=== PATIENT | female | born 1960 | race Two or more races ===

== ENCOUNTER 2022-12-30 11:52 | Outpatient (REF) | payer OTHER, SELFPAY ==
[2022-12-30 12:11] LABS: MANUAL DIFF FLAG NO
[2022-12-30 12:29] LABS: Basophils Absolute Auto 0.1 X10*3/uL (0.0-0.2); Basophils Percent Auto 0.7 % (0-2); Eosinophils Absolute Auto 0.3 X10*3/uL (0.0-0.4); Eosinophils Percent Auto 3.7 % (0-4); Hematocrit 29.7 % (37.0-47.0); Hemoglobin 8.7 g/dl (12.0-16.0); Imm Gran Abs Auto 0.02 X10*3/uL (0.00-0.03); Imm Gran Pct Auto 0.3 % (0.0-0.4); Immature Retic Fraction 31.2 % (3.0-15.9); Lymphocytes Absolute Auto 1.5 X10*3/uL (1.2-4.9); Lymphocytes Percent Auto 21.7 % (20-40); Mean Corpuscular HGB Conc 29.3 g/dl (31.0-35.0); Mean Corpuscular Hemoglobin 22.3 pg (27.0-33.0); Mean Corpuscular Volume 76.2 fL (80.0-98.0); Mean Platelet Volume 9.1 fL (9.4-12.3); Monocytes Absolute Auto 0.5 X10*3/uL (0.1-1.2); Neutrophils Absolute Auto 4.7 x10*3/uL (2.0-8.3); Neutrophils Percent Auto 66.6 % (45-73); Platelet Count 512 X10*3/uL (160-400); Retic HGB Equivalent 21.6 pg (30.0-35.0); Reticulocyte Percent 1.5 % (0.5-1.8); Reticulocytes Absolute 0.057 X10*6/uL (0.026-0.095)
[2022-12-30 12:58] LABS: Alanine Aminotransferase 12 U/L (0-31); Alkaline Phosphatase 80 U/L (39-117); Anion Gap 13 (12-20); Aspartate Amino Transferase 17 U/L (5-31); Bilirubin Total 0.6 mg/dL (0.0-1.0); Blood Urea Nitrogen 12 mg/dL (9-16); Calcium 9.4 mg/dL (8.4-10.2); Carbon Dioxide 24 mmol/L (22-29); Chloride 105 mmol/L (96-108); Cholesterol 231 mg/dL; Estimated Glomerular Filt Rate > 60; Glucose Fasting 92 mg/dL (60-99); HDL Cholesterol 63 mg/dL; LDL Cholesterol Calculated 141 mg/dl; Potassium 4.5 mmol/L (3.3-5.1); Sodium 137 mmol/L (135-145); Total Protein 7.8 g/dL (6.5-8.0); Triglycerides 135 mg/dL
[2022-12-30 13:12] LABS: Ferritin 7 ng/mL (10-250)
[2022-12-30 13:13] LABS: Erythrocyte Sedimentation Rate 70 MM/HR (0-20)
== END 2022-12-30 11:53 | disposition home or self-care (01) ==
LOC: HO.LAB 11:52
PROVIDERS: PCP Internal Medicine Medical Oncology; Visit Provider Internal Medicine Medical Oncology
DX: D64.9 Anemia, unspecified (principal); E78.5 Hyperlipidemia, unspecified; E66.9 Obesity, unspecified
CPT/HCPCS: 36415; 80053; 80061; 82728; 85025; 85045; 85652

== ENCOUNTER 2023-01-18 09:11 | Day surgery (SDC) | payer OTHER, SELFPAY ==
--- NOTE | 2023-01-17 12:07 | HO.ANESPROP2 ---
Documented by User: Emelina Allan NP 01/17/23 12:07 HPI - Anesthesia Eval Consult details Narrative: 62yo F for Upper Endoscopy and Colonoscopy [facility] Past Medical History Medical History Anemia Asthma HTN (hypertension) Renal stones Surgical History Surgical History Hx of appendectomy Hx of tubal ligation Social History Social History Patient Tobacco Use Status: Never used Tobacco Are you DNR?: No Advance Directives: No Advance Directives Information Provided: Yes Nutrition Risks: No Nutritional Risk Meds Allergies Allergy/AdvReac Type Severity Reaction Status Date / Time iodine Allergy Unknown Unknown Verified 01/17/23 12:06 iv contrast Allergy Unknown Unknown Uncoded 01/17/23 12:06 Home Medications Medication Instructions Recorded Confirmed Last Taken Type albuterol sulfate 90 mcg/actuation inhalation 01/17/23 01/17/23 Unknown History aerosol inhaler (Ventolin HFA) benzonatate 100 mg capsule 100 mg PO TID 01/17/23 01/17/23 Unknown History cetirizine 10 mg tablet 10 mg PO DAILY 01/17/23 01/17/23 Unknown History erythromycin 5 mg/gram (0.5 %) eye ophthalmic (eye) 01/17/23 Unknown History ointment ferrous sulfate 325 mg (65 mg 325 mg PO DAILY 01/17/23 01/17/23 01/14/23 History iron) tablet,delayed release fluconazole 150 mg tablet mg PO 01/17/23 Unknown History lisinopril 30 mg tablet 30 mg PO DAILY 01/17/23 01/17/23 01/18/23 History pantoprazole 40 mg tablet,delayed 40 mg PO DAILY 01/17/23 01/17/23 Unknown History release Exam Exam Date and Time: January 17, 2023 120 Pertinent Lab Results Pertinent Lab Results: Laboratory Tests 12/30/22 12/30/22 12:09 12:09 WBC 7.0 Hgb 8.7 L Hct 29.7 L Plt Count 512 H Sodium 137 Potassium 4.5 Chloride 105 Carbon Dioxide 24 BUN 12 Creatinine 0.68 Assessment and Plan Assessment Anesthesia Assessment: Chart Reviewed Documented by User: Adelina Botello MD 01/18/23 11:22 [facility] Past Medical History Medical History Anemia Asthma HTN (hypertension) Renal stones Family History Family history of problems with anesthesia: No Surgical History Surgical History Hx of appendectomy Hx of tubal ligation History of Problems with Anesthesia: No Social History Social History Patient Tobacco Use Status: Never used Tobacco Are you DNR?: No Advance Directives: No Advance Directives Information Provided: Yes Nutrition Risks: No Nutritional Risk Meds Allergies Allergy/AdvReac Type Severity Reaction Status Date / Time iodine Allergy Unknown Unknown Verified 01/17/23 12:06 iv contrast Allergy Unknown Unknown Uncoded 01/17/23 12:06 Home Medications Medication Instructions Recorded Confirmed Last Taken Type albuterol sulfate 90 mcg/actuation inhalation 01/17/23 01/17/23 Unknown History aerosol inhaler (Ventolin HFA) benzonatate 100 mg capsule 100 mg PO TID 01/17/23 01/17/23 Unknown History cetirizine 10 mg tablet 10 mg PO DAILY 01/17/23 01/17/23 Unknown History erythromycin 5 mg/gram (0.5 %) eye ophthalmic (eye) 01/17/23 Unknown History ointment ferrous sulfate 325 mg (65 mg 325 mg PO DAILY 01/17/23 01/17/23 01/14/23 History iron) tablet,delayed release fluconazole 150 mg tablet mg PO 01/17/23 Unknown History lisinopril 30 mg tablet 30 mg PO DAILY 01/17/23 01/17/23 01/18/23 History pantoprazole 40 mg tablet,delayed 40 mg PO DAILY 01/17/23 01/17/23 Unknown History release Exam Airway Mallampati Class: II TM Dist: >3cm Neck ROM: Full Heart: rrr Lungs: cta Assessment and Plan Assessment Anesthesia Assessment: Anesthesia Plan Discussed Final Anesthetic Review Family History of Problems with Anesthesia: No History of Problems with Anesthesia: No NPO: Yes ASA Class: III Final Preanesthetic Review: No Changes in Pt Med Stat, Meds/Allgs Chart Reviewed, Consent Obtained/Reviewed and Anes Risks/Benef Reviewed Patient Risk: Intermediate Procedure Risk: Low Anesthetic Plan Anesthetic Plan: MAC: Disposition: Standard PACU
[2023-01-18] VITALS (7 sets, daily range): BP systolic 108–134; BP diastolic 43–67; PULSE 80–94; RESP 16–20; TEMP 36.4; O2SAT 96–99; BMI 31.8
[2023-01-18] MEDS: Lactated Ringers 1,000 ML 100 ML IVCONT (10:50)
--- NOTE | 2023-01-18 11:52 | MHC.SHP ---
Pre-Procedural Eval Section A Date of Service: 01/18/23 The patient is an INPATIENT: No Changes since office visit: No Cold of Flu in the past 2 weeks, No New Medical Problems, No Changes in Medication and No Patient answered all questions The History & Physical has been completed within 30 days and I have reviewed it.: Yes Section B Chief Complaint: Iron deficiency anemia, Other fecal abnormalities Allergies: Allergies Allergy/AdvReac Type Severity Reaction Status Date / Time iodine Allergy Unknown Unknown Verified 01/17/23 12:06 iv contrast Allergy Unknown Unknown Uncoded 01/17/23 12:06 Plan I have reviewed the history and physical and performed a pertinent physical examination on my patient. No changes have occurred unless specified. Time Spent With Patient Time: Total time managing care of this patient today ____ minutes.
--- NOTE | 2023-01-18 12:33 | P.BOP_ITS ---
Brief Operative Note Date of Service: 01/18/23 Pre-op diagnosis: iron def anemia heme pos stool Post-op diagnosis: same Procedure: egd colonoscopy Surgeon: Selwyn Leonard Anesthesia: MAC Was an Environmental Attorney used for this Procedure?: No Estimated blood loss (mL): 5 Pathology: other Condition: stable Disposition: PACU
--- NOTE | 2023-01-18 13:17 | OP_ITS ---
DATE OF SERVICE: 01/18/2023 SURGEON: Selwyn Leonard MD INDICATIONS: Iron deficiency anemia and Hemoccult-positive stools. PREOPERATIVE DIAGNOSIS: POSTOPERATIVE DIAGNOSIS: PROCEDURE PERFORMED: Upper endoscopy with biopsy, colonoscopy to the terminal ileum. ESTIMATED BLOOD LOSS: COMPLICATIONS: ANESTHESIA: Monitored anesthesia care. ASSISTANTS: SPECIMENS: DESCRIPTION OF PROCEDURE: A history and physical was performed. The risks and benefits of the procedure were explained to the patient, and informed consent was obtained. The patient was placed in the left lateral decubitus position. The Olympus video gastroscope was introduced into the esophagus, stomach, and duodenum. Examination was performed. The scope was removed she was repositioned for colonoscopy. A digital rectal exam was performed and was found to be normal. The Olympus pediatric video colonoscope was introduced into the rectum and advanced to the cecum without difficulty. The cecum was identified by transillumination, palpation, and identification of ileocecal valve. Examination was performed. The scope was removed. She tolerated the procedure well, and was returned to recovery area in stable condition. FINDINGS: Upper endoscopy: 1. Esophagus: The esophagus was normal. There was no esophagitis. There was a 5 cm hiatal hernia. Biopsies were obtained from the EG junction, which was slightly irregular. 2. Stomach: The stomach showed no evidence of masses, ulcers, or polyps. Antral biopsies were obtained to evaluate for H pylori. 3. Duodenum: The bulb and 2nd portion were normal. Biopsies were obtained from the 2nd portion to evaluate for malabsorption. Colonoscopy: The terminal ileum was examined and appeared normal. This was examined for about 20 cm. The visualized colonic mucosa was within normal limits without evidence of masses or ulcers. The quality of the prep was good. There was mild sigmoid diverticulosis. Retroflexed examination showed some small internal hemorrhoids. IMPRESSION: 1. Hiatal hernia. 2. Normal colonoscopy. RECOMMENDATION: 1. Follow up the biopsy results. 2. Repeat colonoscopy is recommended in 10 years for average risk individuals. MD BE Barahona/MODL / [id number]
== END 2023-01-18 14:34 | disposition home or self-care (01) ==
PROVIDERS: PCP Internal Medicine Medical Oncology; Visit Provider Internal Medicine Gastroenterology
PROC: (CPT 45378; principal; 2023-01-18 10:50)
DX: D50.9 Iron deficiency anemia, unspecified (principal); R19.5 Other fecal abnormalities; Z80.0 Family history of malignant neoplasm of digestive organs; K57.30 Diverticulosis of large intestine without perforation or abscess without bleeding; K64.8 Other hemorrhoids; K21.9 Gastro-esophageal reflux disease without esophagitis; K29.50 Unspecified chronic gastritis without bleeding; K44.9 Diaphragmatic hernia without obstruction or gangrene; I10 Essential (primary) hypertension; Z87.442 Personal history of urinary calculi; Z98.51 Tubal ligation status; Z79.899 Other long term (current) drug therapy; Z91.041 Radiographic dye allergy status
CPT/HCPCS: 45378; 43239; 88305; 88342; J2250; J2370

== ENCOUNTER 2023-01-25 13:47 | Outpatient (REF) | payer OTHER, SELFPAY ==
[2023-01-25 13:58] LABS: MANUAL DIFF FLAG NO
[2023-01-25 14:55] LABS: Basophils Absolute Auto 0.1 X10*3/uL (0.0-0.2); Basophils Percent Auto 0.7 % (0-2); Eosinophils Absolute Auto 0.3 X10*3/uL (0.0-0.4); Eosinophils Percent Auto 4.3 % (0-4); Hematocrit 32.3 % (37.0-47.0); Hemoglobin 9.3 g/dl (12.0-16.0); Imm Gran Abs Auto 0.02 X10*3/uL (0.00-0.03); Imm Gran Pct Auto 0.3 % (0.0-0.4); Immature Retic Fraction 30.2 % (3.0-15.9); Lymphocytes Absolute Auto 1.3 X10*3/uL (1.2-4.9); Lymphocytes Percent Auto 18.5 % (20-40); Mean Corpuscular HGB Conc 28.8 g/dl (31.0-35.0); Mean Corpuscular Hemoglobin 22.6 pg (27.0-33.0); Mean Corpuscular Volume 78.6 fL (80.0-98.0); Mean Platelet Volume 9.5 fL (9.4-12.3); Monocytes Absolute Auto 0.6 X10*3/uL (0.1-1.2); Monocytes Percent Auto 8.1 % (2-11); Neutrophils Absolute Auto 4.7 x10*3/uL (2.0-8.3); Neutrophils Percent Auto 68.1 % (45-73); Platelet Count 416 X10*3/uL (160-400); Red Blood Count 4.11 X10*6/uL (4.20-5.50); Red Cell Distribution Width 23.4 % (11.0-16.0); Retic HGB Equivalent 24.7 pg (30.0-35.0); Reticulocyte Percent 1.7 % (0.5-1.8); White Blood Count 6.9 X10*3/uL (4.8-10.8)
[2023-01-25 15:41] LABS: Ferritin 13 ng/mL (10-250)
== END 2023-01-25 13:48 | disposition home or self-care (01) ==
LOC: HO.LAB 13:47
PROVIDERS: PCP Internal Medicine Medical Oncology; Visit Provider Internal Medicine Medical Oncology
DX: E78.5 Hyperlipidemia, unspecified (principal); E66.9 Obesity, unspecified; D50.0 Iron deficiency anemia secondary to blood loss (chronic)
CPT/HCPCS: 36415; 82728; 85025; 85045

== ENCOUNTER → 2023-02-23 08:14 | Outpatient (BNVA) | payer OTHER, SELFPAY | PROVIDERS: PCP Internal Medicine Medical Oncology; Visit Provider Internal Medicine Gastroenterology ==

== ENCOUNTER 2023-04-01 17:26 | Outpatient (REF) | payer MEDICAID, SELFPAY ==
[2023-04-01 18:18] LABS: Appearance Urine Cloudy; Color Urine Yellow; Glucose Urine UA Negative (Negative); Leukocyte Esterase Urine Large (3+) (Negative); Nitrite Urine Negative (Negative); PH 5.5 (5.0-9.0); UMIC TRIGGER UACC YES; Urine Blood Trace (Negative); Urine Ketones Negative (Negative); Urine Protein Trace mg/dL (Neg-Trace)
[2023-04-01 18:22] LABS: Bacteria Urine 4+ (None Seen); Hyaline Casts Urine 0-2 /LPF (0-2); RBC Urine 0-2 /HPF (0-2); UACC Culture Trigger YES; WBC Urine >50 /HPF (0-5)
== END 2023-04-01 17:27 | disposition home or self-care (01) ==
LOC: HO.HHCLNP 17:26
PROVIDERS: Visit Provider Internal Medicine Medical Oncology
DX: N39.0 Urinary tract infection, site not specified (principal)
CPT/HCPCS: 81001; 87086

== ENCOUNTER 2023-04-13 14:14 | Outpatient (REF) | payer MEDICAID, SELFPAY ==
[2023-04-15 22:33] LABS: TS Negative Control Passed; TS Panel A 0; TS Panel B 0; TS Positive Control Passed; TSpotTB Negative (Negative)
== END 2023-04-13 14:15 | disposition home or self-care (01) ==
LOC: HO.LAB 14:14
PROVIDERS: PCP Internal Medicine Medical Oncology; Visit Provider Internal Medicine Medical Oncology
DX: Z11.1 Encounter for screening for respiratory tuberculosis (principal)
CPT/HCPCS: 36415; 86481

== ENCOUNTER 2023-08-05 17:22 | Emergency (ER) | payer MEDICAID, SELFPAY ==
--- NOTE | ~2023-08-05 | CT_ITS ---
EXAMINATION: CT ABDOMEN AND PELVIS WITHOUT CONTRAST CLINICAL INFORMATION: right abdominal pain. COMPARISON: No pertinent prior studies are available for comparison. TECHNIQUE: Multidetector volumetric imaging was performed from the superior aspect of the liver through the pubic symphysis without contrast per renal stone protocol. Sagittal and coronal reformatted images were obtained on the technologist workstation. This CT examination was performed using dose optimization techniques as appropriate, variously including the following: *Automated exposure control *Adjustment of mA and/or kV according to patient size (this includes techniques or standardized protocols for targeted exams where dose is matched to indication/reason for exam; i.e. extremities or head) *Use of iterative reconstruction technique DLP: 1259 mGy-cm. FINDINGS: LUNG BASES: Minimal dependent atelectasis. Moderate-sized hiatal hernia. LIVER, GALLBLADDER, BILIARY TREE: The non-contrast liver is normal in size, shape, and attenuation. No focal hepatic lesion or biliary ductal dilatation is present. The gallbladder is unremarkable with no evidence of radiopaque gallstones, gallbladder wall thickening, or obvious pericholecystic inflammatory changes. PANCREAS: Unremarkable. SPLEEN: Unremarkable. ADRENAL GLANDS: Unremarkable. KIDNEYS AND URETERS: No hydronephrosis or hydroureter. No perinephric stranding. Multiple bilateral nonobstructing intrarenal calculi are seen the largest on the left is a 0.8 cm lower pole calculi and the largest on the right is a 0.6 cm upper pole calculi. I do not appreciate any ureteric calculi. BLADDER: Unremarkable. GASTROINTESTINAL TRACT: Scattered colonic diverticulosis but no colonic wall thickening or pericolonic inflammatory change to suggest diverticulitis. Mild amount of stool seen in the distal ileum possibly due to reflux ABDOMINAL WALL: No significant hernia is appreciated. LYMPHOVASCULAR STRUCTURES: No lymphadenopathy. The aorta is unremarkable.. PELVIC VISCERA: Retroverted uterus. OSSEUS STRUCTURES: Unremarkable. CT/CT abdomen pelvis wo IV con IMPRESSION: Multiple bilateral nonobstructing intrarenal calculi. No obstructive changes to the kidneys. No ureteric calculi. No acute intra-abdominal process seen.
--- NOTE | ~2023-08-05 | CT_ITS ---
EXAMINATION: CT HEAD WITHOUT CONTRAST CLINICAL INFORMATION: Headache. COMPARISON: None TECHNIQUE: Contiguous axial imaging was performed from the skull base to vertex without intravenous administration of contrast. This CT examination was performed using dose optimization techniques as appropriate, variously including the following: *Automated exposure control *Adjustment of mA and/or kV according to patient size (this includes techniques or standardized protocols for targeted exams where dose is matched to indication/reason for exam; i.e. extremities or head) *Use of iterative reconstruction technique DLP: 688 mGy-cm FINDINGS: There is no evidence of acute intracranial hemorrhage or edematous territorial infarction. There is no abnormal attenuation within the brain parenchyma. Charles-white matter differentiation is preserved. The ventricles are normal in size and configuration. No evidence for obstructive hydrocephalus. No abnormal mass effect or midline shift. No extra-axial fluid collections. No acute soft tissue or osseous abnormalities. The mastoid air cells and paranasal sinuses are clear. CT/CT head/brain wo IV con IMPRESSION: No evidence of acute intracranial hemorrhage or edematous territorial infarction.
[2023-08-05 17:30] VITALS: BP 127/70; BP 144/52; PULSE 80; RESP 16; TEMP 36.6; O2SAT 98; BMI 42.0
--- NOTE | 2023-08-05 17:34 | ECG_ITS ---
Test Reason : PAIN Blood Pressure : / mmHG Vent. Rate : 081 BPM Atrial Rate : 081 BPM P-R Int : 162 ms QRS Dur : 084 ms QT Int : 368 ms P-R-T Axes : 039 076 055 degrees QTc Int : 427 ms Normal sinus rhythm Normal ECG When compared with ECG of 05-SEP-2003 19:57, Nonspecific T wave abnormality no longer evident in Anterior leads Referred By: Mic Rowell Electronically Signed By:DEYSI WILKINSON MD
[2023-08-05 17:53] VITALS: BP 144/52; PULSE 84; RESP 18; TEMP 36.6; O2SAT 98
[2023-08-05 17:55] LABS: MANUAL DIFF FLAG NO
[2023-08-05 17:56] LABS: Basophils Percent Auto 0.4 % (0-2); Eosinophils Absolute Auto 0.3 X10*3/uL (0.0-0.4); Eosinophils Percent Auto 2.8 % (0-4); Hematocrit 36.7 % (37.0-47.0); Hemoglobin 11.2 g/dl (12.0-16.0); Imm Gran Abs Auto 0.03 X10*3/uL (0.00-0.03); Imm Gran Pct Auto 0.3 % (0.0-0.4); Lymphocytes Absolute Auto 1.3 X10*3/uL (1.2-4.9); Lymphocytes Percent Auto 13.2 % (20-40); Mean Corpuscular HGB Conc 30.5 g/dl (31.0-35.0); Mean Corpuscular Hemoglobin 26.6 pg (27.0-33.0); Mean Corpuscular Volume 87.2 fL (80.0-98.0); Mean Platelet Volume 9.9 fL (9.4-12.3); Monocytes Absolute Auto 0.5 X10*3/uL (0.1-1.2); Monocytes Percent Auto 4.5 % (2-11); Neutrophils Percent Auto 78.8 % (45-73); Platelet Count 336 X10*3/uL (160-400); Red Blood Count 4.21 X10*6/uL (4.20-5.50); Red Cell Distribution Width 16.5 % (11.0-16.0); White Blood Count 10.1 X10*3/uL (4.8-10.8)
[2023-08-05 18:13] LABS: Alanine Aminotransferase 20 U/L (0-31); Albumin Level 3.8 g/dL (3.5-5.0); Alkaline Phosphatase 84 U/L (39-117); Anion Gap 11 (12-20); Aspartate Amino Transferase 21 U/L (5-31); Bilirubin Total 0.3 mg/dL (0.0-1.0); Blood Urea Nitrogen 23 mg/dL (9-16); Calcium 9.3 mg/dL (8.4-10.2); Carbon Dioxide 26 mmol/L (22-29); Chloride 107 mmol/L (96-108); Creatinine Clr Calc Pharmacy 46.3; Estimated Glomerular Filt Rate > 60; Glucose Random 112 mg/dL (60-115); Lipase 28 U/L (8-78); Potassium 4.9 mmol/L (3.3-5.1); Prothrombin Time 11.9 SEC (11.1-13.3); Sodium 139 mmol/L (135-145); Total Protein 8.3 g/dL (6.5-8.0)
[2023-08-05 18:16] LABS: Partial Thromboplastin Time 21.7 SEC (26.0-36.4)
[2023-08-05 18:20] LABS: Troponin-I High Sensitivity < 2.7 ng/L (<3.5-17.0)
[2023-08-05 18:30] VITALS: BP 121/48; PULSE 75
[2023-08-05 18:32] VITALS: BP 128/55; PULSE 82
--- NOTE | 2023-08-05 18:32 | ED_ITS ---
HPI - General Adult General Chief complaint: General Medical Stated complaint: abd pain Time Seen by Provider: 08/05/23 17:22 Source: patient, RN notes reviewed and old records reviewed Mode of arrival: ambulatory Limitations: no limitations History of Present Illness HPI narrative: 62-year-old female with past medical history significant for chronic anemia, hypertension, GERD presents for evaluation of weakness. Patient reports that she had abdominal pain with increased weakness and dizziness starting earlier today. She reports a similar episode in November of this year where she was seen at [facility] and needed a blood transfusion. Patient reports that she has had on off nose bleeds for the last 7 months. She is followed up with ENT and was told that my nose is not the issue. Patient has not had a nosebleed at all today he denies any black or bloody stool her chief complaint today is abdominal pain and weakness. Related Data Home Medications Medication Instructions Recorded Confirmed albuterol sulfate 90 mcg/actuation inhalation 01/17/23 01/17/23 aerosol inhaler (Ventolin HFA) benzonatate 100 mg capsule 100 mg PO TID 01/17/23 01/17/23 cetirizine 10 mg tablet 10 mg PO DAILY 01/17/23 01/17/23 erythromycin 5 mg/gram (0.5 %) eye ophthalmic (eye) 01/17/23 ointment ferrous sulfate 325 mg (65 mg 325 mg PO DAILY 01/17/23 01/17/23 iron) tablet,delayed release fluconazole 150 mg tablet mg PO 01/17/23 lisinopril 30 mg tablet 30 mg PO DAILY 01/17/23 01/17/23 pantoprazole 40 mg tablet,delayed 40 mg PO DAILY 01/17/23 01/17/23 release Allergies Allergy/AdvReac Type Severity Reaction Status Date / Time iodine Allergy Unknown Unknown Verified 08/05/23 17:39 iv contrast Allergy Unknown Unknown Uncoded 08/05/23 17:39 Review of Systems 2 Constitutional: Constitutional: Denies chills, Denies fever(s) and Denies headache(s) ENT: Denies headache(s) Cardiovascular: Cardiovascular: Denies chest pain and Denies dyspnea Respiratory: Respiratory: Denies cough and Denies dyspnea Gastrointestinal: Gastrointestinal: Reports abdominal pain, Denies melena, Denies hematochezia, Reports nausea and Denies vomiting Musculoskeletal: Musculoskeletal: Denies back pain Integumentary/Breasts: Skin/Breast: Denies rash Neurologic: Denies headache(s) [facility] Past Medical History Medical History (Updated 08/05/23 @ 18:41 by Mic Rowell) Anemia Renal stones Asthma HTN (hypertension) Surgical History Hx of appendectomy Hx of tubal ligation Social History Social History Alcohol intake: never Patient Tobacco Use Status: Never used Tobacco Smoked in Last 30 Days: No Use of substances other than those prescribed or required for medical reasons: No Advance Directives: No Advance Directives Information Provided: Yes Patient : No Physical Exam ED Vital Signs: Vital Signs - 24 hr 08/05/23 17:30 08/05/23 17:53 08/05/23 18:30 Temperature 97.8 F 97.8 F Pulse Rate 80 84 75 Respiratory Rate 16 18 Blood Pressure 144/52 H 144/52 H 121/48 L Pulse Oximetry 98 98 Oxygen Delivery Method Room Air Room Air 08/05/23 18:32 08/05/23 18:33 08/05/23 19:26 Temperature Pulse Rate 82 87 81 Respiratory Rate 17 Blood Pressure 128/55 L 115/59 L 121/48 L Pulse Oximetry 97 Oxygen Delivery Method Room Air BMI result Body Mass Index 42.0 Const General: healthy appearing, comfortable, no acute distress, alert and awake Nutritional Appearance: well nourished Orientation/consciousness: patient oriented x3 HENMT Head: Yes normocephalic and Yes atraumatic General nose exam: Normal external nose present, Normal nares present, No nasal polyps present, Normal nasal mucous membranes and turbinates present and no epistaxis Eyes Eyelids: Yes eyelids normal Conjunctivae: conjunctivae normal Sclerae: sclerae normal Corneas: corneas normal Pupils: Equal, round and reactive pupils present EOM: EOMs intact bilaterally Neck Neck: Yes full ROM Resp Effort & Inspection: normal respiratory effort, able to speak in complete sentences, no audible wheezes and not labored Auscultation: clear to auscultation bilaterally Cardio Rate: regular rate Rhythm: regular rhythm GI Inspection: No distended Palpation (GI): Soft to palpation, not firm, nontender, no guarding and not rigid Skin General skin exam: no rashes or lesions noted and elasticity normal Neuro General: patient oriented x3 Cranial nerves: Yes Equal, round and reactive pupils present and Yes Bilaterally intact EOM present Cognition (Neuro): normal cognition Extrem Other: Moving all extremities well without any obvious deformities Course Reevaluation(s) Reevaluation #1: patient's workup largely unremarkable, shows requesting CT scan of brain due to the headaches which I ordered. There was no significant acute pathology noted on the head CT for abdominal CT scan. Labs without any significant abnormalities compared to baseline. But for some not get a UA over the patient denies any specific symptoms and would like to follow-up with PCP regarding this. Given that she has no symptoms I feel it is appropriate to discharge the patient home at this time Time: 22:02 Medications Administered Discontinued Medications Generic Name Dose Route Start Last Admin Trade Name Freq PRN Reason Stop Dose Admin Sodium Chloride 1,000 mls @ 999 mls/hr 08/05/23 19:15 08/05/23 20:37 Ns IV 08/05/23 20:15 Infused .Q1H1M ESTELA Infusion Medical Decision Making Medical Decision Making [facility] Narrative: 62-year-old female presents for evaluation of abdominal pain and weakness. She reports a history of chronic anemia but no nose bleeds or black or bloody stool today. On exam, the patient's vital signs are stable, her blood pressure is slightly elevated to 144/52. Her EKG is normal sinus rhythm with a rate of 81 beats per minute. No ectopy, no ischemic changes. Labs are pending this time. Differential Diagnosis Differential Diagnoses: The differential diagnosis associated with the presentation includes Abdominal pain Gastroenteritis Symptomatic anemia Chronic anemia Epistaxis GI bleed Admission/Observation Consideration of admission/observation: Escalation of care including admission/observation considered Lab Data [facility] Lab Attestation statement: I reviewed the patient's lab results. patient has no leukocytosis, she has anemia however significantly improved compared to her recent baseline with a hemoglobin 11.2 and hematocrit 36.7. Patient's most recent hemoglobin hematocrit from a was 9.3 and 32.3 respectively. Anemia does not appear to be the acute issue. Patient's chemistries do not have any significant electrolyte abnormalities. Her BUN is slightly above normal at 23 but her creatinine is normal at 0.71. 08/05/23 17:51 08/05/23 17:51 Labs: Lab Results 08/05/23 Range/Units 17:51 WBC 10.1 (4.8-10.8) X10*3/uL RBC 4.21 (4.20-5.50) X10*6/uL Hgb 11.2 L D (12.0-16.0) g/dl Hct 36.7 L (37.0-47.0) % MCV 87.2 (80.0-98.0) fL MCH 26.6 L (27.0-33.0) pg MCHC 30.5 L (31.0-35.0) g/dl RDW 16.5 H (11.0-16.0) % Plt Count 336 (160-400) X10*3/uL MPV 9.9 (9.4-12.3) fL Immature Gran % (Auto) 0.3 (0.0-0.4) % Neut % (Auto) 78.8 H (45-73) % Lymph % (Auto) 13.2 L (20-40) % [place] % (Auto) 4.5 (2-11) % Eos % (Auto) 2.8 (0-4) % Baso % (Auto) 0.4 (0-2) % Lymph # (Auto) 1.3 (1.2-4.9) X10*3/uL [place] # (Auto) 0.5 (0.1-1.2) X10*3/uL Eos # (Auto) 0.3 (0.0-0.4) X10*3/uL Baso # (Auto) 0.0 (0.0-0.2) X10*3/uL Abs Immat Gran (auto) 0.03 (0.00-0.03) X10*3/uL Absolute Neuts (auto) 8.0 (2.0-8.3) x10*3/uL Absolute Nucleated RBC 0.000 (0.0-0.012) X10*3/uL Nucleated RBC % (auto) 0.0 (0.0-0.2) /100WBC PT 11.9 (11.1-13.3) SEC INR 1.0 (0.9-1.1) APTT 21.7 L (26.0-36.4) SEC Sodium 139 (135-145) mmol/L Potassium 4.9 (3.3-5.1) mmol/L Chloride 107 (96-108) mmol/L Carbon Dioxide 26 (22-29) mmol/L Anion Gap 11 L (12-20) BUN 23 H (9-16) mg/dL Creatinine 0.71 (0.5-1.4) mg/dL Estim Creat Clear Calc 46.3 Estimated GFR > 60 Random Glucose 112 (60-115) mg/dL Calcium 9.3 (8.4-10.2) mg/dL Total Bilirubin 0.3 (0.0-1.0) mg/dL AST 21 (5-31) U/L ALT 20 (0-31) U/L Alkaline Phosphatase 84 (39-117) U/L Troponin I High Sens < 2.7 (<3.5-17.0) ng/L Total Protein 8.3 H (6.5-8.0) g/dL Albumin 3.8 (3.5-5.0) g/dL Lipase 28 (8-78) U/L Blood Type O Positive Antibody Screen NEGATIVE Independent Interpretation I performed an independent interpretation of an: EKG ( Normal sinus rhythm with rate of 81 beats per minute. No ectopy or ischemic changes) Radiology Impression Discussion of test interpretation with radiology: I have reviewed the radiologist's reading. ( no evidence of acute intracranial hemorrhage or edematous territorial infarction) Radiologist Impression: multiple bilateral nonobstructing intrarenal calculi no obstructive changes to the kidneys. Discharge Plan Discharge Clinical Impression: Abdominal pain, Dizziness Patient Disposition: Home, Self-Care Instructions: Dizziness (ED) Additional Instructions: Your workup in the emergency department today was reassuring this includes your blood work, CT scan of your head as well as her abdomen if you have any concerns about a urinary tract infection, you may follow-up with doctor, as a urinalysis was not performed today return for new or worsening symptoms Prescriptions: No Action cetirizine 10 mg tablet 10 mg PO DAILY fluconazole 150 mg tablet PO benzonatate 100 mg capsule 100 mg PO TID pantoprazole 40 mg tablet,delayed release (DR/EC) 40 mg PO DAILY erythromycin 5 mg/gram (0.5 %) ointment ophthalmic (eye) lisinopril 30 mg tablet 30 mg PO DAILY albuterol sulfate [Ventolin HFA] 90 mcg/actuation HFA aerosol inhaler inhalation ferrous sulfate 325 mg (65 mg iron) tablet,delayed release (DR/EC) 325 mg PO DAILY
[2023-08-05 18:33] VITALS: BP 115/59; PULSE 87
[2023-08-05 19:26] VITALS: BP 121/48; PULSE 81; RESP 17; O2SAT 97
[2023-08-05] MEDS: 0.9 % Sodium Chloride 1,000 ML 999 ML IV (19:26)
== END 2023-08-05 22:32 | disposition home or self-care (01) ==
PROVIDERS: Physician Assistant; Emergency Provider Emergency Medicine; PCP Internal Medicine Medical Oncology
DX: R10.9 Unspecified abdominal pain (principal); R42 Dizziness and giddiness; D64.9 Anemia, unspecified; R07.89 Other chest pain; I10 Essential (primary) hypertension; R51.9 Headache, unspecified; Z79.899 Other long term (current) drug therapy
CPT/HCPCS: 36415; 70450; 74176; 80053; 83690; 84484; 85025; 85610; 85730; 86850; 86900; 86901; 93005; 96360; 99284; 99285

== ENCOUNTER 2023-09-30 14:37 | Outpatient (REF) | payer MEDICAID, SELFPAY | END 2023-09-30 14:38 | disposition home or self-care (01) | LOC: HO.MAMMO 14:37 | PROVIDERS: PCP Internal Medicine Medical Oncology; Visit Provider Internal Medicine Medical Oncology | DX: Z12.31 Encounter for screening mammogram for malignant neoplasm of breast (principal) | CPT/HCPCS: 77063; 77067 ==

== ENCOUNTER → 2023-09-30 15:00 | Outpatient (BNV) | payer MEDICAID, SELFPAY | PROVIDERS: PCP Internal Medicine Medical Oncology; Visit Provider Radiology Diagnostic Radiology | DX: Z12.31 Encounter for screening mammogram for malignant neoplasm of breast (principal) | CPT/HCPCS: 77063; 77067 ==

== ENCOUNTER 2023-10-25 18:56 | Outpatient (REF) | payer MEDICAID, SELFPAY | END 2023-10-25 18:57 | disposition home or self-care (01) | LOC: HO.LNP 18:56 | PROVIDERS: Visit Provider Internal Medicine Medical Oncology | DX: J02.9 Acute pharyngitis, unspecified (principal) | CPT/HCPCS: 87070 ==

== ENCOUNTER 2024-03-06 14:01 | Outpatient (REF) | payer MEDICAID, SELFPAY ==
[2024-03-06 14:16] LABS: MANUAL DIFF FLAG NO
[2024-03-06 14:38] LABS: Basophils Absolute Auto 0.1 X10*3/uL (0.0-0.2); Basophils Percent Auto 0.5 % (0-2); Eosinophils Absolute Auto 0.2 X10*3/uL (0.0-0.4); Eosinophils Percent Auto 2.5 % (0-4); Hematocrit 23.5 % (37.0-47.0); Imm Gran Abs Auto 0.04 X10*3/uL (0.00-0.03); Imm Gran Pct Auto 0.4 % (0.0-0.4); Lymphocytes Absolute Auto 1.4 X10*3/uL (1.2-4.9); Lymphocytes Percent Auto 14.5 % (20-40); Mean Corpuscular HGB Conc 26.8 g/dl (31.0-35.0); Mean Corpuscular Hemoglobin 17.5 pg (27.0-33.0); Mean Corpuscular Volume 65.5 fL (80.0-98.0); Mean Platelet Volume 8.9 fL (9.4-12.3); Monocytes Absolute Auto 0.6 X10*3/uL (0.1-1.2); Monocytes Percent Auto 6.8 % (2-11); NRBC Pct Auto 0.2 /100WBC (0.0-0.2); Neutrophils Absolute Auto 7.1 x10*3/uL (2.0-8.3); Neutrophils Percent Auto 75.3 % (45-73); Platelet Count 568 X10*3/uL (160-400); Red Blood Count 3.59 X10*6/uL (4.20-5.50); Red Cell Distribution Width 20.1 % (11.0-16.0); White Blood Count 9.5 X10*3/uL (4.8-10.8)
[2024-03-06 14:42] LABS: Hemoglobin 6.3 g/dl (12.0-16.0); Prothrombin Time 12.7 SEC (11.1-13.3)
[2024-03-06 14:45] LABS: Partial Thromboplastin Time 27.9 SEC (26.0-36.8)
[2024-03-06 15:10] LABS: Alanine Aminotransferase 10 U/L (0-31); Albumin Level 3.9 g/dL (3.5-5.0); Alkaline Phosphatase 80 U/L (39-117); Anion Gap 11 (12-20); Aspartate Amino Transferase 15 U/L (5-31); Bilirubin Total 0.7 mg/dL (0.0-1.0); Blood Urea Nitrogen 20 mg/dL (9-16); Calcium 9.6 mg/dL (8.4-10.2); Carbon Dioxide 24 mmol/L (22-29); Chloride 105 mmol/L (96-108); Estimated Glomerular Filt Rate > 60; Glucose Random 96 mg/dL (60-115); Potassium 4.7 mmol/L (3.3-5.1); Sodium 135 mmol/L (135-145); Total Protein 8.2 g/dL (6.5-8.0)
[2024-03-06 15:24] LABS: Erythrocyte Sedimentation Rate 72 MM/HR (0-20)
[2024-03-06 15:26] LABS: Ferritin 4 ng/mL (10-250)
== END 2024-03-06 14:02 | disposition home or self-care (01) ==
LOC: HO.LAB 14:01
PROVIDERS: PCP Internal Medicine Medical Oncology; Visit Provider Internal Medicine Medical Oncology
DX: E66.01 Morbid (severe) obesity due to excess calories (principal); D50.9 Iron deficiency anemia, unspecified; R04.0 Epistaxis
CPT/HCPCS: 36415; 80053; 82728; 85025; 85610; 85652; 85730

== ENCOUNTER → 2024-03-09 09:42 | Outpatient (BNV) | payer MEDICAID, SELFPAY | PROVIDERS: PCP Internal Medicine Medical Oncology; Referring Provider Internal Medicine Medical Oncology; Visit Provider Internal Medicine | DX: D50.9 Iron deficiency anemia, unspecified (principal) | CPT/HCPCS: 99204; 99213; G2211 ==

== ENCOUNTER 2024-04-27 09:30 | Outpatient (RCR) | payer MEDICAID, SELFPAY ==
[2024-03-09 11:50] VITALS: BP 125/64; PULSE 84; RESP 18; TEMP 36.7; O2SAT 100; BMI 44.3
[2024-03-09] MEDS: Iron Sucrose Complex 200 MG in 0.9 % Sodium Chloride 100 ML 440 MG IV (13:11)
[2024-03-09] MEDS: 0.9 % Sodium Chloride Flush 10 ML SYRINGE 5 ML IVFLUSH (13:42)
[2024-03-16 10:02] VITALS: BP 123/48; PULSE 82; RESP 18; TEMP 36.2; O2SAT 98
[2024-03-16] MEDS: Iron Sucrose Complex 200 MG in 0.9 % Sodium Chloride 100 ML 440 MG IV (10:25)
[2024-03-23 09:57] VITALS: BP 114/74; PULSE 85; RESP 18; TEMP 36.6
[2024-03-23] MEDS: Iron Sucrose Complex 200 MG in 0.9 % Sodium Chloride 100 ML 440 MG IV (10:08)
[2024-03-30 10:34] VITALS: BP 122/53; PULSE 88; RESP 18; TEMP 36.6; O2SAT 97
[2024-03-30] MEDS: Iron Sucrose Complex 200 MG in 0.9 % Sodium Chloride 100 ML 440 MG IV (10:51)
[2024-03-30] MEDS: 0.9 % Sodium Chloride Flush 10 ML SYRINGE 5 ML IVFLUSH (11:11)
[2024-04-06 10:24] VITALS: BP 129/97; PULSE 86; RESP 18; TEMP 36.2; O2SAT 96
[2024-04-06] MEDS: Iron Sucrose Complex 200 MG in 0.9 % Sodium Chloride 100 ML 440 MG IV (10:35)
[2024-04-06] MEDS: 0.9 % Sodium Chloride Flush 10 ML SYRINGE 5 ML IVFLUSH (10:52)
[2024-04-13 09:12] VITALS: BP 143/62; PULSE 73; RESP 18; TEMP 36.2; O2SAT 97
[2024-04-13] MEDS: Iron Sucrose Complex 200 MG in 0.9 % Sodium Chloride 100 ML 440 MG IV (09:29)
[2024-04-13] MEDS: 0.9 % Sodium Chloride Flush 10 ML SYRINGE 5 ML IVFLUSH (09:47)
[2024-04-20 09:26] VITALS: BP 116/45; PULSE 86; RESP 18; TEMP 36.4; O2SAT 98
[2024-04-20] MEDS: Iron Sucrose Complex 200 MG in 0.9 % Sodium Chloride 100 ML 440 MG IV (09:40)
[2024-04-27 09:26] VITALS: BP 114/63; PULSE 74; RESP 18; TEMP 35.9
[2024-04-27] MEDS: Iron Sucrose Complex 200 MG in 0.9 % Sodium Chloride 100 ML 440 MG IV (09:39)
== END 2024-04-27 10:00 | disposition home or self-care (01) ==
LOC: HO.INF 09:30
PROVIDERS: PCP Internal Medicine Medical Oncology; Visit Provider Internal Medicine
DX: D64.9 Anemia, unspecified (principal)
CPT/HCPCS: 96365; J1756

== ENCOUNTER 2024-07-06 15:50 | Outpatient (REF) | payer MEDICAID, SELFPAY ==
--- NOTE | ~2024-07-06 | XR_ITS ---
EXAMINATION: XR CHEST CLINICAL INFORMATION: Active asthma, dyspnea. COMPARISON: CT abdomen and pelvis of 08/05/2023. TECHNIQUE: 2 views of the chest were obtained. FINDINGS: Lung volumes are low. There is no gross pneumothorax. Heart size within normal limits. No significant pleural effusion. Mild degenerative changes of the thoracic spine. Mild left basilar streaky opacities with low lung volumes. Left retrocardiac air-fluid level. Hiatal hernia demonstrated on CT abdomen and pelvis of 08/05/2023. XR/XR chest 2V IMPRESSION: 1. Mild left basilar streaky opacities with low lung volumes. 2. Left retrocardiac air-fluid level. Hiatal hernia demonstrated on CT abdomen and pelvis of 08/05/2023. Electronically signed by: Reina Mitchell MD 07/16/2024 02:14 PM EDT
== END 2024-07-06 15:51 | disposition home or self-care (01) ==
LOC: HO.XRAY 15:50
PROVIDERS: PCP Internal Medicine Medical Oncology; Visit Provider Internal Medicine Medical Oncology
DX: J45.909 Unspecified asthma, uncomplicated (principal); R06.00 Dyspnea, unspecified
CPT/HCPCS: 71046

== ENCOUNTER 2024-12-14 11:25 | Outpatient (REF) | payer MEDICAID, SELFPAY ==
[2024-12-14 13:31] LABS: MANUAL DIFF FLAG NO
[2024-12-14 13:42] LABS: Basophils Absolute Auto 0.1 X10*3/uL (0.0-0.2); Basophils Percent Auto 0.9 % (0-2); Eosinophils Absolute Auto 0.3 X10*3/uL (0.0-0.4); Eosinophils Percent Auto 5.1 % (0-4); Hematocrit 39.2 % (37.0-47.0); Hemoglobin 12.2 g/dl (12.0-16.0); Imm Gran Abs Auto 0.01 X10*3/uL (0.00-0.03); Imm Gran Pct Auto 0.2 % (0.0-0.4); Immature Retic Fraction 14.6 % (3.0-15.9); Lymphocytes Absolute Auto 1.5 X10*3/uL (1.2-4.9); Lymphocytes Percent Auto 25.6 % (20-40); Mean Corpuscular HGB Conc 31.1 g/dl (31.0-35.0); Mean Corpuscular Hemoglobin 29.8 pg (27.0-33.0); Mean Corpuscular Volume 95.8 fL (80.0-98.0); Mean Platelet Volume 10.2 fL (9.4-12.3); Monocytes Absolute Auto 0.4 X10*3/uL (0.1-1.2); Monocytes Percent Auto 7.1 % (2-11); Neutrophils Absolute Auto 3.5 x10*3/uL (2.0-8.3); Neutrophils Percent Auto 61.1 % (45-73); Platelet Count 309 X10*3/uL (160-400); Red Blood Count 4.09 X10*6/uL (4.20-5.50); Red Cell Distribution Width 13.6 % (11.0-16.0); Retic HGB Equivalent 31.7 pg (30.0-35.0); Reticulocyte Percent 2.1 % (0.5-1.8); Reticulocytes Absolute 0.085 X10*6/uL (0.026-0.095); White Blood Count 5.7 X10*3/uL (4.8-10.8)
[2024-12-14 14:26] LABS: Ferritin 212 ng/mL (10-250)
[2024-12-17 15:28] LABS: IgA 476 mg/dL (70-320); IgG 1709 mg/dL (600-1540); IgM 82 mg/dL (50-300)
[2024-12-17 21:23] LABS: Prot Elec - Albumin 3.8 g/dL (3.8-4.8); Prot Elec - Alpha1 0.3 g/dL (0.2-0.3); Prot Elec - Alpha2 0.8 g/dL (0.5-0.9); Prot Elec - Beta 1 0.5 g/dL (0.4-0.6); Prot Elec - Beta 2 0.6 g/dL (0.2-0.5); Prot Elec - Gamma 1.5 g/dL (0.8-1.7); Prot Elec - Total Protein 7.5 g/dL (6.1-8.1)
== END 2024-12-14 11:26 | disposition home or self-care (01) ==
LOC: HO.10HDL 11:25
PROVIDERS: Visit Provider Internal Medicine Medical Oncology
DX: D50.9 Iron deficiency anemia, unspecified (principal); E78.5 Hyperlipidemia, unspecified; E66.09 Other obesity due to excess calories
CPT/HCPCS: 36415; 82728; 82784; 84165; 85025; 85045; 86334

== ENCOUNTER 2024-12-17 17:01 | Outpatient (REF) | payer MEDICAID, SELFPAY ==
[2024-12-17 17:12] LABS: Appearance Urine Turbid; Color Urine Yellow; Glucose Urine UA Negative (Negative); Leukocyte Esterase Urine Large (3+) (Negative); Nitrite Urine Negative (Negative); PH 5.5 (5.0-9.0); UMIC TRIGGER UA YES; Urine Blood Trace (Negative); Urine Ketones Trace mg/dL (Negative); Urine Protein Trace mg/dL (Neg-Trace)
[2024-12-17 17:23] LABS: Bacteria Urine 4+ (None Seen); RBC Urine 0-2 /HPF (0-2); WBC Urine 21-50 /HPF (0-5)
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
--- OUTSIDE RECORDS SUMMARY | 2024-12-17 18:11 | XMS_ITS | Data Portability ---
Author Organization [place] [facility], Allergy Address [address] [address] Assessment No assessment recorded. Plan of Treatment Reminders Order Date Submit Date Provider Last Modified By Organization Details Last Modified Time Details Appointments None record ed. Lab None record ed. Referral None record ed. Procedures None record ed. Surgeries None record ed. Imaging None record ed. Medication Orders None record ed. Patient TargetsNo targets recorded. Patient InstructionsNo instructions recorded. Reason for Referral None Reported. Results Created Date Observation Date Name Description Value Unit Range Abnormal Flag Note LastModifiedBy Organization Detail LastModifiedTime 02/07/20 24 08/05/2023 CT, head + brain , w/ contr ast No observ ation record ed. [email or web address] Not Available 02/06 14:28:29 Result Notes None recorded. Problems Name Problem SNOMED Code Status Onset Date Resolution Date Notes Provider Name and Address Organization Details Recorded Time Bleeding from nose 005647078 Active 2022 Epistaxis; Note: Date Diagnosed: 08/04/2023 10:17 AM (R04.0) Not Available [facility] 4 03:25:05 Dizziness and giddiness 971934743 Active 2022 Dizziness and giddiness; Note: Date Diagnosed: 08/04/2023 10:34 AM (R42) Not Available [facility] 4 03:25:05 Headache 34119346 Active 2022 Headache, unspecifie d; Note: Date Diagnosed: 08/04/2023 10:34 AM (R51.9) Not Available [facility] 4 03:25:05 Essential hypertens ion 68584522 Active 2022 Essential (primary) hypertensi on; Note: Date Diagnosed: 08/04/2023 10:41 AM (I10) Not Available [facility] 4 03:25:04 Anterior epistaxis 279307274 Active 2023 JUAN ANTONIO LEIGH MD [address] [facility] [place],[facility], [place], [address] , [facility] 4 09:53:04 Problem Notes None recorded. Procedures Surgical History Date Name Laterality Status Provider Name and Address Organization Details Recorded Time 4 Epistaxis Simple Nasal Cautery Right completed JUAN ANTONIO LEIGH MD [address] [place] [address], [place], [address], [facility] 02/02/2024 09:50:16 Imaging Results Imaging Date Name Status LastModified by Organiz ation Details LastModified Time 08/05/2023 CT, head + brain, w/ contrast completed [email or web address] Information not available 02/07/2024 14:28:29 Procedure Notes None recorded. Medical Equipment None Reported. Allergies Allergen ID Allergen Name Allergen Category Reaction Reaction Severity Criticality Documentation Date Start Date Code Code System Note Provider Name and Address Organization Details Recorded Time [id number] Iodinated contrast media (substanc e) medicatio n other Not available Not available 01/31/2024 [id number] SNOMED React ion: Unkno wn; Not Available [facility] 4 01:22:27 Medications Name Sig Start Date Stop Date Status Note LastModified by Organization Details LastModified Time vitamin d3 1,000 unit softg active Not Available Not Available Not Available melatonin 5 mg tablet active Not Available Not Available Not Available fluconazo le 100 mg tablet 02/01 completed Not Available Not Available Not Available cetirizin e 10 mg tablet 02/01 completed Medicatio n ID: [id number] Br and Name: cetirizin e Send Method: E-Prescri bed Subs Allowed: subs OK Medica tionGener icName: cetirizin e Medicat ion ID: [id number] Br and Name: cetirizin e Send Method: E-Prescri bed Subs Allowed: subs OK Medica tionGener icName: cetirizin e Not Available Not Available Not Available methylpre dnisolone 32 mg tablet Take 1 tablet by mouth single dose active Not Available Not Available No t Available meclizine 25 mg tablet active Not Available Not Available Not Available pantopraz ole 40 mg tablet,de layed release active Medicatio n ID: [id number] Br and Name: pantopraz ole Send Method: E-Prescri bed Subs Allowed: subs OK Medica tionGener icName: pantopraz ole Not Available Not Available Not Available diphenhyd ramine 25 mg tablet Take 2 tablet by mouth single dose 02/01 completed Not Available Not Available Not Available venlafaxi ne 50 mg tablet active Not Available Not Available Not Available lisinopri l 30 mg tablet active Medicatio n ID: [id number] Br and Name: lisinopri l Send Method: E-Prescri bed Subs Allowed: subs OK Medica tionGener icName: lisinopri l Not Available Not Available Not Available ferrous sulfate 325 mg (65 mg iron) tablet,de layed release active Not Available Not Available Not Available Ventolin HFA 90 mcg/actua tion aerosol inhaler active Medicatio n ID: [id number] Br and Name: Ventolin HFA Send Method: E-Prescri bed Subs Allowed: subs OK Medica tionGener icName: Ventolin HFA Not Available Not Available Not Available cholecalc iferol (vitamin D3) 25 mcg (1,000 unit) capsule active Not Available Not Available Not Available mirtazapi ne 7.5 mg tablet active Not Available Not Available Not Available melatonin 5 mg tablet active Medicatio n ID: [id number] Br and Name: MELATONIN 5 MG TABLET Se nd Method: E-Prescri bed Subs Allowed: subs OK Medica tionGener icName: MELATONIN 5 MG TABLET Not Available Not Available Not Available Vitals Date Recorded Body weight Provider Name an d Address Organization Details Last Updated DateTime 02/02/2024 48898.85 g Bina Roche [place] - [facility] 02/02/2024 09:25:14 Social History None recorded. Functional Status None recorded. Mental Status None recorded. Family History Nothing Reported. Medical History Condition Response Allergies/Hayfever Y Anemia Y Hypertension Y Gynecological HistoryNo gynecological history recorded. Obstetrics History GPAL:G 0 P 0 0 0 0 Past Encounters Encounter ID Performer Location Encounter Start Date Encounter Closed Date Diagnosis/Indication Diagnosis SNOMED-CT Code Diagnosis ICD10 Code Diagnosis Note [id number] JUAN ANTONIO LEIGH MD [facility] [address] [place] [address] 02/02/2024 09:16:27 02/02/2024 09:55:49 Anterior epistaxis [id number] R04.0 Most recent nosebleed was about a month ago. There was a small vessel of the right anterior septum which I cauterized . I did eligibility counselor her that I cannot be sure that this is the vessel that has been bleeding. Had some imaging at [facility] which I requested but per their report was normal. We had a detailed discussion on nasal humidifica tion with humidifier , saline sprays, saline jelly at night, applied to the outer nares. Using pressure and Afrin as needed for a nosebleed was discussed. Essential hypertension [id number] I10 Health Concerns Section Related Observation LastModified by Organization Detai ls LastModified Time None Recorded Concern Status LastModified by Organization Details LastModified Time None Recorded Advance Directives Directive None Recorded Payers Encounter Date Sequence Insurance Name Policy Number Policy Smith Covered Member ID Smith Member ID Guarantor Name 02/02/2024 1 [place] [facility] Natasha Schuster [id number] Natasha Schuster Notes Date Note Type Note Provider Name and Address Organization Details Recorded Time 02/02/2024 text/html 63 yo F presents with recurrent epistaxis. JUAN ANTONIO LEIGH MD [address], [address], [place] - [facility] 02/02/2024 09:57:05 OBGyn Episode No OBEpisode recorded.
--- OUTSIDE RECORDS SUMMARY | 2024-12-17 18:11 | XMS_ITS ---
Author Organization Carmelo Ching III, MD Address [address] [place] [address] [place] [address] Care Team Providers Care Maitre D' Name Role Phone Carmelo Ching Primary Care Provider [phone] Allergies Allergen (clinical drug ingredient) Drug/Non Drug [...] 1.3 BLD Positive Negative - Menstrating No REASON FOR VISIT Follow-up, Possible UTI, Lower back pain x 3 days, Urinary frequency x 3 days, Front lower quadrantpain x 3 days Medications Medication SIG (Take, Route, Frequency, Duration) Notes Start Date End Date Status EpiPen 2-Ramón 0.3 MG/0.3ML as directed Injection [...] for Asthma J45.909 Active Asthma 07/05/2024 Active Fexofenadine HCl 60 MG 1 tablet Orally O nce a day 11/16/2023 Active Melatonin 5 MG 1 tablet in the evening Orally Once a day Active Ventolin HFA 108 (90 Base) MCG/ACT Inhalation Active Pantoprazole Sodium 40 MG Oral Active Ferrous Sulfate 325 (65 Fe) MG Oral Active Meclizine HCl 25 MG 1 tablet Orally every 12 hrs As needed 10/17/2023 Active Venlafaxine HCl 50 MG 1 tablet with food Orally Once a day 09/23/2023 Active Social History Tobacco Use: Social History Observation Description Date Details (start date - stop date) Former Smoker NA - NA Sex Assigned At : Social History Observation Description Sex Assigned At Female Tobacco Use/Smoking Question Answer Notes Patient is a former smoker How long has it been since you last smoked? > 10 years Additional Findings: Tobacco Non-User Ex-cigaret te smoker Vital Signs Temperature 97.9 degrees Fahrenheit 12/18/19 25 Blood pressure systolic 141 mm Hg 12/18/19 25 Blood pressure diastolic 60 mm Hg 025 Heart Rate 77 /min 12/17/2024 Height 56 in in 12/17/2024 Weight 179 lbs 12/17/2024 BMI 40.13 kg/m2 12/17/2024 Encounters Encounter Location Date Provider Diagnosis Carmelo Ching III, MD [address] [address] DR GOMEZ [address] [place] [id number] 12/17/2024 Carmelo Ching Hematuria R31.9 Assessments Encounter Date Diagnosis (ICD Code) Assessment Notes Treatment Notes Treatment Clinical Notes 12/17/2024 Hematuria (ICD-10 - R31.9) Plan Of Treatment Medication Medication Name Sig Start Date Stop Date Notes EpiPen 2-Ramón 0.3 MG/0.3ML as directed Injection as needed for allergic reaction 05/23/2024 Nebulizer - Use every 4 hours 07/05/2024 Nebulizer Mask Adult - Use every 4 hours 07/05/2024 Nebulizer Cup/Tubing - Use every 4 hours 07/05/2024 Albuterol Sulfate (2.5 MG/3ML) 0.083% 3 mL as needed Inhalation every 6 hrs 07/05/2024 J45.909 Active Asthma Fexofenadine HCl 60 MG 1 tablet Orally O nce a day 11/16/2023 Melatonin 5 MG 1 tablet in the evening Orally Once a day Ventolin HFA 108 (90 Base) MCG/ACT Inhalation Pantoprazole Sodium 40 MG Oral Ferrous Sulfate 325 (65 Fe) MG Oral Meclizine HCl 25 MG 1 tablet Orally ever y 12 hrs 10/17/2023 Venlafaxine HCl 50 MG 1 tablet with food Orally Once a day 09/23/2023 Pending Test Test Name Order Date Urinalysis 12/17/2024 Urine Culture 12/17/2024 Next Appt Details Follow Up: As Scheduled, [place] son: OV Provider Name:Carmelo Ching, 01/02/2025 04:00:00 PM, [address] [address] DR [facility] [place], [place], [address], Progress Notes * Natasha SCHUSTERDOB:1960 (64 yo F)Acc No.[id number]:12/17/2024 Progress Notes Patient:?KATY Natasha Provider:?Carmelo Ching MD :1960???Age:64 Y???Sex:Female D ate:12/17/2024 Address:[address] [place], [place] [id number] Subjective: * Chief Complaints: * ???1. Follow-up. 2. Possible UTI. 3. Lower back pain x 3 days. 4. Urinary frequency x 3 days. 5. Front lower quadrant pain x 3 days. * HPI: ???COVID-19 Screening:?Questions?Have you had any new onset fever, chills, cough, congestion, sore throat, shortness of breath, muscle aches??No * ROS:?General/Constitutional:?pain?only normal aches and pains.?Chills?denies.?Fatigue?admits.?Fever?denies.?ENT:?Decreased hearing?denies.?Respiratory:?Cough?denies.?Cardiovascular:?Chest pain with exertion?denies.?Dyspnea on exertion?denies.?Shortness of breath?denies.?Gastrointestinal:?Constipation?denies.?Decreased appetite?denies.?Diarrhea?denies.?Heartburn?denies.?Nausea?denies.?Rectal bleeding?denies.?Vomiting?denies.?Hematology:?bruising?denies.?petechiae?denies.?Swollen glands?none have been noted.?Genitourinary:?Frequent urination?denies.?Musculoskeletal:?Muscle aches?denies.?Painful joints?denies.?Sciatica?denies.?Weakness?denies.?Skin:?Itching?denies.?Rash?denies.?Skin lesion(s)?denies.?Neurologic:?Difficulty speaking?denies.?Dizziness?denies.?Headache?denies.?Low back pain?denies.?Psychiatric:?Depressed mood?denies.? * Medical History:?Non-seasona l allergic rhinitis due to other allergic trigger, Intermittent asthma, unspecified asthma severity, unspecified whether complicated, Hyperlipidemia, unspecified hyperlipidemia type, Obesity due to excess calories with serious comorbidity, unspecified classification, ANNA1 antibody positive, Iron deficiency anemia, unspecified, Pain in left knee, Ureterolithiasis, Abdominal pain, dizziness and syncope. * Surgical History:?Apendix re moded , Tubal ligation , Kidney stone removed , No history . * Hospitalization/Major Diagno stic Procedure:?No history . * Family History:?Father: dece ased, colon cancer, diagnosed with Cancer.?Mother: , Unknown.?Children: alive.?Daughter(s): alive.? She is not aware of any inherited cancer family syndromes. She is not aware of any family history of mental illness, addiction, or substance use disorder. * Social History:?Tobacco Use:?Tobacco Use/Smoking?Patient is a?former smoker ?How long has it been since you last smoked??> 10 years ?Additional Findings: Tobacco Non-User?Ex-cigarette smoker * Medications:?Taking Venlafax ine HCl 50 MG Tablet 1 tablet with food Orally Once a day , Taking Fexofenadine HCl 60 MG Tablet 1 tablet Orally Once a day , Taking Melatonin 5 MG Tablet 1 tablet in the evening Orally Once a day , Taking Ventolin HFA 108 (90 Base) MCG/ACT Aerosol Solution Inhalation , Taking Pantoprazole Sodium 40 MG Tablet Delayed Release Oral , Taking Ferrous Sulfate 325 (65 Fe) MG Tablet Delayed Release Oral , Taking EpiPen 2-Ramón 0.3 MG/0.3ML Solution Auto-injector as directed Injection as needed for allergic reaction , Taking Nebulizer - Miscellaneous Use every 4 hours As needed for asthma, Taking Nebulizer Mask Adult - Miscellaneous Use every 4 hours As needed for asthma, Taking Nebulizer Cup/Tubing - Device Use every 4 hours As needed for Asthma, Taking Albuterol Sulfate (2.5 MG/3ML) 0.083% Nebulization Solution 3 mL as needed Inhalation every 6 hrs As needed for Asthma, Notes to Pharmacist: J45.909 Active Asthma, Taking Meclizine HCl 25 MG Tablet 1 tablet Orally every 12 hrs As needed, Medication List reviewed and reconciled with the patient * Allergies:?Contrast Allergy PreMed Pack, Dog Dander, Iodine. Objective: * Vitals:?Ht: 56 in, Wt: 179, BMI:40.13, BP: 141/60, HR: 77, Temp: 97.9, Ht-cm: 142.24, Wt-k.19. * ???Past Orders: Lab:Complete Blood Count Aut o Diff * Collection Date 12/14/2024 11/07/2024 10/24/2024 Collection Time 11:30 AM 09:19 AM 02:22 PM Order Date 12/14/2024 11/07/2024 10/24/2024 White Blood Count 5.7 (Ref Range: 4.8-10.8 X10*3/uL) 6.6 (Ref Range: 4.8-10.8 X10*3/uL) 7.3 (Ref Range: 4.8-10.8 X10*3/uL) Red Blood Count 4.09?L (Ref Range: 4.20-5.50 X10*6/uL) 4.31 (Ref Range: 4.20-5.50 X10*6/uL) 4.32 (Ref Range: 4.20-5.50 X10*6/uL) Hemoglobin 12.2 (Ref Range: 12.0-16.0 g/dl) 13.0 (Ref Range: 12.0-16.0 g/dl) 13.4 (Ref Range: 12.0-16.0 g/dl) Hematocrit 39.2 (Ref Range: 37.0-47.0 %) 41.1 (Ref Range: 37.0-47.0 %) 41.8 (Ref Range: 37.0-47.0 %) Mean Corpuscular Volume 95.8 (Ref Range: 80.0-98.0 fL) 95.4 (Ref Range: 80.0-98.0 fL) 96.8 (Ref Range: 80.0-98.0 fL) Mean Corpuscular Hemoglobin 29.8 (Ref Range: 27.0-33.0 pg) 30.2 (Ref Range: 27.0-33.0 pg) 31.0 (Ref Range: 27.0-33.0 pg) Mean Corpuscular HGB Conc 31.1 (Ref Range: 31.0-35.0 g/dl) 31.6 (Ref Range: 31.0-35.0 g/dl) 32.1 (Ref Range: 31.0-35.0 g/dl) Red Cell Distribution Width 13.6 (Ref Range: 11.0-16.0 %) 13.0 (Ref Range: 11.0-16.0 %) 13.2 (Ref Range: 11.0-16.0 %) Platelet Count 309 (Ref Range: 160-400 X10*3/uL) 290 (Ref Range: 160-400 X10*3/uL) 274 (Ref Range: 160-400 X10*3/uL) Mean Platelet Volume 10.2 (Ref Range: 9.4-12.3 fL) 9.7 (Ref Range: 9.4-12.3 fL) 9.7 (Ref Range: 9.4-12.3 fL) Neutrophils Percent Auto 61.1 (Ref Range: 45-73 %) 66.4 (Ref Range: 45-73 %) 68.7 (Ref Range: 45-73 %) Imm Gran Pct Auto 0.2 (Ref Range: 0.0-0.4 %) 0.3 (Ref Range: 0.0-0.4 %) 0.3 (Ref Range: 0.0-0.4 %) Lymphocytes Percent Auto 25.6 (Ref Range: 20-40 %) 21.1 (Ref Range: 20-40 %) 20.8 (Ref Range: 20-40 %) Monocytes Percent Auto 7.1 (Ref Range: 2-11 %) 7.3 (Ref Range: 2-11 %) 6.4 (Ref Range: 2-11 %) Eosinophils Percent Auto 5.1?H (Ref Range: 0-4 %) 4.3?H (Ref Range: 0-4 %) 3.3 (Ref Range: 0-4 %) Basophils Percent Auto 0.9 (Ref Range: 0-2 %) 0.6 (Ref Range: 0-2 %) 0.5 (Ref Range: 0-2 %) NRBC Pct Auto 0.0 (Ref Range: 0.0-0.2 /100WBC) 0.0 (Ref Range: 0.0-0.2 /100WBC) 0.0 (Ref Range: 0.0-0.2 /100WBC) Neutrophils Absolute Auto 3.5 (Ref Range: 2.0-8.3 x10*3/uL) 4.4 (Ref Range: 2.0-8.3 x10*3/uL) 5.0 (Ref Range: 2.0-8.3 x10*3/uL) Imm Gran Abs Auto 0.01 (Ref Range: 0.00-0.03 X10*3/uL) 0.02 (Ref Range: 0.00-0.03 X10*3/uL) 0.02 (Ref Range: 0.00-0.03 X10*3/uL) Lymphocytes Absolute Auto 1.5 (Ref Range: 1.2-4.9 X10*3/uL) 1.4 (Ref Range: 1.2-4.9 X10*3/uL) 1.5 (Ref Range: 1.2-4.9 X10*3/uL) Monocytes Absolute Auto 0.4 (Ref Range: 0.1-1.2 X10*3/uL) 0.5 (Ref Range: 0.1-1.2 X10*3/uL) 0.5 (Ref Range: 0.1-1.2 X10*3/uL) Eosinophils Absolute Auto 0.3 (Ref Range: 0.0-0.4 X10*3/uL) 0.3 (Ref Range: 0.0-0.4 X10*3/uL) 0.2 (Ref Range: 0.0-0.4 X10*3/uL) Basophils Absolute Auto 0.1 (Ref Range: 0.0-0.2 X10*3/uL) 0.0 (Ref Range: 0.0-0.2 X10*3/uL) 0.0 (Ref Range: 0.0-0.2 X10*3/uL) NRBC Abs Auto 0.000 (Ref Range: 0.0-0.012 X10*3/uL) 0.000 (Ref Range: 0.0-0.012 X10*3/uL) 0.000 (Ref Range: 0.0-0.012 X10*3/uL) * Lab:RETIC * Collection Date 12/14/2024 01/25/2023 12/30/2022 Collection Time 11:30 AM 01:57 PM 12:09 PM Order Date 12/14/2024 01/25/2023 12/30/2022 Reticulocytes Absolute 0.085 (Ref Range: 0.026-0.095 X10*6/uL) 0.070 (Ref Range: 0.026-0.095 X10*6/uL) 0.057 (Ref Range: 0.026-0.095 X10*6/uL) Immature Retic Fraction 14.6 (Ref Range: 3.0-15.9 %) 30.2?H (Ref Range: 3.0-15.9 %) 31.2?H (Ref Range: 3.0-15.9 %) Retic HGB Equivalent 31.7 (Ref Range: 30.0-35.0 pg) 24.7?L (Ref Range: 30.0-35.0 pg) 21.6?L (Ref Range: 30.0-35.0 pg) Reticulocyte Percent 2.1?H (Ref Range: 0.5-1.8 %) 1.7 (Ref Range: 0.5-1.8 %) 1.5 (Ref Range: 0.5-1.8 %) * Lab:Ferritin * Collection Date 12/14/2024 10/24/2024 05/16/2024 Collection Time 11:30 AM 02:22 PM 09:11 AM Order Date 12/14/2024 10/24/2024 05/16/2024 Ferritin 212 (Ref Range: 10-250 ng/mL) 320?H (Ref Range: 10-250 ng/mL) 379?H (Ref Range: 10-250 ng/mL) * Lab:Comprehensive Met. Panel * Collection Date 11/07/2024 10/24/2024 03/06/2024 Collection Time 09:19 AM 02:22 PM 02:13 PM Order Date 11/07/2024 10/24/2024 03/06/2024 Sodium 141 (Ref Range: 135-145 mmol/L) 138 (Ref Range: 135-145 mmol/L) 135 (Ref Range: 135-145 mmol/L) Bilirubin Total 0.6 (Ref Range: 0.0-1.0 mg/dL) 0.4 (Ref Range: 0.0-1.0 mg/dL) 0.7 (Ref Range: 0.0-1.0 mg/dL) Aspartate Amino Transferase 26 (Ref Range: 5-31 U/L) 21 (Ref Range: 5-31 U/L) 15 (Ref Range: 5-31 U/L) Alanine Aminotransferase 14 (Ref Range: 0-31 U/L) 15 (Ref Range: 0-31 U/L) 10 (Ref Range: 0-31 U/L) Total Protein 8.6?H (Ref Range: 6.5-8.0 g/dL) 8.7?H (Ref Range: 6.5-8.0 g/dL) 8.2?H (Ref Range: 6.5-8.0 g/dL) Albumin Level 4.1 (Ref Range: 3.5-5.0 g/dL) 4.1 (Ref Range: 3.5-5.0 g/dL) 3.9 (Ref Range: 3.5-5.0 g/dL) Alkaline Phosphatase 86 (Ref Range: 39-117 U/L) 92 (Ref Range: 39-117 U/L) 80 (Ref Range: 39-117 U/L) Potassium 4.1 (Ref Range: 3.3-5.1 mmol/L) 5.3?H (Ref Range: 3.3-5.1 mmol/L) 4.7 (Ref Range: 3.3-5.1 mmol/L) Chloride 108 (Ref Range: 96-108 mmol/L) 106 (Ref Range: 96-108 mmol/L) 105 (Ref Range: 96-108 mmol/L) Carbon Dioxide 26 (Ref Range: 22-29 mmol/L) 28 (Ref Range: 22-29 mmol/L) 24 (Ref Range: 22-29 mmol/L) Anion Gap 11?L (Ref Range: 12-20) 9?L (Ref Range: 12-20) 11?L (Ref Range: 12-20) Blood Urea Nitrogen 15 (Ref Range: 9-16 mg/dL) 18?H (Ref Range: 9-16 mg/dL) 20?H (Ref Range: 9-16 mg/dL) Creatinine 0.63 (Ref Range: 0.5-1.4 mg/dL) 0.71 (Ref Range: 0.5-1.4 mg/dL) 0.81 (Ref Range: 0.5-1.4 mg/dL) Estimated Glomerular Filt Rate > 60 > 60 > 60 Glucose Random 91 (Ref Range: 60-115 mg/dL) 89 (Ref Range: 60-115 mg/dL) 96 (Ref Range: 60-115 mg/dL) Calcium 9.6 (Ref Range: 8.4-10.2 mg/dL) 9.7 (Ref Range: 8.4-10.2 mg/dL) 9.6 (Ref Range: 8.4-10.2 mg/dL) Creatinine Clr Calc Pharmacy 83.6 74.1 NR ???Lab:IRON PROFILE (Order Date - 10/24/2024) (Collection Date & Time - 10/24/2024 02:22 PM)?ValueReference Range?Nmft6055-816 - mcg/dL ?Total Iron Binding Atowcgha367605-934 - mcg/dL?Percent Iron Tkkmgnqgnt9102-08 - %?Unsaturated Iron Dcrwtzg921- ug/dL * Examination: ???General Examination: ?GENERAL APPEARANCE:?pleasant, well nourished, well developed, in no acute distress, calm and relaxed.?HEAD:?atraumatic, normocephalic.?EYES:?eomi, perrla, anicteric, conjugate.?EARS:?normal.?NOSE:?septum intact.?ORAL CAVITY:?normal, unremarkable.?NECK/THYROID:?no jugular venous distention, no carotid bruit, thyroid normal.?LYMPH NODES:?no enlarged lymph nodes,spleen normal.?SKIN:?no suspicious lesions, anicteric.?HEART:?no clicks, gallops, murmurs, or rubs, regular rhythm, S1, S2 normal, no s3, or vascular bruits.?LUNGS:?clear to auscultation .?BREASTS:??no masses palpable bilaterally.?ABDOMEN:?bowel sounds normal, no ascites, no organomegaly, no mass.?RECTAL EXAM:?not examined.?MUSCULOSKELETAL:?extremities unremarkable, no clubbing, cyanosis or edema.?PERIPHERAL PULSES:?normal.?NEUROLOGIC:?alert and oriented, cranial nerves 2-12 grossly intact, deep tendon reflexes 2+ symmetrical, motor strength normal upper and lower extremities, sensory exam intact.?PSYCH:?alert, oriented.? Assessment: * Assessment: 1.?Hematuria - R31.9 (Primar y)??? Plan: * Treatment: ? Value Reference Range ?SG 1.025 1.005 - 1.025 * ?pH 5.0 5.0 - 9.0 * ?FRIDA 120 Negative - * ?NIT Negative Negative - * ?PRO 15 Negative - Trac e * ?GLU Negative Negative - * ?KET 5 Negative - * ?UBG 0.2 0.1 - 1.8 * ?DESHAWN 1 0.2 - 1.3 * ?BLD Positive Negative - * ?Menstrating No 2.?Others? Continue Meclizine HCl Tablet, 25 MG, 1 tablet, Orally, every 12 hrs As needed;?Continue Venlafaxine HCl Tablet, 50 MG, 1 tablet with food, Orally, Once a day;?Continue Fexofenadine HCl Tablet, 60 MG, 1 tablet, Orally, Once a day;?Continue Melatonin Tablet, 5 MG, 1 tablet in the evening, Orally, Once a day;?Continue Ventolin HFA Aerosol Solution, 108 (90 Base) MCG/ACT, Inhalati on;?Continue Pantoprazole Sodium Tablet Delayed Release, 40 MG, Oral;?Continue Ferrous Sulfate Tablet Delayed Release, 325 (65 Fe) MG, Oral;?Continue EpiPen 2- Ramón Solution Auto-injector, 0.3 MG/0.3ML, as directed, Injection, as needed for allergic reaction;?Continue Nebulizer Miscellaneous, -, Use every 4 hours As needed for asthma;?Continue Nebulizer Mask Adult Miscellaneous, -, Use every 4 hours As needed for asthma;?Continue Nebulizer Cup/Tubing Device, -, Use every 4 hours As needed for Asthma;?Continue Albuterol Sulfate Nebulization Solution, (2.5 MG/3ML) 0.083%, 3 mL as needed, Inhalation, every 6 hrs As needed for Asthma, Notes to Pharmacist: J45.909 Active Asthma.?? * Preventive Medicine:? ??Counseling:?Care goal follow-up plan:?Counseling for abnormal BMI given?Yes ?Above Normal BMI Follow-up?Dietary management education, guidance, and counseling, Dietary needs education, Exercise promotion: strength training, Exercise promotion: stretching, Feeding regime, Giving encouragement to exercise, Lifestyle education regarding diet, Nutrition / feeding management, Nutrition therapy, Prescribed activity/exercise education, Prescribed diet education, Prescribed dietary intake, Special diet education, Weight monitoring , Intervention, Order not done: Medical or Other reason not done * Follow Up:?As Scheduled ([place] son: OV) * Images: * The named appointment provid er may or may not be the originator of this progress note, and it is not deemed complete until electronically signed by the appointment provider. Sign off status: Pending * Provider:?Carmelo Ching MD Date:?11/19 Generated for Niloi daniel/Lisy/eTransmitting on:?12/17/2024 06:11 PM EDT History and Physical Notes * HPI (History of Present Illness) Category Sub-Category Detail Notes COVID-19 Screening Questions Have you had any new onset fever, chills, cough, congestion, sore throat, shortness of breath, muscle aches?: No Examination Category Sub-Category Detail Notes General Examination GENERAL APPEARANCE: pleasant , well nourished, well developed, in no acute distress, calm and relaxed HEAD: atraumatic, normocep halic EYES: eomi, perrla, anicte sourav, conjugate EARS: normal NOSE: septum intact NECK/THYROID: no jugular venous di stention, no carotid bruit, thyroid normal HEART: no clicks, gallops, murmurs, or rubs, regular rhythm, S1, S2 normal, no s3, or vascular bruits LUNGS: clear to auscultatio n ABDOMEN: bowel sounds normal, no ascites, no organomegaly, no mass NEUROLOGIC: alert and oriented, cranial nerves 2-12 grossly intact, deep tendon reflexes 2+ symmetrical, motor strength normal upper and lower extremities, sensory exam intact SKIN: no suspicious lesion s, anicteric PERIPHERAL PULSES: normal BREASTS: no masses palpable b ilaterally MUSCULOSKELETAL: extremities unremark able, no clubbing, cyanosis or edema LYMPH NODES: no enlarged lymph no matt,spleen normal RECTAL EXAM: not examined PSYCH: alert, oriented ORAL CAVITY: normal, unremarkable
--- OUTSIDE RECORDS SUMMARY | 2024-12-17 18:11 | XMS_ITS ---
Author Organization Carmelo Ching III, MD Address [address] [place] [address] [place] [address] Care Team Providers Care Calculus Professor Name Role Phone Carmelo Ching Primary Care Provider [phone] REASON FOR VISIT Lab order Social History Sex Assigned At : Social History Observation Description Sex Assigned At Female Encounters Encounter Location Date Provider Diagnosis Carmelo Ching III, MD [address] [place] [address] [place] [address] 12/03/2024 Carmelo Ching Elevated total prote in R77.8 ; Iron deficiency anemia due to chronic blood loss D50.0 and Elevated sedimentation rate R70.0 Assessments Encounter Date Diagnosis (ICD Code) Assessment Notes Treat ment Notes Treatment Clinical Notes 12/03/2024 Elevated total protein (ICD-10 - R77.8) 12/03/2024 Iron deficiency anemia due to chronic blood loss (ICD-10 - D50.0) 12/03/2024 Elevated sedimentation rate (ICD-10 - R70.0) Plan Of Treatment Pending Test Test Name Order Date Protein Electrophoresis, Serum Immunofixation Pnl, Serum 12/03/2024 Next Appt Details Provider Name:Carmelo Ching, 01/02/2025 04:00:00 PM, [address] [place] [address] [place], [address], Progress Notes * Natasha SCHUSTERDOB:1960 (64 yo F)Acc No.[id number]:12/03/2024 Patient:Natasha CATHERINE :1960???Age:64 Y???Sex:Female Address:[facility] [place], [address] Subjective: * Chief Complaints: * ???Lab order * Medical History:? * Surgical History:? * Hospitalization/Major Diagno stic Procedure:? * Medications:? Objective: * Vitals:? * Physical Examination:? Assessment: * Assessment: 1.?Elevated total protein - R77.8???2.?Iron deficiency anemia due to chronic blood loss - D50.0???3.?Elevated sedimentation rate - R70.0??? Plan: * Treatment: 2.?Iron deficiency anemia du e to chronic blood loss?LAB: Protein Electrophoresis, Serum ?LAB: Immunofixation Pnl, Serum 3.?Elevated sedimentation ra te?LAB: Protein Electrophoresis, Serum ?LAB: Immunofixation Pnl, Serum * Procedure Codes:? * true * Date:? Generated for Sarahi sanchez/Lisy/eTpatriasmitting on:?12/17/2024 06:11 PM EDT
--- OUTSIDE RECORDS SUMMARY | 2024-12-17 18:12 | XMS_ITS ---
Author Organization [facility] Address [address] [place] [address] Care Team Providers Care Material Combiner Name Role Phone Carmelo Ching MD Primary Care Provider Unavailab yajaira Leonard Jr, Selwyn Hernandez REASON FOR VISIT Pt no showed Encounters Encounter Location Date Provider Diagnosis [facility] [address] [place] [phone] 08/15/2024 Selwyn Leonard Jr Plan Of Treatment Next Appt Details Provider Name:Selwyn stewart Jr, 02/07/2025 03:55:00 PM, [address], [address], [place], [address], Progress Notes * ZAIDALORIN PRICEANGELDOB:1960 (63 yo F)Acc No.[id number]:08/15/2024 Patient:?LI BURNS :1960???Age:63 Y???Sex:Female Address:[address] [place] [id number] * true * Date:? Generated for Sarahi sanchez/Lisy/eTransmitting on:?12/17/2024 06:12 PM EDT
--- OUTSIDE RECORDS SUMMARY | 2024-12-17 18:12 | XMS_ITS | Patient Health Record ---
Author Organization [facility] Address [address] [place] [address] Care Team Providers Care Director Of Academic Support Name Role Phone Humza MURILLO, Carmelo Primary Care Provider Unavailab Selwyn Gutierrez Jr Unavailable Allergies Allergen (clinical drug ingredient) Drug/Non Drug Allergy documented on EMR Reaction Allergy Type Onset Date Status Iodine Unknown Drug Allergy Active iv contrast (uncoded) Unknown Allergy Active Reason For Referral Referring Provider First Name Carmelo Referring Provider Last Name Humza Referring Provider Speciality Oncology Referred Organization [facility] Referred Provider Selwyn Leonard Jr Referred Address [address] [place] [address],[address],[place], [place],[address], Referred Provider Specialty Gastroentero logy General Notes Socorro Harden 025 11:36:28 AM EST > requested a [facility] referral from Dr. Ching's office for visit with on [phone] Referral Priority Routine Medications Medication SIG (Take, Route, Frequency, Duration) Notes Start Date End Date Status Pantoprazole Sodium 40 MG Oral for 30 Active Lisinopril 30 MG Oral for 30 A ctive MiraLax (colon prep) 17 GM/SCOOP mixed with Gatorade or Crystal Light Orally begin at 5:00 p.m. the day before the procedure for 1 day 01/06/2023 Active Ferrous Sulfate 325 (65 Fe) MG Oral for 30 Active Melatonin Active Social History Tobacco Use: Social History Observation Description Date Details (start date - stop date) Never Smoker NA - NA Tobacco Use/Smoking Question Answer Notes Patient is a nonsmoker Alcohol Screen Question Answer Notes Did you [...] Problem Status W/U Status Risk Notes Problem Iron deficiency anemia (89872648) Iron deficiency anemia (D50.9) Active confirmed Problem 32921962 Hiatal hernia (K44.9) Active confirmed Problem 12082496 Heme positive stool (R19.5) Active confirmed Problem 85890155 Iron deficiency anemia, unspecified iron deficiency anemia type (D50.9) Active confirmed Encounters Encounter Location Date Provider Diagnosis [facility] [address] [place] [address] 01/19/2024 Selwyn Leonard Jr [facility] [address] [place] [address] 05/14/2024 Selwyn Leonard Jr [facility] [address] [place] [address] 08/15/2024 Selwyn Leonard Jr [facility] [address] [place] [address] 11/07/2024 Selwyn Leonard Jr Plan Of Treatment Future Test Test Name Order Date UPPER GI ENDOSCOPY 01/06/2023 COLONOSCOPY 01/06/2023 Next Appt Details Provider Name:Selwyn stewart Jr, 02/07/2025 03:55:00 PM, [address], [address], [place], [address], Insurance Providers Payer Name Payer Address Payer Phone Subscriber Number Group Number Insured Name Patient Relationship to Insured Coverage Start Date Coverage End Date [place] [address] [place] [id number] LI BURNS Self - patient is the insured Medical (General) History Medical History History ICD Code hypertension asthma kidney stones Anemia Surgical History Surgery Date(Month/Year) appendectomy kidney stone removed tubal ligation
--- OUTSIDE RECORDS SUMMARY | 2024-12-17 18:12 | XMS_ITS ---
Author Organization [facility] Address [address] [place] [address] Care Team Providers Care Ham Curer Name Role Phone Carmelo Ching MD Primary Care Provider Unavailab yajaira Leonard Jr, Selwyn Unavailable REASON FOR VISIT Patient presents today for a SCREENING COLON Encounters Encounter Location Date Provider Diagnosis [facility] [address] [place] [address] 11/07/2024 Selwyn Leonard Jr Plan Of Treatment Next Appt Details Provider Name:Selwyn stewatr Jr, 02/07/2025 03:55:00 PM, [address] [place] [address], [address], [place], [address], Progress Notes * ZAIDALI PRICEDOB:1960 (64 yo F)Acc No.[id number]:11/07/2024 Progress Notes Patient:?LI BURNS Provider:?Selwyn Leonard MD :1960???Age:64 Y???Sex:Female D ate:11/07/2024 Address:[address] [place], [place] [phone] Pcp:Carmelo Ching MD Subjective: * Chief Complaints: * ???1. Patient presents today for a SCREENING COLON. * Medical History:? Objective: * Vitals:? Assessment: Plan: * Treatment: * * The named appointment provid er may or may not be the originator of this progress note, and it is not deemed complete until electronically signed by the appointment provider. Sign off status: Pending * Provider:?Selwyn Leonard MD Date:?0 11/07/2024 Generated for Sarahi sanchez/Lisy/Rosalina on:?12/17/2024 06:12 PM EDT
--- OUTSIDE RECORDS SUMMARY | 2024-12-17 18:12 | XMS_ITS ---
Author Organization Carmelo Ching III, MD Address [address] [place] [address] [place] [address] Care Team Providers Care Interventionist Name Role Phone Carmelo Ching Primary Care Provider REASON FOR VISIT refill request Medications Medication SIG (Take, Route, Fr equency, Duration) Notes Start Date End Date Status Meclizine HCl 25 MG 1 tablet Orally every 12 hrs for 30 days As needed 10/17/2023 Active Social History Sex Assigned At : Social History Observation Description Sex Assigned At Female Encounters Encounter Location Date Provider Diagnosis Carmelo Ching III, MD [address] [place] [address] [address] [facility] [place] [address] 11/26/2024 Carmelo Ching Plan Of Treatment Medication Medication Name Sig Start Date Stop Date Notes Meclizine HCl 25 MG 1 tablet Orally ever y 12 hrs for 30 days 10/17/2023 Next Appt Details Provider Name:Carmelo Ching, 01/02/2025 04:00:00 PM, [address] [place] [address] [address] [place] [facility], [address], Progress Notes * MARIELYMargaritaalirezaDOB:1960 (64 yo F)Acc No.[id number]:11/26/2024 Patient:?Natasha BURNS :1960???Age:64 Y???Sex:Female Address:[facility] [address], [place], [address] * Refills? Refill Meclizine HCl Tablet, 25 MG, Orally, 60 Tablet, 1 tablet, every 12 hrs, 30 days, Refills=11 * true * Date:? Generated for Sarahi sanchez/Lisy/Rosalina on:?12/17/2024 06:11 PM EDT
--- OUTSIDE RECORDS SUMMARY | 2024-12-17 18:13 | XMS_ITS ---
Author Organization [facility] Address [address] [place] [address] Care Team Providers Care Forming Machine Upkeep Mechanic Name Role Phone Carmelo Ching MD Primary Care Provider Unavailab yajaira Leonard Jr, Selwyn Hernandez REASON FOR VISIT R/S OV Encounters Encounter Location Date Provider Diagnosis [facility] [address] [place] [address] 11/07/2024 Selwyn Leonard Jr Plan Of Treatment Next Appt Details Provider Name:Selwyn stewart Jr, 02/07/2025 03:55:00 PM, [address], [address], [place], [address], Progress Notes * KATYLORINANGELDOB:1960 (64 yo F)Acc No.[id number]:11/07/2024 Patient:?LI BURNS :1960???Age:64 Y???Sex:Female Address:[address] [place] [address] * true * Date:? Generated for Sarahi sanchez/Lisy/eTransmitting on:?12/17/2024 06:12 PM EDT
== END 2024-12-17 17:02 | disposition home or self-care (01) ==
LOC: HO.LNP 17:01
PROVIDERS: Visit Provider Internal Medicine Medical Oncology
DX: R31.9 Hematuria, unspecified (principal)
CPT/HCPCS: 81001; 87086

== ENCOUNTER 2025-02-20 10:15 | Outpatient (REF) | payer MEDICAID, SELFPAY ==
[2025-02-20 10:45] LABS: Hemoglobin 10.6 g/dl (12.0-16.0); Mean Corpuscular HGB Conc 31.2 g/dl (31.0-35.0); Mean Corpuscular Hemoglobin 29.6 pg (27.0-33.0); Mean Platelet Volume 9.2 fL (9.4-12.3); Platelet Count 328 X10*3/uL (160-400); Red Blood Count 3.58 X10*6/uL (4.20-5.50); Red Cell Distribution Width 14.4 % (11.0-16.0); White Blood Count 6.5 X10*3/uL (4.8-10.8)
--- OUTSIDE RECORDS SUMMARY | 2025-02-20 10:55 | XMS_ITS | Data Portability ---
Author Organization [place] [facility], Allergy Address [address] [address] Assessment No assessment recorded. Plan of Treatment [...] Organization Details Recorded Time Bleeding from nose 751515332 Active 2022 Epistaxis; Note: Date Diagnosed: 08/04/2023 10:17 AM (R04.0) Not Available [facility] 4 03:25:05 Dizziness and giddiness 983543887 Active 2022 Dizziness and giddiness; Note: Date Diagnosed: 08/04/2023 10:34 AM (R42) Not Available [facility] 4 03:25:05 Headache 03004796 Active 2022 Headache, unspecifie d; Note: Date Diagnosed: 08/04/2023 10:34 AM (R51.9) Not Available [facility] 4 03:25:05 Essential hypertens ion 99862268 Active 2022 Essential (primary) hypertensi on; Note: Date Diagnosed: 08/04/2023 10:41 AM (I10) Not Available [facility] 4 03:25:04 Anterior epistaxis 928282295 Active 2023 JUAN ANTONIO LEIGH MD [address] [place] [address], [place], [address] , [facility] 4 09:53:04 Problem Notes None recorded. Procedures Surgical History Date Name Laterality Status Provider Name and Address Organization Details Recorded Time 4 Epistaxis Simple Nasal Cautery Right completed JUAN ANTONIO LEIGH MD [address],[place] [address], [place], [address], [facility] 02/02/2024 09:50:16 Imaging Results None recorded. Procedure Notes None recorded. Medical Equipment None Reported. Allergies Allergen ID Allergen Name Allergen Category Reaction Reaction Severity Criticality Documentation Date Start Date Code Code System Note Provider Name and Address Organization Details Recorded Time 771760 Iodinated contrast media (substanc e) medicatio n other Not available Not available 01/31/2024 14320 2003 SNOMED React ion: Unkno wn; Not Available [facility] 4 01:22:27 Medications Name Sig Start Date Stop Date Status Note LastModified by Organization Details LastModified Time melatonin 5 mg tablet active Not Available Not Available Not Available vitamin d3 1,000 unit softg active Not Available Not Available Not Available fluconazo le 100 mg tablet 02/01 completed Not Available Not Available Not Available cetirizin e 10 mg tablet 02/01 completed Medicatio n ID: [id number] Br and Name: cetirizin e Send Method: E-Prescri bed Subs Allowed: subs OK Medica tionGener icName: cetirizin e Medicat ion ID: [id number] Br and Name: cetirizin e Send Method: [...] tablet,de layed release active Medicatio n ID: [id number] Br and Name: pantopraz ole Send Method: [...] 30 mg tablet active Medicatio n ID: [id number] Br and Name: lisinopri l Send Method: E-Prescri bed Subs Allowed: subs OK Medica tionGener icName: lisinopri l Not Available Not Available Not Available ferrous sulfate 325 mg (65 mg iron) tablet,de layed release active Not Available Not Available Not Available Ventolin HFA 90 mcg/actua tion aerosol inhaler active Medicatio n ID: [id number] Br and Name: Ventolin HFA Send Method: E-Prescri bed Subs Allowed: subs OK Medica tionGener icName: Ventolin HFA Not Available Not Available Not Available cholecalc iferol (vitamin D3) 25 mcg (1,000 unit) capsule active Not Available Not Available Not Available mirtazapi ne 7.5 mg tablet active Not Available Not Available Not Available melatonin 5 mg tablet active Medicatio n ID: [id number] Br and Name: MELATONIN 5 MG TABLET Se nd Method: E-Prescri bed Subs Allowed: subs OK Medica tionGener icName: MELATONIN 5 MG TABLET Not Available Not Available Not Available Vitals Date Recorded Body weight Provider Name an d Address Organization Details Last Updated DateTime 02/02/2024 04107.85 g Bina Roche [place] - [facility] 02/02/2024 09:25:14 Social History None recorded. Functional [...] Note 467 JUAN ANTONIO LEIGH MD [facility] [address] [place] [address] 02/02/2024 09:16:27 02/02/2024 09:55:49 Anterior epistaxis 109021131 R04.0 Most recent nosebleed was about a month ago. There was a small vessel of the right anterior septum which I cauterized . I did child and family counselor her that I cannot be sure that this is the vessel that has been bleeding. Had some imaging at [facility] which I requested but per their report was normal. We had a detailed discussion on nasal humidifica tion with humidifier , saline sprays, saline jelly at night, applied to the outer nares. Using pressure and Afrin as needed for a nosebleed was discussed. Essential hypertension 37589357 I10 Health Concerns Section Related Observation LastModified by Organization Detai ls LastModified Time None Recorded Concern Status LastModified by Organization Details LastModified Time None Recorded Advance Directives Directive None Recorded Payers Insurance Date Sequence Insurance Name Policy Number Policy Smith Covered Member ID Smith Member ID Guarantor Name 02/02/2024 1 [place] [facility] Natasha Schuster [id number] Natasha Schuster Notes Date Note Type Note Provider Name and Address Organization Details Recorded Time 02/02/2024 text/html 63 yo F presents with recurrent epistaxis. JUAN ANTONIO LEIGH MD [address] [place] [address], [place], [address], [facility] 02/02/2024 09:57:05 OBGyn Episode No OBEpisode recorded.
[2025-02-20 14:11] LABS: Alanine Aminotransferase 12 U/L (0-31); Albumin Level 3.9 g/dL (3.5-5.0); Alkaline Phosphatase 76 U/L (39-117); Aspartate Amino Transferase 19 U/L (5-31); Bilirubin Direct 0.1 mg/dL (0.0-0.5); Bilirubin Total 0.5 mg/dL (0.0-1.0); Lipase 22 U/L (8-78); Total Protein 7.8 g/dL (6.5-8.0)
[2025-02-20 14:31] LABS: TSH reflex Free T4 3.44 uIU/mL (0.32-4.0)
== END 2025-02-20 10:16 | disposition home or self-care (01) ==
LOC: HO.LAB 10:15
PROVIDERS: PCP Internal Medicine Medical Oncology; Visit Provider Internal Medicine Gastroenterology
DX: R10.9 Unspecified abdominal pain (principal)
CPT/HCPCS: 36415; 80076; 83690; 84443; 85027

== ENCOUNTER 2025-03-01 07:41 | Outpatient (REF) | payer MEDICAID, SELFPAY ==
--- NOTE | ~2025-03-01 | FL_ITS ---
EXAMINATION: XR FLUOROSCOPY UPPER GI WITH AIR CLINICAL INFORMATION: Abdominal pain, and deficiency anemia. COMPARISON: CT abdomen and pelvis 08/05/2023. TECHNIQUE: Routine upper GI air contrast study was performed in upright and lying position. FINDINGS: Following oral administration of thick barium and effervescent granules there is normal propagation bolus from the oral cavity through the pharynx, esophagus into stomach. There are small esophageal web along the anterior cervical esophagus without obstruction. There is no laryngeal penetration or aspiration. No barium retention seen in the piriform sinuses or valleculae. On placing patient in supine and prone lying there is a nonspecific radius old moderate size hiatal hernia and fedt-rw-sxmllsbr gastroesophageal reflux. The mucosal pattern of stomach, duodenal bulb and the sweep is normal FLUOROSCOPY TIME: 1 minute 23 seconds. DOSE AREA PRODUCT: 36.33 uGy-m2 (microgray-meter squared) FL/FL upper GI w air IMPRESSION: Nonreducible moderate size hiatal hernia with gastroesophageal reflux. Electronically signed by: Efrem Kaufman MD 03/01/2025 09:24 AM EDT
--- OUTSIDE RECORDS SUMMARY | 2025-03-01 07:43 | XMS_ITS ---
Author Organization Carmelo Ching III, MD Address [address] [place] [address] [place] [address] Care Team Providers Care President Of The [place] Name Role Phone Carmelo Ching Primary Care Provider Reason For Referral Reason Consult and Treat Diagnosis 1 Large hiatal hernia (K44.9) Referral Organization Carmelo Ching III, MD Referring Provider First Name Carmelo Referring Provider Last Name Humza Referring Provider Speciality Internal M edicine Ref[facility] Referred Provider Specialty General Surg [facility] General Notes Cathryn Alva 05/2025 11:07:00 AM >Referral FaxedAlistair Amber 02/25/2025 11:23:51 AM > Anna is calling from [facility] [place], she stated they do not treat Hiatal Hernias there. Stated patient could be referred to [facility] or [facility] Referral Priority Routine REASON FOR VISIT hiatal hernia- pain comes [...] has it been since you last smoked? Grea ter than 10 years Additional Findings: Tobacco non-user Ex-cigaret te smoker Problems Problem Type SNOMED Code ICD Code Onset Dates Problem Status W/U Status Risk Notes Problem 26878029 Epigastric pain (R10.13) Active confirmed We have [...] Date Provider Diagnosis Carmelo Ching III, MD [address] [place] [address] DR [place]ER, [place] [address] 02/22/2025 Carmelo Ching Epigastric pain R10. 13 [...] 02/25/2025 02/25/2025, Consult and Treat, General Surgery [facility] Appt Details Follow Up: 2 Weeks, Reason: ov Provider Name:Carmelo Ching, 04/03/2025 02:30:00 PM, [address] [place] [address] NAEL AKINS, [place], [address], Provider Name:Carmelo Ching, 01/03/2026 04:00:00 PM, [address] [place] [address] NAEL AKINS, [place], [address], Progress Notes * MARIELYMargaritaalirezaDOB:1960 (64 yo F)Acc No.[id number]:02/22/2025 Progress Notes Patient:?Natasha BURNS Provider:?Carmelo Ching MD :1960???Age:64 Y???Sex:Female D ate:02/22/2025 Address:[address] [place], [place] [address] Subjective: * Chief Complaints: * ???Hiatal hernia- pain comes and goes x 1 yearAbdominal painRecent endoscopyPositive ANAAsthmaAllergic rhinitisHyperlipidemiaArthritis left kneeMarked obesity * HPI: ???COVID-19 Screening:? She continues to have intermittent epigastric abdominal pain.? He recently saw Dr. Carmelo Chung, gastroenterology, and she says she had an upper endoscopy. She says she was so she has a hernia but we do not have the specific information.? We have requested the records.? The arthritis in her knee is stable and she is able to ambulate.? She is able to conduct her daily activities of daily life.? Her seasonal allergies are tolerable.Her blood work from December 14, 2024 was reviewed with her. ?Questions?Have you had any new onset fever, chills, cough, congestion, sore throat, shortness of breath, muscle aches??No * ROS:?General/Constitutional:?pain?Upper abdomen, and, sure, related to food.?Chills?denies.?Fatigue?admits.?Fever?denies.?ENT:?Decreased hearing?denies.?Respiratory:?Cough?denies.?Cardiovascular:?Chest pain with exertion?denies.?Dyspnea on exertion?denies.?Shortness of breath?denies.?Gastrointestinal:?Constipation?occasional.?Decreased appetite?denies.?Diarrhea?denies.?Heartburn?occasional.?Nausea?denies.?Rectal bleeding?denies.?Vomiting?denies.?Hematology:?bruising?denies.?petechiae?denies.?Swollen glands?none have been noted.?Genitourinary:?Frequent urination?denies.?Musculoskeletal:?Muscle aches?denies.?Painful joints?denies.?Sciatica?denies.?Weakness?denies.?Skin:?Itching?denies.?Rash?denies.?Skin lesion(s)?denies.?Neurologic:?Difficulty speaking?denies.?Dizziness?denies.?Headache?denies.?Low back pain?denies.?Psychiatric:?Depressed mood?denies.? * Medical History:? * Surgical History:?Kidney sto ne removed No history Appendectomy * Hospitalization/Major Diagno stic Procedure:?No history * Family History:?Father: dece ased, colon cancer, diagnosed with Cancer.?Mother: , Unknown.?Children: alive.?Daughter(s): alive.? She is not aware of any inherited cancer family syndromes. She is not aware of any family history of mental illness, addiction, or substance use disorder. * Social History:?Tobacco Use:?Tobacco Control (Standard)?Tobacco use:?Former smoker ?How long has it been since you last smoked??Greater than 10 years ?Additional Findings: Tobacco non-user?Ex-cigarette smoker * Medications:?TakingMeclizine HCl 25 MG Tablet 1 tablet Orally [...] As needed for Asthma, Notes to Pharmacist: [id number] Active AsthmaLevocetirizine Dihydrochloride 5 MG Tablet Oral [...] As needed for Asthma, Notes to Pharmacist: [id number] Active AsthmaTaking Levocetirizine Dihydrochloride 5 MG Tablet Oral Medication List reviewed and reconciled with the patient Objective: * Vitals:?Ht: 56 in, Wt: 180, BMI:40.35, BP: 110/83, HR: 133, Oxygen sat %: 98.1, Ht-cm: 142.24, Wt-k.65. * Examination: ???General Examination: ?GENERAL APPEARANCE:?pleasant, well nourished, well developed, in no acute distress, calm and relaxed, morbidly obese, woman.?HEAD:?atraumatic, normocephalic.?EYES:?eomi, perrla, anicteric, conjugate.?EARS:?normal.?NOSE:?septum intact, congested.?ORAL CAVITY:?normal, unremarkable.?NECK/THYROID:?no jugular venous distention, no carotid bruit, thyroid normal.?LYMPH NODES:?no enlarged lymph nodes,spleen normal.?SKIN:?no suspicious lesions, anicteric.?HEART:?no clicks, gallops, murmurs, or rubs, regular rhythm, S1, S2 normal, no s3, or vascular bruits.?LUNGS:?clear to auscultation .?BREASTS:?Not examined.?ABDOMEN:?bowel sounds normal, no ascites, no organomegaly, no mass, morbid obesity, Tenderness to palpation around her abdomen where there is a scar.?RECTAL EXAM:?not examined.?MUSCULOSKELETAL:?extremities unremarkable, no clubbing, cyanosis or edema.?PERIPHERAL PULSES:?normal.?NEUROLOGIC:?alert and oriented, cranial nerves 2-12 grossly intact, deep tendon reflexes 2+ symmetrical, motor strength normal upper and lower extremities, sensory exam intact.?PSYCH:?alert, oriented.? Assessment: * Assessment: 1.?Epigastric pain - R10.13 (Primary)???Notes :We have requested the records of the recent gastroenterology consultation.? No change in her medications was made.? Her weight is stable and her nutrition seems good.? She has had no nausea vomiting or diarrhea.? The pain today was reproduced by pressure over scar in the upper anterior abdominal wall.? This raises a question of nerve entrapment.???2.?Iron deficiency anemia, unspecified - D50.9???Notes :She was continued on the iron therapy. Her ferritin is 212 and her hematocrit is normal. The mean cell volume is normal. The iron deficiency has resolved.???3.?ANNA1 antibody positive - R76.0???Notes :This will be repeated. There is an inflammatory process in progress.???4.?Intermittent asthma, unspecified asthma severity, unspecified whether complicated - J45.20???Notes :She was experiencing some mild inspiratory wheezing today but seemed comfortable breathing. Her current medications were continued.???5.?Non-seasonal allergic rhinitis due to other allergic trigger - J30.89???Notes :We discussed the use of non-drowsy antihistamines now that pollen season is upon us. She will reconsult with me if her symptoms are not alleviated.???6.?Hyperlipidemia, unspecified hyperlipidemia type - E78.5???Notes :She is stable at this time. Her lipids are being measured several times a year. I have recommended aggressive weight loss diet low animal fat.???7.?Former smoker - Z87.891???Notes :She is highly motivated to remain abstinent from tobacco. She has a plan to prevent relapse in times of illness or stress.???8.?Morbid obesity - E66.01???Notes :Her body mass index is 39. We discussed her weight loss strategy. We reviewed her diet and nutrition. We made a plan to lose weight at a rate of one half of a pound per week through a diet restricted in fat calories and sodium.???9.?History of depression - Z86.59???Notes :There was no sign of active depression on today's examination.??? Plan: * Treatment: * Procedure Codes:?44632 MEASU RE BLOOD OXYGEN LEVEL * Preventive Medicine:? ??Counseling:?Care goal follow-up plan:?Counseling [...] done: Medical or Other reason not done ?Smoking/Tobacco Use?Patient counseled on the dangers of tobacco use and urged to quit.?02/22/2025 * Follow Up:?2 Weeks (Reason: ov) * Images: * Sign off status: Completed true * Provider:?Carmelo Ching MD Date:?02/2025 Generated for Sarahi sanchez/Lisy/eTransmitting on:?03/01/2025 07:43 AM EDT History and Physical Notes * HPI [...] Referral Date Referring Provider Referred Provider Not brennen 02[facility]25[facility]20[facility] onsult and Treat
== END 2025-03-01 07:42 | disposition home or self-care (01) ==
LOC: HO.XRAY 07:41
PROVIDERS: PCP Internal Medicine Medical Oncology; Visit Provider Internal Medicine Gastroenterology
DX: D50.9 Iron deficiency anemia, unspecified (principal); R10.9 Unspecified abdominal pain; K44.9 Diaphragmatic hernia without obstruction or gangrene
CPT/HCPCS: 74246

== ENCOUNTER → 2025-03-01 07:43 | Outpatient (BNV) | payer MEDICAID, SELFPAY | PROVIDERS: PCP Internal Medicine Medical Oncology; Visit Provider Radiology Diagnostic Radiology | DX: K21.9 Gastro-esophageal reflux disease without esophagitis (principal) | CPT/HCPCS: 74246 ==

== ENCOUNTER → 2025-04-19 08:44 | Day surgery (SDC) | payer MEDICAID, SELFPAY ==
--- OUTSIDE RECORDS SUMMARY | 2025-03-06 09:24 | XMS_ITS ---
Author Organization Carmelo Ching III, MD Address [address] [place] [address] [place] [address] Care Team Providers Care Floor Tiling Professional Name Role Phone Carmelo Ching Primary Care Provider [phone] REASON FOR VISIT elevated potassium level Social History Sex Assigned At : Social History Observation Description Sex Assigned At Female Encounters Encounter Location Date Provider Diagnosis Carmelo Ching III, MD [address] [place] [address] [place] [address] 03/06/2025 Carmelo Ching Plan Of Treatment Next Appt Details Provider Name:Carmelo Ching, 04/03/2025 02:30:00 PM, [address] [place] [address] [place], [address], Provider Name:Carmelo Ching, 01/03/2026 04:00:00 PM, [address] [place] [address] [place], [address], Progress Notes * Natasha BURNSDOB:1960 (64 yo F)Acc No.[id number]:03/06/2025 Patient: Natasha COLLIER :1960 A ge:64 Y S ex:Female Address:[address] [place] [address], [address] * true * Date: Generated for Sarahi sanchez/Lisy/eTransmitting on: 0 03/08/2025 10:52 AM EDT
[2025-03-29 10:00] VITALS: BMI 40.4
--- NOTE | 2025-04-01 08:56 | P.CONAN_ITS ---
HPI - Anesthesia Eval Consult details Narrative: 64yo F for Upper Endoscopy and Colonoscopy, 04/19/25 [facility] Active Problems Active Problems: All Active Problems Hyperkalemia (Acute) Iron deficiency anemia (Acute) Past Medical History Medical History (Updated 03/29/25 @ 09:59 by Aliza Carrillo RN) Hiatal hernia Arthritis Anemia Renal stones Asthma HTN (hypertension) Family History Family history of problems with anesthesia: No Surgical History Surgical History (Updated 03/29/25 @ 10:00 by Aliza Carrillo RN) History of extraction of renal calculus History of esophagogastroduodenoscopy (EGD) H/O colonoscopy Hx of appendectomy Hx of tubal ligation History of Problems with Anesthesia: No Social History Social History Household Members: Spouse and Family Alcohol intake: never Patient Tobacco Use Status: Never used Tobacco service: No Current occupational status: unemployed Meds Allergies Allergy/AdvReac Type Severity Reaction Status Date / Time Iodinated Contrast Media (IV Allergy Unknown Unknown Verified 03/29/25 10:05 Contrast Dye) iodine Allergy Unknown Unknown Verified 03/06/25 11:46 Home Medications ?Medication ?Instructions ?Recorded ?Confirmed ?Last Taken ?Type albuterol sulfate 90 mcg/actuation 90 mcg inhalation D AILY 01/17/23 03/06/25 Unknown History aerosol inhaler (Ventolin HFA) cetirizine 10 mg tablet 10 mg PO DAILY 01/17/2302/17 Unknown History ferrous sulfate 325 mg (65 mg 325 mg PO DAILY 01/17/23 03/29/25 01/14/23 History iron) tablet,delayed release pantoprazole 40 mg tablet,delayed 40 mg PO DAILY 01/1703/29/25 Unknown History release Exam Height,Weight and Vital Signs: Height 4 ft 8 in Weight 81.647 kg Pertinent Lab Results Pertinent Lab Results: Laboratory Tests 03/06/25 12:23 WBC 5.3 Hgb 11.3 L Hct 36.3 L Plt Count 304 Sodium 140 Potassium 5.2 H D Chloride 107 Carbon Dioxide 27 BUN 15 Creatinine 0.70 Assessment and Plan Assessment Anesthesia Assessment: Chart Reviewed Final Anesthetic Review Family History of Problems with Anesthesia: No History of Problems with Anesthesia: No
--- NOTE | 2025-04-19 09:01 | PC.NURSE ---
Pt arrived in [facility] for Colonoscopy with concerns re:efficiency of colon prep. She took the entire prep ( no nausea or vomiting0 but her last results still producing dark formed stool. Dr Leonard aware, procedure cancelled , patient advised with assistance of [facility] Balling Head Tender. Pt to call GI office to reschedule with a 2 day prep. Patient discharged.
== END ==
LOC: HO.SSS 08:45
PROVIDERS: PCP Internal Medicine Medical Oncology; Visit Provider Internal Medicine Gastroenterology
DX: D50.9 Iron deficiency anemia, unspecified (principal); R10.9 Unspecified abdominal pain; Z53.8 Procedure and treatment not carried out for other reasons

== ENCOUNTER 2025-04-25 10:26 | Outpatient (AMB) | payer MEDICAID, SELFPAY ==
--- OUTSIDE RECORDS SUMMARY | 2025-03-08 12:41 | XMS_ITS ---
Author Organization Carmelo Ching III, MD Address [address] [place] [address] [place] [address] Care Team Providers Care Case Packer And Sealer Name Role Phone Carmelo Ching Primary Care Provider REASON FOR VISIT Rx change request Social History Sex Assigned At : Social History Observation Description Sex Assigned At Female Encounters Encounter Location Date Provider Diagnosis Carmelo Ching III, MD [address] [place] [address] [place] [address] 03/08/2025 Carmelo Ching Plan Of Treatment Next Appt Details Provider Name:Carmelo Ching, 07/04/2025 10:30:00 AM, [address] [place] [address] [place], [address], Provider Name:Carmelo Ching, 01/03/2026 04:00:00 PM, [address] [place] [address] [place], [address], Progress Notes * Natasha BURNSDOB:1960 (64 yo F)Acc No.[id number]:03/08/2025 Patient: Natasha COLLIER :1960 A ge:64 Y S ex:Female Address:[address] [place] [address], [address] * true * Date: Generated for Sarahi sanchez/Lisy/eTransmitting on: 0 04/25/2025 10:55 AM EDT
--- OUTSIDE RECORDS SUMMARY | 2025-04-02 06:00 | XMS_ITS ---
Author Organization [facility] Address [address] [place] [address] [place] [phone] Care Team Providers Care Litharge Mill Operator Name Role Phone Carmelo Ching MD Primary Care Provider Unavailab yajaira Leonard Jr, Selwyn Hernandez [phone] REASON FOR VISIT abdominal pain, Encounters Encounter Location Date Provider Diagnosis [facility] [place] [address] [place] [phone] 04/02/2025 Selwyn Leonard Jr Plan Of Treatment Next Appt Details Provider Name:Selwyn stewart Jr, 06/03/2025 10:20:00 AM, [address] [place] [address], Suite [facility], [place], [address], Provider Name:Selwyn stewart Jr, 08/06/2025 08:20:00 AM, [address] [place] [address], [phone], Progress Notes * LI BURNSDOB:1960 (64 yo F)Acc No.[id number]:04/02/2025 EGD and COL/MAC Patient: LI COLLIER Provider: Bar Leonard MD :1960 A ge:64 Y S ex:Female Date:04/02/2025 Address:[address] [place] [address] Pcp:Carmelo Ching MD Subjective: * Chief Complaints: [...] MD Date: 0 04/02/2025 Generated for Sarahi sanchez/Lisy/Uniqueitting on: 0 04/25/2025 10:56 AM EDT
--- NOTE | 2025-04-25 10:50 | MHC.OFFVIS ---
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 Repairer Services: Raw Stock Drier Tender Present (Ipropertyz) Raw Stock Drier Tender Name: Anne [id number] Information Interpreted: clinical only Vocational School Teacher: Vocational School Teacher Present (ESTUARDO Renee) Accompanied by: Self / Same As Patient Allergies Iodinated Contrast Media (IV Contrast Dye) Allergy (Unknown, Verified 04/25/25 10:58) Unknown iodine Allergy (Unknown, Verified 04/25/25 10:58) Unknown Is last menstrual period known: No Post menopausal: Yes Patient : No HPI Comments Details: Patient is a postmenopausal woman 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 Head Of Insight concerns: having vaginal bleeding, like a menses, since age 61. Menopause onset age 51. History of recent left breast lump 06:00, found with her primary care has imaging studies this month. She reports some pain. Currently not sexually active. has some itching. STI testing offered; she accepts. Attempting to eat a healthy diet with calcium and vitamin D, had some PT exercise. Last pap smear; 2007, negative. Last mammogram; 2023. Colonoscopy is UTD. FH colon cancer. [facility] Medical History (Updated 04/25/25 @ 11:25 by Anita David CNM) PMB (postmenopausal bleeding) Hiatal hernia Arthritis Anemia Renal stones Asthma HTN (hypertension) Surgical History History of extraction of renal calculus History of esophagogastroduodenoscopy (EGD) H/O colonoscopy Hx of appendectomy Hx of tubal ligation Family History Father Colon cancer Sister Uterine cancer Social History Household Members: Spouse and Family Alcohol intake: never Patient Tobacco Use Status: Never used Tobacco service: No Current occupational status: unemployed Female Reproductive History Menstrual Total pregnancies: 3 Full term: 3 Date of last pap smear: 12/14/07 (NEGATIVE PAP SMEAR, NEGATIVE HPV ) History of abnormal pap smear: No Date of Mammogram: 09/30/23 (bi rad 1) Review of Systems Const All systems reviewed & are unremarkable except as noted in HPI and below Reports as per HPI Eyes Reports no additional complaints ENT Reports no additional complaints Card Reports no additional complaints Resp Reports no additional complaints GI Reports as per HPI and Reports no additional complaints Reports as per HPI Musc Reports no additional complaints Skin/Breast Reports as per HPI Neuro Reports no additional complaints Psych Reports no additional complaints Endo Reports no additional complaints Félix/Lymph Reports no additional complaints Aller/Immun Reports no additional complaints Physical Exam Vital Signs: Last Vital Signs BP 128/76 04/25/25 11:00 BMI result Body Mass Index 36.4 Const General: cooperative, healthy appearing, no acute distress, well developed and alert Orientation/consciousness: patient oriented x3 HEENT Head: Yes normal to inspection Eyes General: appearance normal, both eyes and all related structures Neck Neck: Yes normal visual inspection Thyroid: Thyroid normal Chest Chest palpation & inspection: normal inspection of the chest and other (no puckering, dimpling, peau de orange, retraction, discharge, masses) Breast/axilla inspection: normal inspection of the breasts Breast/axilla palpation: normal palpation of the breasts Resp Effort & Inspection: normal respiratory effort GI Inspection: Yes normal to inspection, Yes obesity and Yes scar Palpation (GI): Soft to palpation Rectal Exam - Female: deferred General: Yes bladder normal to palpation External Female Exam: normal external appearance and normal appearance of the urethra Speculum Exam - Vagina: normal appearance of the vagina, normal palpation, normal vaginal discharge and vagina atrophic Speculum Exam - Cervix: normal appearance of the cervix, normal palpation and Cervical mass present (polyp) Bimanual exam- vagina & uterus: normal bimanual exam, normal palpation, uterine size normal, bladder normal to palpation, normal palpation and non-tender Bimanual Exam- Adnexa, other: no masses Skin General skin exam: no rashes or lesions noted Rashes: no rashes Neuro General: patient oriented x3 Cognition (Neuro): normal cognition Extrem General: Yes normal to inspection Psych Attitude: cooperative Thought process: Normal thought process present Assessment & Plan Assessment & Plan (1) Encounter for well woman exam with routine gynecological exam: Code(s): Z01.419 - Encounter for gynecological examination (general) (routine) without abnormal findings Category: Medical Plan: Discussed: Current recommendations for pap smears per ASCCP guidelines. Breast awareness, periodic self breast exams and yearly mammogram. Maintain a healthy lifestyle, well balanced diet including Calcium 1,200 mg and Vitamin D 600 IU daily, and routine exercise. Patient verbalizes understanding and agrees to the plan of care. She was given opportunity to ask questions and all questions were answered to the best of my ability. 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 This note is constructed using voice recognition software. While every effort has been made to ensure accuracy, on site coordinator errors may have been included. (2) PMB (postmenopausal bleeding): Code(s): N95.0 - Postmenopausal bleeding Category: Medical Plan: Discuss workup to include pelvic ultrasound and follow up endometrial biopsy. Purpose of the biopsy was explained to determine any abnormal cells from the uterine cavity including atypia, precancer, or cancer. Preprocedure instructions provided, advised to have something to eat and drink and take 3 ibuprofen if no contraindications with food and fluids 1 hour before her appointment. The patient expressed understanding and agreement with the plan of care. All of her questions and concerns were addressed to the best of my ability. Total time I personally spent on visit and management today: ?20 minutes. Time spent included review of pertinent office notes in the electronic health record; review of laboratory and imaging results; review of personal family medical history; performing physical exam; discussing diagnosis and plan of care with the patient; documenting the encounter in the EMR. (3) Cervical polyp: Code(s): N84.1 - Polyp of cervix uteri Category: Medical Plan: Discussed: Exam findings with suspected cervical polyp, explained polyp with visual aid of model. The patient expressed understanding and agreement with the plan of care. All of her questions and concerns were addressed to the best of my ability. (4) Vulvar itching: Code(s): L29.2 - Pruritus vulvae Plan BV panel obtained, await results for final plan of care. The patient expressed understanding and agreement with the plan of care. All of her questions and concerns were addressed to the best of my ability. Orders: Orders US pelvic and transvaginal Today N84.1 - Polyp of cervix uteri, N95.0 - Postmenopausal bleeding Coding Level of Care Code New Pt Level 2 (95728) New Pt Prev Care 40-64y(38737) Diagnoses Encounter for well woman exam with routine gynecological exam Z01.419 PMB (postmenopausal bleeding) N95.0 Cervical polyp N84.1 Vulvar itching L29.2
[2025-04-25 11:00] VITALS: BP 128/76; BMI 36.4
== END 2025-04-25 11:48 | disposition home or self-care (01) ==
LOC: HO.HWS 10:26
PROVIDERS: PCP Internal Medicine Medical Oncology; Visit Provider Advanced Practice Midwife
DX: Z01.419 Encounter for gynecological examination (general) (routine) without abnormal findings (principal); N95.0 Postmenopausal bleeding; N84.1 Polyp of cervix uteri; L29.2 Pruritus vulvae
CPT/HCPCS: 99212; 99386; 99459

== ENCOUNTER 2025-04-25 10:26 | Outpatient (REF) | payer MEDICAID, SELFPAY ==
[2025-04-25 16:57] LABS: Bacterial Vaginosis PCR POSITIVE (Negative); Candida Group PCR NOT DETECTED (Not Detect); Candida glab krusei PCR NOT DETECTED (Not Detect); Trichomonas vaginalis PCR NOT DETECTED (Not Detect)
[2025-04-25 17:29] LABS: CT PCR NOT DETECTED (Not Detect.); NG PCR NOT DETECTED (Not Detect.)
== END 2025-04-25 10:27 | disposition home or self-care (01) ==
LOC: HO.LNP 10:26
PROVIDERS: PCP Internal Medicine Medical Oncology; Visit Provider Advanced Practice Midwife
DX: Z01.411 Encounter for gynecological examination (general) (routine) with abnormal findings (principal); Z11.51 Encounter for screening for human papillomavirus (HPV); Z11.8 Encounter for screening for other infectious and parasitic diseases; L92.2 Granuloma faciale [eosinophilic granuloma of skin]; Z11.3 Encounter for screening for infections with a predominantly sexual mode of transmission; N95.0 Postmenopausal bleeding; Z98.51 Tubal ligation status; N84.1 Polyp of cervix uteri
CPT/HCPCS: 81515; 87491; 87591; 87626; 88175; 99212; 99386; 99459

== ENCOUNTER 2025-05-14 14:27 | Outpatient (REF) | payer MEDICAID, SELFPAY ==
--- OUTSIDE RECORDS SUMMARY | 2025-03-08 12:41 | XMS_ITS ---
Author Organization Carmelo Ching III, MD Address [address] [place] [address] [place] [address] Care Team Providers Care Development Writer Name Role Phone Carmelo Ching Primary Care Provider REASON FOR VISIT Rx change request Social History Sex Assigned At : Social History Observation Description Sex Assigned At Female Encounters Encounter Location Date Provider Diagnosis Carmelo Ching III, MD [address] [place] [address] [place] [address] 03/08/2025 Carmelo Ching Plan Of Treatment Next Appt Details Provider Name:Carmelo Ching, 07/04/2025 10:30:00 AM, [address] [place] [address] [place], [address], Provider Name:Carmelo Ching, 01/03/2026 04:00:00 PM, [address] [place] [address] [place], [address], Progress Notes * Natasha BURNSDOB:1960 (64 yo F)Acc No.[id number]:03/08/2025 Patient: Natasha COLLIER :1960 A ge:64 Y S ex:Female Address:[address] [place] [address], [address] * true * Date: Generated for Sarahi sanchez/Lisy/eTransmitting on: 0 05/14/2025 03:29 PM EDT
--- OUTSIDE RECORDS SUMMARY | 2025-03-08 12:56 | XMS_ITS ---
Author Organization Carmelo Ching III, MD Address [address] [place] [address] [place] [address] Care Team Providers Care Tree Trimmer Helper Name Role Phone Carmelo Ching Primary Care Provider Medications Medication SIG (Take, Route, Frequency, Duration) Notes Start Date End Date Status Metoprolol Succinate 25 MG 1 capsule Ora lly Once a day for 90 days 03/08/2025 Active Social History Sex Assigned At : Social History Observation Description Sex Assigned At Female Encounters Encounter Location Date Provider Diagnosis Carmelo Ching III, MD [address] [place] [address] [place] [address] 03/08/2025 Carmelo Ching Plan Of Treatment Medication Medication Name Sig Start Date Stop Date Notes Metoprolol Succinate 25 MG 1 capsule Ora lly Once a day for 90 days 03/08/2025 Next Appt Details Provider Name:Carmelo Ching, 07/04/2025 10:30:00 AM, [address] [place] [address] [place], [address], Provider Name:Carmelo Ching, 01/03/2026 04:00:00 PM, [address] [place] [address] [place], [address], Progress Notes * Natasha SCHUSTERDOB:1960 (64 yo F)Acc No.[id number]:03/08/2025 Patient: D UENO, Natasha :1960 A ge:64 Y S ex:Female Address:[address] [place] [address], [address] * Refills Start Metoprolol Succinate Capsule ER 24 Hour Sprinkle, 25 MG, Orally, 90 Capsule, 1 capsule, Once a day, 90 days, Refills=3 * true * Date: Generated for Sarahi sanchez/Lisy/Uniqueitting on: 0 05/14/2025 03:30 PM EDT
--- OUTSIDE RECORDS SUMMARY | 2025-04-02 06:00 | XMS_ITS ---
Author Organization [facility] Address [address] [place] [address] [place] [address] Care Team Providers Care Trim Stencil Maker Name Role Phone Carmelo Ching MD Primary Care Provider Unavailab yajaira Leonard Jr, Selwyn Hernandez REASON FOR VISIT abdominal pain, Encounters Encounter Location Date Provider Diagnosis [facility] [place] [address] [place] [phone] 04/02/2025 Selwyn Leonard Jr Plan Of Treatment Next Appt Details Provider Name:Selwyn stewart Jr, 06/03/2025 10:20:00 AM, [address] [place] [address], Suite [facility], [place], [address], Provider Name:Selwyn stewart Jr, 08/06/2025 08:20:00 AM, [address] [place] [address], [phone], Progress Notes * LI BURNSDOB:1960 (64 yo F)Acc No.[id number]:04/02/2025 EGD and COL/MAC Patient: LI COLLIER Provider: Bar Leonard MD :1960 A ge:64 Y S ex:Female Date:04/02/2025 Address:[address] [place] [address] Pcp:Carmelo Ching MD Subjective: * Chief Complaints: [...] 0 04/02/2025 Generated for Sarahi sanchez/Lisy/Rosalina on: 0 05/14/2025 03:29 PM EDT
--- OUTSIDE RECORDS SUMMARY | 2025-04-03 10:30 | XMS_ITS ---
Author Organization Carmelo Ching III, MD Address [address] [place] [address] [place] [address] Care Team Providers Care Robotic Machine Tender Production Name Role Phone Carmelo Ching Primary Care Provider Allergies Allergen (clinical drug [...] Date Provider Diagnosis Carmelo Ching III, MD [address] [place] [address] [place] [address] 04/03/2025 Carmelo Ching ANNA1 antibody posit danny [...] Up: 3 Months, Reason: OV Provider Name:Carmelo Ching, 07/04/2025 10:30:00 AM, [address] [facility] [address], [place], [phone], Provider Name:Carmelo Ching, 01/03/2026 04:00:00 PM, [address] [facility] [address], [place], [phone], Progress Notes * Margarita SCHUSTERalirezaDOB:1960 (64 yo F)Acc No.[id number]:04/03/2025 Progress Notes Patient: Natasha COLLIER Provider: Alonso Ching MD :1960 A ge:64 Y S ex:Female Date:04/03/2025 Address:[address] [place] [phone] Subjective: * Chief Complaints: * I [place] [...] 0 04/03/2025 Generated for Niloi daniel/Lisy/eTransmitting on: 05/14/2025 03:29 PM EDT History and Physical Notes * [...]
--- OUTSIDE RECORDS SUMMARY | 2025-04-19 06:20 | XMS_ITS ---
Author Organization [facility] Address [address] [place] [address] [place] [address] Care Team Providers Care Hebrew Cantor Name Role Phone Carmelo Ching MD Primary Care Provider Unavailab Selwyn Gutierrez Jr REASON FOR VISIT fe def anemia, abdominal pain Encounters Encounter Location Date Provider Diagnosis [facility] Outpatient [address] [place] [phone] 04/19/2025 Selwyn Leonard Jr Plan Of Treatment Next Appt Details Provider Name:Selwyn stewart Jr, 06/03/2025 10:20:00 AM, [address] [place] [address], Suite [facility], [place], [phone], Provider Name:Selwyn stewart Jr, 08/06/2025 08:20:00 AM, [address] [place] [address], [phone], Progress Notes * LI BURNSDOB:1960 (64 yo F)Acc No.[id number]:04/19/2025 EGD and COL/MAC Patient: Alistair LI PULIDO Provider: Bar Leonard MD :1960 A ge:64 Y S ex:Female Date:04/19/2025 Address:[address] [place], [place] [phone] Pcp:Carmelo Ching MD Subjective: * Chief Complaints: [...] Pending * Provider: Bar Leonard MD Date: 04/19/2025 Generated for Sarahi sanchez/Lisy/Uniqueitting on: 05/14/2025 03:29 PM EDT
--- NOTE | ~2025-05-14 | MM_ITS ---
EXAMINATIONS: 1. MM DIAGNOSTIC DIGITAL BREAST TOMOSYNTHESIS, BILATERAL 2. Targeted ultrasound of the left breast CLINICAL INFORMATION: According to the requisition, left breast mass at 6 o'clock position. According to the patient, left breast mass at about 3 o'clock position COMPARISON: September 30, 2023 TECHNIQUE: Digital breast tomosynthesis is performed in both the craniocaudal and mediolateral oblique views along with computer-aided detection (CAD). Synthesized 2D images are generated from the tomosynthesis. Skin BB marker was placed at the location of the palpable concern in the left breast, as indicated by the patient. FINDINGS: BREAST COMPOSITION: There are scattered areas of fibroglandular density (ACR BI-RADS breast composition Category b). RIGHT BREAST: No significant masses, suspicious calcifications or other abnormalities are seen. LEFT BREAST: No significant masses, suspicious calcifications or other abnormalities are seen. In particular, no suspicious mammographic findings adjacent to the skin BB marker placed at about 3 o'clock position middle depth. Targeted ultrasound of the left breast was performed at the location of the palpable concern as indicated by the patient. The survey throughout the 2:00-4:00 axis did not suspicious mammographic findings. Targeted ultrasound of the left breast was performed at the location of the palpable concern as indicated in the requisition. The survey throughout the 6:00 axis shows an incidental 0.3 x 0.2 x 0.2 cm round hypoechoic structure surrounded by mildly hyperechoic breast tissue. No internal vascularity demonstrated with color Doppler evaluation. Findings are compatible with fat necrosis. MM/MM tomosynthesis diagnostic BI IMPRESSION: RIGHT BREAST: Negative, no mammographic evidence of malignancy. Normal interval follow-up is recommended in 12 months. LEFT BREAST: Benign, no evidence of malignancy. No suspicious mammographic or sonographic finding to accounts for palpable concern. Clinical follow-up is recommended, independent of imaging findings. Otherwise, normal interval follow-up mammogram is recommended in 12 months. ASSESSMENT: BI-RADS 2 - Benign Findings RECOMMENDATION: 1. Patient should be managed based on the clinical impression. 2. Otherwise, routine annual screening mammography. Results were provided to the patient at time of visit by the technologist. This patient's information was entered into a reminder system with a target due date for their next mammogram. Electronically signed by: Malcom Russell MD 05/14/2025 05:15 PM EDT
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
--- OUTSIDE RECORDS SUMMARY | 2025-05-14 15:30 | XMS_ITS | Patient Health Record ---
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 Name Role Phone Carmelo Ching MD Primary Care Provider Selwyn Cotto Jr Unavailable [phone] Allergies Allergen (clinical drug ingredient) Drug/Non Drug Allergy documented on EMR Reaction Allergy Type Onset Date Status Iodine Unknown Drug Allergy Active iv contrast (uncoded) Unknown Allergy Active Results Component Value Reference Range Notes TSH reflex Free T4 Reviewed date:02/25/2025 08:38:06 AM Interpretation: Performing Lab:[address] [phone] Notes/Report: TSH reflex Free T4 3.44 0.32-4.0 uIU/mL Complete Blood Count no Diff Reviewed date:02/25/2025 08:37:59 AM Interpretation: Performing Lab:[facility], [address] [place] [id number] Notes/Report: White Blood Count 6.5 4.8-10.8 X10*3/uL Red Blood Count 3.58 4.20-5.50 X10*6/uL Hemoglobin 10.6 12.0-16.0 g/dl Hematocrit 34.0 37.0-47.0 % Mean Corpuscular Volume 95.0 80.0-98.0 fL Mean Corpuscular Hemoglobin 29.6 27.0-33.0 pg Mean Corpuscular HGB Conc 31.2 31.0-35.0 g/dl Red Cell Distribution Width 14.4 11.0-16.0 % Platelet Count 328 160-400 X10*3/uL Mean Platelet Volume 9.2 9.4-12.3 fL NRBC Pct Auto 0.0 0.0-0.2 /100WBC NRBC Abs Auto 0.000 0.0-0.012 X10*3/uL Liver Panel Reviewed date:02/25/2025 08:37:52 AM Interpretation: Performing Lab:[address] [address] Notes/Report: Bilirubin Total 0.5 0.0-1.0 mg/dL Bilirubin Direct 0.1 0.0-0.5 mg/dL Aspartate Amino Transferase 19 5-31 U/L Alanine Aminotransferase 12 0-31 U/L Total Protein 7.8 6.5-8.0 g/dL Albumin Level 3.9 3.5-5.0 g/dL Alkaline Phosphatase 76 39-117 U/L Lipase Reviewed date:02/25/2025 08:37:48 AM Interpretation: Performing Lab:[address] [address] Notes/Report: Lipase 22 8-78 U/L FL upper GI w air Reviewed date:03/04/2025 08:42:07 AM Interpretation: Performing Lab: Notes/Report: [address] [address] Fluoroscopy Report Signed Patient: Li Schuster MR#: [id number] 2 : 1960 Acct:[id number] Age/Sex: 64 / F ADM Date: 03/01/25 Loc: HO.YAMILETHAY Attending Dr: Selwyn Leonard MD Ordering Physician: Selwyn Leonard MD Date of Service: 03/01/25 Procedure(s): FL upper GI w air Accession Number(s): [id number] cc: Carmelo Ching MD; Selwyn Leonard MD [...] radius old moderate size hiatal hernia and [id number] gastroesophageal reflux. The mucosal pattern of stomach, duodenal bulb and the sweep is normal FLUOROSCOPY TIME: 1 minute 23 seconds. DOSE AREA PRODUCT: 36.33 uGy-m2 (microgray-meter squared) FL/FL upper GI w air IMPRESSION: Nonreducible moderate size hiatal hernia with gastroesophageal reflux. Electronically signed by: Efrem Kaufman MD 03/01/2025 09:24 AM EDT RP Dictated By: Efrem Kaufman MD Signed By: <Electronically signed by Efrem Kaufman MD in OV> 03/01/25 0924 DD/ 0745 TD/TT: 03/01/25 0805 Vacuum Technician: LIANNA Reason For Referral Referring Provider First Name Carmelo Referring Provider Last Name Humza Referring Provider Speciality Oncology Referred Organization [facility] Referred Provider Selwyn Leonard Jr Referred Address [address] [place] [phone], Referred Provider Specialty Gastroentero logy General Notes Socorro Harden 025 11:36:28 AM EST > requested a [facility] referral from Dr. Ching's office for visit with on [phone] Referral Priority Routine Medications Medication SIG (Take, Route, Frequency, Duration) Notes Start Date End Date Status Pantoprazole Sodium 40 MG Oral for 30 Active Lisinopril 30 MG Oral for 30 A ctive Ferrous Sulfate 325 (65 Fe) MG Oral for 30 Active Melatonin Active Dulcolax 5 MG 4 tablets for bowel prep Orally 2 pills at 3:00 p.m. and 7:00 p.m. the day before the procedure for 1 days 03/29/2025 Active MiraLax 17 GM/SCOOP take for bowel prep Orally Once a day for 1 days 03/29/2025 Active Social History Tobacco Use: Social History [...] Problem Status W/U Status Risk Notes Problem Abdominal pain (34113241) Abdominal pain (R10.9) Active confirmed Problem Iron deficiency anemia (16398060) Iron deficiency anemia (D50.9) Active confirmed Problem 86103482 Hiatal hernia (K44.9) Active confirmed Problem 03014114 Heme positive stool (R19.5) Active confirmed Problem 37746503 Iron deficiency anemia, unspecified iron deficiency anemia type (D50.9) Active confirmed Vital Signs Blood pressure diastolic 77 mm Hg 02/07/2025 Height 56 in 02/07/2025 Blood pressure systolic 111 mm Hg 02/07/2025 Weight 180 lbs 02/07/2025 BMI 40.35 kg/m2 02/07/2025 Encounters Encounter Location Date Provider Diagnosis [facility] [address] [place] [address] 02/07/2025 Selwyn Leonard Jr Iron deficiency anemia, unspecified iron deficiency anemia type D50.9 ; Abdominal pain R10.9 and Hiatal hernia K44.9 [facility] [address] [place] [address] 05/14/2024 Selwyn Leonard Jr [facility] [address] [place] [address] 08/15/2024 Selwyn Leonard Jr [facility] [address] [place] [address] 11/07/2024 Selwyn Leonard Jr [facility] [address] [place] [address] 02/19/2025 Selwyn Leonard Jr Abdominal cramping R10.9 [facility] [address] [place] [address] 02/25/2025 Selwyn Leonard Jr Iron deficiency anemia, unspecified iron deficiency anemia type D50.9 [facility] [address] [place] [address] 03/04/2025 Selwyn Leonard Jr Iron deficiency anemia D50.9 and Abdominal pain R10.9 [facility] [address] [facility] [place] [address] 03/28/2025 Selwyn Leonard Jr [facility] [address] [facility] [place] [address] 04/01/2025 Selwyn Leonard Jr [facility] [address] [facility] [place] [address] 04/19/2025 Selwyn Leonard Jr [facility] [address] [facility] [place] [address] 04/19/2025 Selwyn Leonard Jr Assessments Encounter Date Diagnosis (ICD Code) Assessment Notes Treatment Notes Treatment Clinical Notes Section Notes 02/07/2025 Abdominal pain (ICD-10 - R10.9) We discussed her symptoms today. We discussed hiatal hernias. We recommended further evaluation with upper GI series to assess for any worsening of her hiatal hernia. We discussed treatment of reflux disease with pantoprazole, and recommended she continue this. She will have further evaluation with lab work. She may benefit from a trial of dicyclomine pending these results. We did not recommend repeat endoscopy or colonoscopy at this time and we will await the results of her upper GI series and lab work. 02/07/2025 Iron deficiency anemia, unspecified iron deficiency anemia type (ICD-10 - D50.9) We discussed her symptoms today. We discussed hiatal hernias. We recommended further evaluation with upper GI series to assess for any worsening of her hiatal hernia. We discussed treatment of reflux disease with pantoprazole, and recommended she continue this. She will have further evaluation with lab work. She may benefit from a trial of dicyclomine pending these results. We did not recommend repeat endoscopy or colonoscopy at this time and we will await the results of her upper GI series and lab work. 02/19/2025 Abdominal cramping (ICD-10 - R10.9) 02/25/2025 Iron deficiency anemia, unspecified iron deficiency anemia type (ICD-10 - D50.9) 03/04/2025 Abdominal pain (ICD-10 - R10.9) 03/04/2025 Iron deficiency anemia (ICD-10 - D50.9) 02/07/2025 Hiatal hernia (ICD-10 - K44.9) We discussed her symptoms today. We discussed hiatal hernias. We recommended further evaluation with upper GI series to assess for any worsening of her hiatal hernia. We discussed treatment of reflux disease with pantoprazole, and recommended she continue this. She will have further evaluation with lab work. She may benefit from a trial of dicyclomine pending these results. We did not recommend repeat endoscopy or colonoscopy at this time and we will await the results of her upper GI series and lab work. Plan Of Treatment Pending Test Test Name Order Date LIVER PROFILE 02/07/2025 LIVER PROFILE 02/19/2025 LIPASE 02/07/2025 LIPASE 02/19/2025 IRON + IBC (FE) 02/25/2025 FERRITIN 02/25/2025 B12 02/25/2025 FOLATE 02/25/2025 CBC w DIFF 02/07/2025 CBC w/o DIFF 02/19/2025 CBC w/o DIFF 02/25/2025 XR GI SERIES 02/07/2025 TSH REFLEX FREE T4 02/07/2025 Future Test Test Name Order Date UPPER GI ENDOSCOPY 01/06/2023 COLONOSCOPY 01/06/2023 UPPER GI ENDOSCOPY 03/05/2025 COLONOSCOPY 03/05/2025 Next Appt Details Provider Name:Selwyn stewart Jr, 06/03/2025 10:20:00 AM, [address] [place] [address], [facility], [place], [address], Provider Name:Selwyn stewart Jr, 08/06/2025 08:20:00 AM, [address] [place] [address] , [place], [place], [phone], Insurance Providers Payer Name Payer Address Payer Phone Subscriber Number Group Number Insured Name Patient Relationship to Insured Coverage Start Date Coverage End Date [place] [address] [place] [phone] [id number] LI SCHUSTER Self - patient is the insured Medical (General) History Medical History History ICD Code hypertension asthma kidney stones Anemia arthritis Iron deficiency anemia, uppe r endoscopy and colonoscopy 2022, hiatal hernia and normal colonoscopy, capsule endoscopy 09/10, negative Surgical History Surgery Date(Month/Year) tubal ligation kidney stone removed appendectomy
== END 2025-05-14 14:28 | disposition home or self-care (01) ==
LOC: HO.MAMMO 14:27
PROVIDERS: PCP Internal Medicine Medical Oncology; Visit Provider Internal Medicine Medical Oncology
DX: N63.25 Unspecified lump in the left breast, overlapping quadrants (principal)
CPT/HCPCS: 76642; 77062; 77066

== ENCOUNTER → 2025-05-14 15:00 | Outpatient (BNV) | payer MEDICAID, SELFPAY | PROVIDERS: PCP Internal Medicine Medical Oncology; Visit Provider Radiology Body Imaging | DX: N63.25 Unspecified lump in the left breast, overlapping quadrants (principal) | CPT/HCPCS: 76642; 77062; 77066 ==

== ENCOUNTER 2025-06-13 10:57 | Outpatient (REF) | payer MEDICAID, SELFPAY ==
--- NOTE | ~2025-06-13 | US_ITS ---
CLINICAL HISTORY: N95.0 - Postmenopausal bleeding Ultrasound of the female pelvis Comparison: None provided Technique: Grayscale ultrasound with assistance of color Doppler. Transabdominal scanning performed for overall anatomy. Transvaginal scanning performed for better anatomic delineation. Findings: Retroverted uterus measures 6.9 x 4.0 x 5.1 cm, mildly heterogeneous myometrium, no fibroid is seen. The endometrium is thickened, measuring 16 mm in thickness, multifocal cystic changes and irregularly thick septa color Doppler demonstrates mild vascular flow. Nabothian cysts at the cervix. Unremarkable atrophic ovaries, right ovary measures 1.5 x 1.5 x 1.3 cm, left ovary 1.9 x 0.9 x 0.7 cm, no suspicious ovarian lesion or abnormal vascular flow. No free fluid. Impression: Thickened endometrium with septated cystic changes and mild vascular flow, malignancy needs to be excluded, recommend tissue diagnosis. This document has been electronically signed by: Macrina Curtis MD on 06/13/2025 17:22:54
== END 2025-06-13 10:58 | disposition home or self-care (01) ==
LOC: HO.US 10:57
PROVIDERS: PCP Internal Medicine Medical Oncology; Visit Provider Advanced Practice Midwife
DX: N95.0 Postmenopausal bleeding (principal); N84.1 Polyp of cervix uteri
CPT/HCPCS: 76830; 76856

== ENCOUNTER → 2025-06-13 10:59 | Outpatient (BNV) | payer MEDICAID, SELFPAY | PROVIDERS: PCP Internal Medicine Medical Oncology; Visit Provider Radiology Diagnostic Radiology | DX: N95.0 Postmenopausal bleeding (principal) | CPT/HCPCS: 76830; 76856 ==

== ENCOUNTER 2025-06-18 15:02 | Outpatient (AMB) | payer MEDICAID, SELFPAY ==
--- OUTSIDE RECORDS SUMMARY | 2025-02-22 06:45 | XMS_ITS ---
Author Organization Carmelo Ching III, MD Address [address] [place] [address] [place] [address] Care Team Providers Care Sole Molder Name Role Phone Dr. Carmelo Ching III Primary Care Provider Reason For Referral Reason Consult and Treat Diagnosis 1 Large hiatal hernia (K44.9) Referral Organization Carmelo Ching III, MD Referring Provider First Name Carmelo Referring Provider Last Name Humza Referring Provider Speciality Internal M edicine Ref[facility] Provider [facility] Referred Provider Specialty General Surg mariela General Notes Cathryn Alva 05/2025 11:07:00 AM >Referral FaxedAlistair Amber 02/25/2025 11:23:51 AM > Anna is calling from [facility] General surgery, she stated they do not treat Hiatal Hernias there. Stated patient could be referred to [facility] or [facility] Referral Priority Routine Referral Appointment Date [...] Problem Status W/U Status Risk Notes Problem 92024916 Epigastric pain (R10.13) Active confirmed We have [...] Date Provider Diagnosis Carmelo Ching III, MD [address] [place] [address] DR [address]ER, [place]I [phone] 02/22/2025 Carmelo Ching Epigastric pain R10. 13 [...] 02/25/2025 02/25/2025, Consult and Treat, General Surgery [facility] Appt Details Follow Up: 2 Weeks, Reason: ov Provider Name:Carmelo Ching , 07/04/2025 10:30:00 AM, [address] [place] [address] [address], [place], [address], Provider Name:Carmelo Ching , 01/03/2026 04:00:00 PM, [address] [place] [address] [address], [place], [address], Progress Notes * Natasha SCHUSTERDOB:1960 (64 yo F)Acc No.[id number]:02/22/2025 Progress Notes Patient: Natasha COLLIER Provider: Alonso Ching MD :1960 A ge:64 Y S ex:Female Date:02/22/2025 Address:[address] [place] [id number] Subjective: * Chief Complaints: * H iatal [...] 0 02/22/2025 Generated for Niloi daniel/Lisy/Rosalina on: 0 06/18/2025 04:25 PM EDT History and Physical Notes * [...] Referred Provider Not es 02/25/2025 Carmelo Ching [facility], General Surgery C onsult and Treat
--- OUTSIDE RECORDS SUMMARY | 2025-03-06 09:24 | XMS_ITS ---
Author Organization Carmelo Ching III, MD Address [address] [place] [address] [place] [address] Care Team Providers Care Plate Mill Hand Name Role Phone Dr. Carmelo Ching III Primary Care Provider REASON FOR VISIT elevated potassium level Social History Sex Assigned At : Social History Observation Description Sex Assigned At Female Encounters Encounter Location Date Provider Diagnosis Carmelo Ching III, MD [address] [place] [address] [place] [address] 03/06/2025 Carmelo Ching Plan Of Treatment Next Appt Details Provider Name:Carmelo Ching , 07/04/2025 10:30:00 AM, [address] [place] [address] [place], [address], Provider Name:Carmelo Ching , 01/03/2026 04:00:00 PM, [address] [place] [address] [place], [address], Progress Notes * Natasha SCHUSTERDOB:1960 (64 yo F)Acc No.[id number]:03/06/2025 Patient: Natasha COLLIER :1960 A ge:64 Y S ex:Female Address:[address] [place] [address], [address] * true * Date: Generated for Printi ng/Fafredyg/eTransmitting on: 0 06/18/2025 04:24 PM EDT
--- OUTSIDE RECORDS SUMMARY | 2025-03-08 12:41 | XMS_ITS ---
Author Organization Carmelo Ching III, MD Address [address] [place] [address] [place] [address] Care Team Providers Care Architectural Job Captain Name Role Phone Dr. Carmelo Ching III Primary Care Provider REASON FOR VISIT Rx change request Social History Sex Assigned At : Social History Observation Description Sex Assigned At Female Encounters Encounter Location Date Provider Diagnosis Carmelo Ching III, MD [address] [place] [address] [place] [address] 03/08/2025 Carmelo Ching Plan Of Treatment Next Appt Details Provider Name:Carmelo Ching , 07/04/2025 10:30:00 AM, [address] [place] [address] [place], [address], Provider Name:Carmelo Ching , 01/03/2026 04:00:00 PM, [address] [place] [address] [place], [address], Progress Notes * Natasha SCHUSTERDOB:1960 (64 yo F)Acc No.[id number]:03/08/2025 Patient: Natasha COLLIER :1960 A ge:64 Y S ex:Female Address:[address] [place] [address], [address] * true * Date: Generated for Printi ng/Fafredyg/eTransmitting on: 0 06/18/2025 04:25 PM EDT
--- OUTSIDE RECORDS SUMMARY | 2025-03-08 12:56 | XMS_ITS ---
Author Organization Carmelo Ching III, MD Address [address] [place] [address] [place] [address] Care Team Providers Care Player Services Representative Name Role Phone Dr. Carmelo Ching III Primary Care Provider Medications Medication SIG (Take, Route, Frequency, Duration) Notes Start Date End Date Status Metoprolol Succinate 25 MG 1 capsule Ora lly Once a day for 90 days 03/08/2025 Active Social History Sex Assigned At : Social History Observation Description Sex Assigned At Female Encounters Encounter Location Date Provider Diagnosis Carmelo Ching III, MD [address] [place] [address] [place] [address] 03/08/2025 Carmelo Ching Plan Of Treatment Medication Medication Name Sig Start Date Stop Date Notes Metoprolol Succinate 25 MG 1 capsule Ora lly Once a day for 90 days 03/08/2025 Next Appt Details Provider Name:Carmelo Ching , 07/04/2025 10:30:00 AM, [address] [place] [address] [place], [address], Provider Name:Carmelo Ching , 01/03/2026 04:00:00 PM, [address] [place] [address] [place], [address], Progress Notes * Natasha SCHUSTERDOB:1960 (64 yo F)Acc No.[id number]:03/08/2025 Patient: Natasha COLLIER :1960 A ge:64 Y S ex:Female Address:[address] [place] [address], [address] * Refills Start Metoprolol Succinate Capsule ER 24 Hour Sprinkle, 25 MG, Orally, 90 Capsule, 1 capsule, Once a day, 90 days, Refills=3 * true * Date: Generated for Sarahi sanchez/Lisy/Uniqueitting on: 0 06/18/2025 04:26 PM EDT
--- OUTSIDE RECORDS SUMMARY | 2025-04-02 06:00 | XMS_ITS ---
Author Organization [facility] Address [address] [place] [address] Care Team Providers Care Natural Gas Trader Name Role Phone Carmelo Ching MD Primary Care Provider Unavailab Selwyn Gutierrez Jr REASON FOR VISIT abdominal pain, Encounters Encounter Location Date Provider Diagnosis [facility] [place] [address] [place] [phone] 04/02/2025 Selwyn Leonard Jr Plan Of Treatment Next Appt Details Provider Name:Selwyn stewart Jr, 08/06/2025 08:20:00 AM, [address] [place] [address], [phone], Progress Notes * ZAIDADEE LORINANGELDOB:1960 (64 yo F)Acc No.[id number]:04/02/2025 EGD and COL/MAC Patient: LI COLLIER Provider: Bar Leonard MD :1960 A ge:64 Y S ex:Female Date:04/02/2025 Address:[address] [place] [address] Pcp:Carmelo Ching MD Subjective: * Chief Complaints: [...] 04/02/2025 Generated for Sarahi sanchez/Lisy/Rosalina on: 0 06/18/2025 04:25 PM EDT
--- OUTSIDE RECORDS SUMMARY | 2025-04-03 10:30 | XMS_ITS ---
Author Organization Carmelo Ching III, MD Address [address] [place] [address] [place] [address] Care Team Providers Care Manager Of Training Name Role Phone Dr. Carmelo Ching III Primary Care Provider [phone] Allergies Allergen (clinical drug ingredient) Drug/Non Drug [...] Date Provider Diagnosis Carmelo Ching III, MD [address] [place] [address] [place] [address] 04/03/2025 Carmelo Ching ANNA1 antibody posit danny [...] Provider Name:Carmelo Hopsonne , 07/04/2025 10:30:00 AM, [address] [place] [address] [address], [place], [phone], Provider Name:Carmelo Hopsonne , 01/03/2026 04:00:00 PM, [address] [place] [address] [address], [place], [address], Progress Notes * ZAIDADEE MargaritaalirezaDOB:1960 (64 yo F)Acc No.[id number]:04/03/2025 Progress Notes Patient: Natasha COLLIER Provider: Alonso Ching MD :1960 A ge:64 Y S ex:Female Date:04/03/2025 Address:[address] [place] [phone] Subjective: * Chief Complaints: * I [place] [...] 0 04/03/2025 Generated for Niloi daniel/Lisy/eTransmitting on: 0 06/18/2025 04:25 PM EDT History [...]
--- OUTSIDE RECORDS SUMMARY | 2025-04-19 06:20 | XMS_ITS ---
Author Organization [facility] Address [address] [place] [phone] Care Team Providers Care Edi Consultant Name Role Phone Carmelo Ching MD Primary Care Provider Unavailab Selwyn Gutierrez Jr REASON FOR VISIT fe def anemia, abdominal pain Encounters Encounter Location Date Provider Diagnosis [facility] [place] [address] [place] [phone] 04/19/2025 Selwyn Leonard Jr Plan Of Treatment Next Appt Details Provider Name:Selwyn stewart Jr, 08/06/2025 08:20:00 AM, [address] [place] [address], [phone], Progress Notes * ZAIDADEE LORINANGELDOB:1960 (64 yo F)Acc No.[id number]:04/19/2025 EGD and COL/MAC Patient: LI COLLIER Provider: Bar Leonard MD :1960 A ge:64 Y S ex:Female Date:04/19/2025 Address:[address] [place] [address] Pcp:Carmelo Ching MD Subjective: * Chief Complaints: [...] 0 04/19/2025 Generated for Sarahi sanchez/Lisy/Rosalina on: 0 06/18/2025 04:25 PM EDT
--- OUTSIDE RECORDS SUMMARY | 2025-06-03 06:20 | XMS_ITS ---
Author Organization [facility] Address [address] [place] [address] Care Team Providers Care Pastrycook'S Assistant Name Role Phone Carmelo Ching MD Primary Care Provider Unavailab Selwyn Gutierrez Jr Unavailable [phone] Allergies Allergen (clinical drug ingredient) Drug/Non Drug [...] [facility] [address] [place] [address] 06/03/2025 Selwyn Horacio Dey Iron deficiency anemia [...] Provider Name:Selwyn stewart , 08/06/2025 08:20:00 AM, [address] [place] [address] , [place], [place], [phone], Progress Notes * KATY LORINANGELDOB:1960 (64 yo F)Acc No.[id number]:06/03/2025 Progress Notes Patient: LI COLLIER Provider: Bar Leonard MD :1960 A ge:64 Y S ex:Female Date:06/03/2025 Address:[address] [place], [place] [id number] Pcp:Carmelo Ching MD Subjective: * Chief Complaints: [...] c hest pain. G astrointestinal: Comments S [facility] for details. G enitourinary: Difficulty urinating d [...] ietary management education, guidance, and counseling, B [place] management provided Y es. * * The named appointment provid er may or may not be the originator of this progress note, and it is not deemed complete until electronically signed by the appointment provider. Sign off status: Pending * Provider: Bar Leonard MD Date: 0 06/03/2025 Generated for Niloi daniel/Lisy/eTkimaniitting on: 06/18/2025 04:26 PM EDT History and Physical Notes * [...]
[2025-06-18 15:06] VITALS: BP 118/60; BMI 36.4
--- NOTE | 2025-06-18 15:06 | MHC.OFFVIS ---
Vital Signs 06/18/25 15:06 Height 4 ft 11 in Weight 180 lb BMI 36.4 BP 118/60 Blood Pressure Location Rt brachial Position Sitting Intake Visit Reasons: ultrasound results/EMB Intake Note: review u/s results Claim Specialist Required: Yes Claim Specialist Language: Laboratory Equipment Cleaner Services: Claim Specialist Present (in person) Claim Specialist Name: Nereyda BROWN Information Interpreted: non-clinical & clinical Neuroscience Specialist: Neuroscience Specialist Present (Nereyda BROWN) Accompanied by: Self / Same As Patient Allergies Iodinated Contrast Media (IV Contrast Dye) Allergy (Unknown, Verified 06/18/25 15:08) Unknown iodine Allergy (Unknown, Verified 06/18/25 15:08) Unknown Medication List - Last Reconciled 06/18/25 by Sulma Escalona LPN albuterol sulfate 90 mcg/actuation (Ventolin HFA) 90 mcg inhalation DAILY cetirizine 10 mg PO DAILY ferrous sulfate 325 mg PO DAILY pantoprazole 40 mg PO DAILY Is last menstrual period known: Yes Do you need a note to return to daycare/school/sports/work: No HPI Comments Details: Patient is here today for a follow up pelvic ultrasound, accompanied by her partner Davion. History of postmenopausal bleeding for 3 years. PFS Medical History Cervical polyp Thickened endometrium PMB (postmenopausal bleeding) Hiatal hernia Arthritis Anemia Renal stones Asthma HTN (hypertension) Surgical History History of extraction of renal calculus History of esophagogastroduodenoscopy (EGD) H/O colonoscopy Hx of appendectomy Hx of tubal ligation Family History Father Colon cancer Sister Uterine cancer Social History Household Members: Spouse and Family Alcohol intake: never Patient Tobacco Use Status: Never used Tobacco service: No Current occupational status: unemployed Review of Systems Const All systems reviewed & are unremarkable except as noted in HPI and below Endo Reports no additional complaints Physical Exam Vital Signs: BMI result Body Mass Index 36.4 Const General: cooperative, healthy appearing and no acute distress Psych Appearance: well kempt Attitude: cooperative Thought process: Normal thought process present Results Reviewed Results Reviewed: [address] [address] Ultrasound Report Signed with Addenda Patient: Natasha Schuster MR#: [id number] : 1960 Acct:[id number] Age/Sex: 64 / F ADM Date: 06/13/25 Loc: [facility].US Attending Dr: Anita David CNM Ordering Physician: Anita David CNM Date of Service: 06/13/25 Procedure(s): US pelvic and transvaginal Accession Number(s): [id number] cc: Carmelo Ching MD; Anita David CNM~ Reason for Exam: N95.0 - Postmenopausal bleeding ADDENDUMThis document has been electronically signed by: Macrina Curtis MD on 06/13/2025 17:22:54 ADDENDUM: Receipt of this report by the clinical staff was confirmed with Sulma Escalona LPN on Jun 14, 2025 12:46:00 EDT. This document has been electronically signed by: Samantha Rai on 06/14/2025 12:47:48 Addendum Dictated By: Macrina Curtis MD Addendum Signed By: <Electronically signed by Macrina Curtis MD in [place]> 06/14/251247 Addendum Cosigned By: DD/ TD/TT: 06/14/25 CLINICAL HISTORY: N95.0 - Postmenopausal bleeding Ultrasound of the female pelvis Comparison: None provided Technique: Grayscale ultrasound with assistance of color Doppler. Transabdominal scanning performed for overall anatomy. Transvaginal scanning performed for better anatomic delineation. Findings: Retroverted uterus measures 6.9 x 4.0 x 5.1 cm, mildly heterogeneous myometrium, no fibroid is seen. The endometrium is thickened, measuring 16 mm in thickness, multifocal cystic changes and irregularly thick septa color Doppler demonstrates mild vascular flow. Nabothian cysts at the cervix. Unremarkable atrophic ovaries, right ovary measures 1.5 x 1.5 x 1.3 cm, left ovary 1.9 x 0.9 x 0.7 cm, no suspicious ovarian lesion or abnormal vascular flow. No free fluid. Impression: Thickened endometrium with septated cystic changes and mild vascular flow, malignancy needs to be excluded, recommend tissue diagnosis. This document has been electronically signed by: Macrina Curtis MD on 06/13/2025 17:22:54 Dictated By: Macrina Curtis MD Signed By: <Electronically signed by Macrina Curtis MD in [facility]> 06/13/251722 DD/ 21 TD/TT: 06/13/251721 Coil Winder: Assessment & Plan Assessment & Plan (1) PMB (postmenopausal bleeding): Code(s): N95.0 - Postmenopausal bleeding Category: Medical Plan: Discussed: Ultrasound findings- Impression: Thickened endometrium with septated cystic changes and mild vascular flow, malignancy needs to be excluded, recommend tissue diagnosis. Recommended hysteroscopy for removal of cervical polyp and further evaluation of thickened endometrium to rule out atypia, hyperplasia, precancer or cancer. The patient expressed understanding and agreement with the plan of care. All of her questions and concerns were addressed to the best of my ability. Hysteroscopy consult to be scheduled before leaving the department. (2) Cervical polyp: Code(s): N84.1 - Polyp of cervix uteri Category: Medical Plan: See notes above. (3) Thickened endometrium: Code(s): R93.89 - Abnormal findings on diagnostic imaging of other specified body structures Category: Medical Plan See above note for plan of care. This note is constructed using voice recognition software. While every effort has been made to ensure accuracy, stained glass joiner errors may have been included. Coding Level of Care Code Est Pt Level 3 (16773) Diagnoses PMB (postmenopausal bleeding) N95.0 Cervical polyp N84.1 Thickened endometrium R93.89
--- OUTSIDE RECORDS SUMMARY | 2025-06-18 16:25 | XMS_ITS | Patient Health Record ---
Author Organization Carmelo Ching III, MD Address [address] [place] [address] DR NAYAK Deidre [place] [phone] Care Team Providers Care Shop Estimator Name Role Phone Dr. Carmelo Ching III [...] Culture Reviewed date:12/19/2024 02:20:36 PM Interpretation: Performing Lab:[facility], [address] [place] [phone] Notes/Report: Urine Culture Report Result Urine Culture [...] 1.3 BLD Positive Negative - Menstrating No XR chest 2V Reviewed date:08/31/2024 08:44:39 AM Interpretation: Performing Lab: Notes/Report: [address] [address] XRay Report Signed Patient: Natasha Schuster MR#: [id number] 2 : 1960 Acct:[id number] Age/Sex: 63 / F ADM Date: 07/06/24 Loc: HO.XRAY Attending Dr: Carmelo Ching MD Ordering Physician: Carmelo Ching MD Date of Service: 07/06/24 Procedure(s): XR chest 2V Accession Number(s): [id number] cc: Carmelo Ching MD EXAMINATION: XR CHEST [...] 07/16/24 1414 DD/ 1556 TD/TT: 07/06/24 1600 Exercise Planner: [address] [address] XRay Report Signed Patient: Karine Schuster MR#: [id number] 2 : 1960 Acct:[id number] Age/Sex: 63 / F ADM Date: 07/06/24 Loc: HO.XRAY Attending Dr: Carmelo Ching MD Ordering Physician: Carmelo Ching MD Date of Service: 07/06/24 Procedure(s): XR radha st 2V Accession Number(s): [id number] cc: Carmelo Ching MD EXAMINATION: XR CHEST [...] 07/16/24 1414 DD/ 1556 TD/TT: 07/06/24 1600 Exercise Planner: Complete Blood Count Auto Di ff Reviewed date:10/26/2024 04:55:57 AM Interpretation: Performing Lab:[facility], [address] [place] [phone] Notes/Report: White Blood Count 7.3 4.8-10.8 X10*3/uL [...] Panel Reviewed date:10/26/2024 04:55:57 AM Interpretation: Performing Lab:[facility], [address] [place] [phone] Notes/Report: Sodium 138 135-145 mmol/L Potassium 5.3 [...] PROFILE Reviewed date:10/26/2024 04:55:57 AM Interpretation: Performing Lab:[address] [phone] Notes/Report: Iron 61 30-160 mcg/dL Total Iron Binding Capacity 255 228-428 mcg/dL Percent Iron Saturation 24 15-50 % Unsaturated Iron Binding 194 Ferritin Reviewed date:10/26/2024 04:55:57 AM Interpretation: Performing Lab:[facility], [address] [place] [phone] Notes/Report: Ferritin 320 10-250 ng/mL Complete Blood Count Auto Di ff Reviewed date:11/07/2024 03:42:25 PM Interpretation: Performing Lab:[address] [phone] Notes/Report: White Blood Count 6.6 4.8-10.8 X10*3/uL [...] Panel Reviewed date:11/07/2024 03:42:25 PM Interpretation: Performing Lab:[facility], [address] [place] [phone] Notes/Report: Sodium 141 135-145 mmol/L Potassium 4.1 [...] ff Reviewed date:12/15/2024 07:56:11 AM Interpretation: Performing Lab:[address] [phone] Notes/Report: White Blood Count 5.7 4.8-10.8 X10*3/uL [...] RETIC Reviewed date:12/15/2024 07:56:11 AM Interpretation: Performing Lab:[facility], [address] [place] [phone] Notes/Report: Reticulocytes Absolute 0.085 0.026-0.0 95 X10*6/uL Immature Retic Fraction 14.6 3.0-15.9 % Retic HGB Equivalent 31.7 30.0-35.0 pg Reticulocyte Percent 2.1 0.5-1.8 % Ferritin Reviewed date:12/15/2024 07:56:11 AM Interpretation: Performing Lab:[facility], [address] [place] [phone] Notes/Report: Ferritin 212 10-250 ng/mL Protein Electrophoresis, Ser um Reviewed date:12/19/2024 02:20:36 PM Interpretation: Performing Lab:[facility], [address] [place] [phone] Notes/Report: Prot Elec - Total Protein 7.5 [...] already ordered). THIS TEST WAS PERFORMED AT: [facility] [address] [place] [phone] SOTERO CUBA MD Immunofixation Pnl, Serum Reviewed date:12/19/2024 02:20:36 PM Interpretation: Performing Lab:[address] [phone] Notes/Report: IgG 4359 632-5426 mg/dL IgA 476 70-320 mg/dL IgM 82 50-300 mg/dL THIS TEST WAS PERFORMED AT: [facility] [address] [place] [phone] SOTERO CUBA MD Immunofixation Interpretation SEE NOTE No monoclonal protei ns detected. Urinalysis and Microscopic Reviewed date:12/18/2024 08:44:11 AM Interpretation: Performing Lab:[facility], [address] [place] [phone] Notes/Report: Color Urine Yellow Appearance Urine Turbid PH 5.5 5.0-9.0 Glucose Urine UA Negative Negative mg/dL Urine Blood Trace Negative Specific [place] - Urine 1.020 1.005-1.025 Urine Protein Trace [...] date:03/06/2025 01:53:01 PM Interpretation: Performing Lab: Notes/Report: [address] [address] Fluoroscopy Report Signed Patient: Natasha Schuster MR#: [id number] 2 : 1960 Acct:[id number] Age/Sex: 64 / F ADM Date: 03/01/25 Loc: HO.XRAY Attending Dr: Selwyn Leonard MD Ordering Physician: Selwyn Leonard MD Date of Service: 03/01/25 Procedure(s): FL upper GI w air Accession Number(s): [id number] cc: Carmelo Ching MD; Selwyn Leonard MD [...] radius old moderate size hiatal hernia and asxl-wn-lbccrvhb gastroesophageal reflux. The mucosal pattern of stomach, [...] signed by Efrem Kaufman MD in OV> 03/01/25923 DD/ 0745 TD/TT: 03/01/25 08 Exercise Planner: [place] [address] Fluoroscopy Report Signed Patient: Karine Schuster MR#: [id number] 2 : 1960 Acct:[id number] Age/Sex: 64 / F ADM Date: 03/01/25 Loc: HO.XRAY Attending Dr: Jabari Leonard MD Ordering Physician: Selwyn Leonard MD Date of Service: 03/01/25 Procedure(s): FL upp er GI w air Accession Number(s): [id number] cc: Carmelo Ching MD; Selwyn Leonard MD [...] radius old moderate size hiatal hernia and ydit-gb-hsjndkkp gastroesophageal reflux. The mucosal pattern of stomach, duodenal bulb and the sweep is normal FLUOROSCOPY TIME: 1 minute 23 seconds. DOSE AREA PRODUCT: 36.33 uGy-m2 (microgray-meter squared) FL/FL upper GI w air IMPRESSION: Nonreducible moderat e size hiatal hernia with gastroesophageal reflux. Electronically ac d by: Efrem Kaufman MD 03/01/2025 09:24 AM EDT RP Dictated By: Efrem Kaufman MD Signed By: <Electronically signed by Efrem Kaufman MD in OV> 03/01/25923 DD/ TD/TT: 03/01/25804 Exercise Planner: [facility] Complete Blood Count Auto Di ff Reviewed date:03/06/2025 01:53:01 PM Interpretation: Performing Lab:[facility], [address] [place] [phone] Notes/Report: White Blood Count 5.3 4.8-10.8 X10*3/uL [...] Panel Reviewed date:03/06/2025 01:53:01 PM Interpretation: Performing Lab:[facility], [address] [place] [phone] Notes/Report: Sodium 140 135-145 mmol/L Potassium 5.2 [...] PROFILE Reviewed date:03/06/2025 01:53:01 PM Interpretation: Performing Lab:[facility], [address] [place] [phone] Notes/Report: Iron 41 30-160 mcg/dL Total Iron Binding Capacity 289 228-428 mcg/dL Percent Iron Saturation 14 15-50 % Unsaturated Iron Binding 248 Ferritin Reviewed date:03/06/2025 01:53:01 PM Interpretation: Performing Lab:[facility], [address] [place] [phone] Notes/Report: Ferritin 97 10-250 ng/mL Vitamin B12 and Folate Reviewed date:03/06/2025 01:53:01 PM Interpretation: Performing Lab:[facility], [address] [place] [phone] Notes/Report: Vitamin B12 687 200-900 pg/mL NORMAL 200-900 PG/ML INDETERMINATE 160-199 PG/ML DEFICIENT < 160 PG/ML Folate 11.1 > or = 4.0 ng/mL Reference Values: > or = 4.0 ng/mL < 4.0 ng/mL suggests folate deficiency Methotrexate, aminopterin and folinic acid (leucovorin) are chemotherapeutic agents whose molecular structures are similar to folate; therefore, the Endocrinology Teacher folate assay cannot be used for patients using these drugs. CT NG by PCR Reviewed date:04/28/2025 07:04:49 AM Interpretation: Performing Lab:[facility], [address] [place] [phone] Notes/Report: CT PCR NOT DETECTED Not Detect. [...] Panel Reviewed date:04/28/2025 07:04:49 AM Interpretation: Performing Lab:[facility], [address] [place] [phone] Notes/Report: Trichomonas vaginalis PCR NOT DETECTED Not [...] glab krusei PCR NOT DETECTED Not Detect Pap Smear Reviewed date:06/03/2025 01:05:18 PM Interpretation: Performing Lab:[facility], [address] [place] [phone] Notes/Report: --- Name: Natasha Schuster Age/Sex: 64/F : 1960 Unit#: [id number] Attend Dr: Anita David CNM Re04/25/25 Status : DEP REF Location: .LN Disch: --- SPEC : [id number] REC STATUS: SLY COLLINS NUM: [id number] TATIANA: 04/25/254 [facility] DR: Anita David [facility] ENTERED: 04/26/25 45 SP TYPE: Pap Smr OTHR DR: Carmelo Ching MD ORDERED: Pap Smear Interpretation Satisfactory for evaluation. Negative for intraepithelial lesion or malignancy. Moderate inflammation. HPV High Risk: Negative HPV Genotyping 16: Negative HPV Genotyping 18: Negative Clinical Information LMP: Menopausal Previous PAP test: 2007, unknown findings Other history: Encounter for well woman exam with routine gynecological exam, polyp of cervix Material Received ThinPrep-Cervical PAP Disclaimer As of July 11, the technical services to include automated prescreening performed by the ThinPrep Imag ing System, PAP screening and HPV testing will be performed at [facility] (CLIA #[id number]), [address] [place] [address]. Testing for H PV was performed using [...] detected. All professional services are performed by [facility] ([address] [place] [address]; P h: [phone]; CLIA #[id number]). The PAP Test is a screening procedure with the inherent possibility of both false negative and false positive results. Results should be interpreted in the context of historic and current clinical findings. Reliability of the PAP Test is enhanced by performing the test on a regular repetit danny basis. CONTINUED ON NEXT PAGE --- Name: Natasha Schuster Age/Sex: 64/F : 1960 Unit#: [id number] Attend Dr: Anita David CNM Re04/25/25 Status : DEP REF Location: HO.LNP Disch: --- SPEC : [id number] REC STATUS: SLY DENNIS NUM: [id number] TATIANA: 04/25/25-1324 [facility] DR: Anita David CNM ENTERED: 04/26/25- 45 SP TYPE: Pap Smr OTHR DR: Carmelo Ching MD ORDERED: Pap Smear Copies To: Carmelo Ching MD [address] [place] [address], [address] [place] [address] Anita David CNM [facility] [address] [facility] [address] [place] [address] --- Signed (signature on file) CARIDAD Garg (ASCP) 04/30/25 0820 --- END OF REPORT HPV High risk Reviewed date:06/03/2025 01:05:18 PM Interpretation: Performing Lab:[facility], [address] [place] [phone] Notes/Report: HPV High Risk Negative Negative HPV Genotype 16 Negative Negative HPV Genotype 18 Negative Negative HPV testing performed at [facility] (CLIA #[id number]), [address] [place] [address]. Testing for HPV was performed using the [employer] system. The presence of HPV in the [...] result indicates such sequences were not detected. MM tomosynthesis diagnostic BI Reviewed date:06/03/2025 01:05:18 PM Interpretation: Performing Lab: Notes/Report: [facility]'[address] [place] [address] Mammography Report Signed Patient: Natasha Schuster MR#: [id number] 2 : 1960 Acct:[id number] Age/Sex: 64 / F ADM Date: 05/14/25 Loc: MALCOLM.SEBASTIENO Attending Dr: Carmelo Ching MD Ordering Physician: Carmelo Ching MD Results: 2Benign Findings Date of Service: 05/14/25 Follow Up: 1 Year From Orig ina Mammogram Procedure(s): MM tomosynthesis diagnostic BI Accession Number(s): [id number] cc: Carmelo Ching MD EXAMINATIONS: 1. MM DIAGNOSTIC DIGITAL BREAST TOMOSYNTHESIS, BILATERAL 2. Targeted ultrasound of the left breast CLINICAL INFORMATION: According to the requisition, left breast mass at 6 o'clock position. According to the patient, left breast mass at about 3 o'clock position COMPARISON: September 30, 2023 TECHNIQUE: Digital breast tomosynthesis is performed in both the craniocaudal and mediolateral oblique views along with computer-aided detection (CAD). Synthesized 2D images are generated from the tomosynthesis. Skin BB marker was placed at the location of the palpable concern in the left breast, as indicated by the patient. FINDINGS: BREAST COMPOSITION: There are scattered areas of fibroglandular density (ACR BI-RADS breast composition Category b). RIGHT BREAST: No significant masses, suspicious calcifications or other abnormalities are seen. LEFT BREAST: No significant masses, suspicious calcifications or other abnormalities are seen. In particular, no suspicious mammographic findings adjacent to the skin BB marker placed at about 3 o'clock position middle depth. Targeted ultrasound of the left breast was performed at the location of the palpable concern as indicated by the patient. The survey throughout the 2:00-4:00 axis did not suspicious mammographic findings. Targeted ultrasound of the left breast was performed at the location of the palpable concern as indicated in the requisition. The survey throughout the 6:00 axis shows an incidental 0.3 x 0.2 x 0.2 cm round hypoechoic structure surrounded by mildly hyperechoic breast tissue. No internal vascularity demonstrated with color Doppler evaluation. Findings are compatible with fat necrosis. MM/MM tomosynthesis diagnostic BI IMPRESSION: RIGHT BREAST: Negative, no mammographic evidence of malignancy. Normal interval follow-up is recommended in 12 months. LEFT BREAST: Benign, no evidence of malignancy. No suspicious mammographic or sonographic finding to accounts for palpable concern. Clinical follow-up is recommended, independent of imaging findings. Otherwise, normal interval follow-up mammogram is recommended in 12 months. ASSESSMENT: BI-RADS 2 - Benign Findings RECOMMENDATION: 1. Patient should be managed based on the clinical impression. 2. Otherwise, routine annual screening mammography. Results were provided to the patient at time of visit by the technologist. This patient's information was entered into a reminder system with a target due date for their next mammogram. Electronically signed by: Malcom Russell MD 05/14/2025 05:15 PM EDT RP Dictated By: Malcom Russell MD Signed By: <Electronically signed by Malcom Russell MD in OV> 05/14/25 1715 DD/ 1440 TD/TT: 05/14/25 1500 Exercise Planner: [place] [facility] [address] [place] [address] Mammography Report Signed Patient: Karine Schuster MR#: [id number] 2 : 1960 Acct:[id number] Age/Sex: 64 / F ADM Date: 05/14/25 Loc: HO.MAMMO Attending Dr: Carmelo Ching MD Ordering Physician: Carmelo Ching MD Results: 2Benign Findings Date of Service: 05/14/25 Follow Up: 1 Year From [facility] Mammogram Procedure(s): MM tomosynthesis diagnostic BI Accession Number(s): [id number] cc: Carmelo Ching MD EXAMINATIONS: 1. MM DIAGNOSTIC DIGITAL BREAST TOMOSYNTHESIS, BILATERAL 2. Targeted ultrasou nd of the left breast CLINICAL INFORMATION: According to the requisition, left breast mass at 6 o'clock position. According to the patient, left breast mass at about 3 o'clock position COMPARISON: September 30, 2023 TECHNIQUE: Digital breast tomosynthesis is performed in both the craniocaudal and mediolateral oblique views along with computer-aided detection (CAD). Synthesized 2D image s are generated from the tomosynthesis. Skin BB marker was placed at the location of the palpable concern in the left breast, as indicated by the patient. FINDINGS: BREAST COMPOSITION: There are scattered areas of fibroglandular density (ACR BI-RADS breast composition Category b). RIGHT BREAST: No significant masses, suspicious calcifications or other abnormalities are seen. LEFT BREAST: No significant masses, suspicious calcifications or other abnormalities are se en. In particular, no suspicious mammographic findings adjacent to the skin BB marker placed at about 3 o'clock position middle depth. Targeted ultrasound of the left breast was performed at the location of the palpable concern as indicated by the patient. The survey throughout the 2:00-4:00 axis d id not suspicious mammographic findings. Targeted ultrasound of the left breast was performed at the location of the palpable concern as indicated in the requisition. The survey throughout the 6:00 axis shows an incidental 0.3 x 0.2 x 0.2 cm round hypoechoic structure surrounded by mildly hyperechoic breast tissue. No internal vascularity demonstrated with color Doppler evaluation. Findings are compati ble with fat necrosis. MM/MM tomosynthesis diagnostic BI IMPRESSION: RIGHT BREAST: Negati ve, no mammographic evidence of malignancy. Normal interval follow-up i s recommended in 12 months. LEFT BREAST: Benign, no evidence of malignancy. No suspicious mammographic or sonographic finding to accounts for palpable concern. Clinical follow-up i s recommended, independent of imaging findings. Otherwise, normal interval follow-up mammogram is recommended in 12 months. ASSESSMENT: BI-RADS 2 - Benign Findings RECOMMENDATION: 1. Patient should be managed based on the clinical impression. 2. Otherwise, routine annual screening mammography. Results were provide d to the patient at time of visit by the technologist. This patient's information was entered into a reminder system with a target due date for their next mammogram. Electronically ac d by: Malcom Russell MD 05/14/2025 05:15 PM EDT Dictated By: Malcom Russell MD Signed By: <Electronically signed by Malcom Russell MD in OV> 05/14/25 1715 DD/ 1440 TD/TT: 05/14/25 1500 Exercise Planner: US breast LT limited mamm on ly Reviewed date:06/03/2025 01:05:18 PM Interpretation: Performing Lab: [facility]Report[facility] [address] [place] [address] Ultrasound Report Signed Patient: Natasha Schuster MR#: [id number] 2 : 1960 Acct:[id number] Age/Sex: 64 / F ADM Date: 05/14/25 Loc: HO.MAMMO Attending Dr: Carmelo Ching MD Ordering Physician: Carmelo Ching MD Date of Service: 05/14/25 Procedure(s): US breast LT limited mamm only Accession Number(s): [id number] cc: Carmelo Ching MD EXAMINATIONS: 1. MM DIAGNOSTIC DIGITAL BREAST TOMOSYNTHESIS, BILATERAL 2. Targeted ultrasound of the left breast CLINICAL INFORMATION: According to the requisition, left breast mass at 6 o'clock position. According to the patient, left breast mass at about 3 o'clock position COMPARISON: September 30, 2023 TECHNIQUE: Digital breast tomosynthesis is performed in both the craniocaudal and mediolateral oblique views along with computer-aided detection (CAD). Synthesized 2D images are generated from the tomosynthesis. Skin BB marker was placed at the location of the palpable concern in the left breast, as indicated by the patient. FINDINGS: BREAST COMPOSITION: There are scattered areas of fibroglandular density (ACR BI-RADS breast composition Category b). RIGHT BREAST: No significant masses, suspicious calcifications or other abnormalities are seen. LEFT BREAST: No significant masses, suspicious calcifications or other abnormalities are seen. In particular, no suspicious mammographic findings adjacent to the skin BB marker placed at about 3 o'clock position middle depth. Targeted ultrasound of the left breast was performed at the location of the palpable concern as indicated by the patient. The survey throughout the 2:00-4:00 axis did not suspicious mammographic findings. Targeted ultrasound of the left breast was performed at the location of the palpable concern as indicated in the requisition. The survey throughout the 6:00 axis shows an incidental 0.3 x 0.2 x 0.2 cm round hypoechoic structure surrounded by mildly hyperechoic breast tissue. No internal vascularity demonstrated with color Doppler evaluation. Findings are compatible with fat necrosis. US/US breast LT limited mamm only IMPRESSION: RIGHT BREAST: Negative, no mammographic evidence of malignancy. Normal interval follow-up is recommended in 12 months. LEFT BREAST: Benign, no evidence of malignancy. No suspicious mammographic or sonographic finding to accounts for palpable concern. Clinical follow-up is recommended, independent of imaging findings. Otherwise, normal interval follow-up mammogram is recommended in 12 months. ASSESSMENT: BI-RADS 2 - Benign Findings RECOMMENDATION: 1. Patient should be managed based on the clinical impression. 2. Otherwise, routine annual screening mammography. Results were provided to the patient at time of visit by the technologist. This patient's information was entered into a reminder system with a target due date for their next mammogram. Electronically signed by: Malcom Russell MD 05/14/2025 05:15 PM EDT RP Dictated By: Malcom Russell MD Signed By: <Electronically signed by Malcom Russell MD in OV> 05/14/25 1715 DD/ 1450 TD/TT: 05/14/25 1545 Exercise Planner: [place] [facility] [address] [place] [address] Ultrasound Report Signed Patient: Karine Schuster MR#: [id number] 2 : 1960 Acct:[id number] Age/Sex: 64 / F ADM Date: 05/14/25 Loc: HO.MAMMO Attending Dr: Carmelo Ching MD Ordering Physician: Carmelo Ching MD Date of Service: 05/14/25 Procedure(s): US jamshid ast LT limited mamm only Accession Number(s): [id number] cc: Carmelo Ching MD EXAMINATIONS: 1. MM DIAGNOSTIC DIGITAL BREAST TOMOSYNTHESIS, BILATERAL 2. Targeted ultrasou nd of the left breast CLINICAL INFORMATION: According to the requisition, left breast mass at 6 o'clock position. According to the patient, left breast mass at about 3 o'clock position COMPARISON: September 30, 2023 TECHNIQUE: Digital breast tomosynthesis is performed in both the craniocaudal and mediolateral oblique views along with computer-aided detection (CAD). Synthesized 2D image s are generated from the tomosynthesis. Skin BB marker was placed at the location of the palpable concern in the left breast, as indicated by the patient. FINDINGS: BREAST COMPOSITION: There are scattered areas of fibroglandular density (ACR BI-RADS breast composition Category b). RIGHT BREAST: No significant masses, suspicious calcifications or other abnormalities are seen. LEFT BREAST: No significant masses, suspicious calcifications or other abnormalities are se en. In particular, no suspicious mammographic findings adjacent to the skin BB marker placed at about 3 o'clock position middle depth. Targeted ultrasound of the left breast was performed at the location of the palpable concern as indicated by the patient. The survey throughout the 2:00-4:00 axis d id not suspicious mammographic findings. Targeted ultrasound of the left breast was performed at the location of the palpable concern as indicated in the requisition. The survey throughout the 6:00 axis shows an incidental 0.3 x 0.2 x 0.2 cm round hypoechoic structure surrounded by mildly hyperechoic breast tissue. No internal vascularity demonstrated with color Doppler evaluation. Findings are compati ble with fat necrosis. US/US breast LT limited mamm only IMPRESSION: RIGHT BREAST: Negati ve, no mammographic evidence of malignancy. Normal interval follow-up i s recommended in 12 months. LEFT BREAST: Benign, no evidence of malignancy. No suspicious mammographic or sonographic finding to accounts for palpable concern. Clinical follow-up i s recommended, independent of imaging findings. Otherwise, normal interval follow-up mammogram is recommended in 12 months. ASSESSMENT: BI-RADS 2 - Benign Findings RECOMMENDATION: 1. Patient should be managed based on the clinical impression. 2. Otherwise, routine annual screening mammography. Results were provide d to the patient at time of visit by the technologist. This patient's information was entered into a reminder system with a target due date for their next mammogram. Electronically ac d by: Malcom Russell MD 05/14/2025 05:15 PM EDT Dictated By: Malcom Russell MD Signed By: <Electronically signed by Malcom Russell MD in OV> 05/14/25 1715 DD/ 1450 TD/TT: 05/14/25 1545 Exercise Planner: US pelvic and transvaginal ( Not yet reviewed by provider) Interpretation: Performing Lab: Notes/Report: [address] [address] Ultrasound Report Signed with Emliy Patient: Natasha Schuster MR#: [id number] 2 : 1960 Acct:[id number] Age/Sex: 64 / F ADM Date: 06/13/25 Loc: HO.US Attending Dr: Anita David CNM Ordering Physician: Anita David CNM Date of Service: 06/13/25 Procedure(s): US pelvic and transvaginal Accession Number(s): [id number] cc: Carmelo Ching MD; Anita David CNM Reason for Exam: N95.0 - Postmenopausal bleeding ADDENDUM This document has been electronically signed by: Macrina Curtis MD on 06/13/2025 17:22:54 ADDENDUM: Receipt of this report by the clinical staff was confirmed with Sulma Escalona LPN on Jun 14, 2025 12:46:00 EDT. This document has been electronically signed by: Samantha Rai on 06/14/2025 12:47:48 Addendum Dictated By: Macrina Curtis MD Addendum Signed By: <Electronically signed by Macrina Curtis MD in OV> 06/14/251247 Addendum Cosigned By: DD/ TD/TT: 06/14/25 CLINICAL HISTORY: N95.0 - Postmenopausal bleeding Ultrasound of the female pelvis Comparison: None provided Technique: Grayscale ultrasound with assistance of color Doppler. Transabdominal scanning performed for overall anatomy. Transvaginal scanning performed for better anatomic delineation. Findings: Retroverted uterus measures 6.9 x 4.0 x 5.1 cm, mildly heterogeneous myometrium, no fibroid is seen. The endometrium is thickened, measuring 16 mm in thickness, multifocal cystic changes and irregularly thick septa color Doppler demonstrates mild vascular flow. Nabothian cysts at the cervix. Unremarkable atrophic ovaries, right ovary measures 1.5 x 1.5 x 1.3 cm, left ovary 1.9 x 0.9 x 0.7 cm, no suspicious ovarian lesion or abnormal vascular flow. No free fluid. Impression: Thickened endometrium with septated cystic changes and mild vascular flow, malignancy needs to be excluded, recommend tissue diagnosis. This document has been electronically signed by: Macrina Curtis MD on 06/13/2025 17:22:54 Dictated By: Macrina Curtis MD Signed By: <Electronically signed by Macrina Curtis MD in OV> 06/13/251722 DD/ 21 TD/TT: 06/13/251721 Exercise Planner: [address] [address] Ultrasound Report Signed with Addenda Patient: Karine Schuster MR#: [id number] 2 : 1960 Acct:[id number] Age/Sex: 64 / F ADM Date: 06/13/25 Loc: HO.US Attending Dr: Anita David CNM Ordering Physician: Anita David CNM Date of Service: 06/13/25 Procedure(s): US pel garrison and transvaginal Accession Number(s): [id number] cc: Carmelo Ching MD; Anita David CNM Reason for Exam: N95 .0 - Postmenopausal bleeding ADDENDUM This document has be en electronically signed by: Macrina Curtis MD on 06/13/2025 17:22:54 ADDENDUM: Receipt of this repo rt by the clinical staff was confirmed with Sulma Escalona LPN on Jun 14, 2025 12:46:00 EDT. This document has be en electronically signed by: Samantha Rai on 06/14/2025 12:47:48 Addendum Dictated By : Macrina Curtis MD Addendum Signed By: <Electronically signed by Macrina Curtis MD in OV> 06/14/251247 Addendum Cosigned By: DD/ TD/TT: 06/14/25 CLINICAL HISTORY: N9 5.0 - Postmenopausal bleeding Ultrasound of the female pelvis Comparison: None provided Technique: Grayscale ultrasound with assistance of color Doppler. Transabdominal scann ing performed for overall anatomy. Transvaginal scanning performed f or better anatomic delineation. Findings: Retroverted uterus measures 6.9 x 4.0 x 5.1 cm, mildly heterogeneous myometrium, no fibro id is seen. The endometrium is thickened, measuring 16 mm in thickness, multifocal cystic changes and irregularly thick septa color Doppler demonstrates mild vascular flow. Nabothian cysts at t he cervix. Unremarkable atrophi c ovaries, right ovary measures 1.5 x 1.5 x 1.3 cm, left ovary 1.9 x 0.9 x 0.7 cm, no suspicious ovarian lesion or abnormal vascular flow. No free fluid. Impression: Thickened endometriu m with septated cystic changes and mild vascular flow, malignancy needs to be excluded, recommend tissue diagnosis. This document has be en electronically signed by: Macrina Curtis MD on 06/13/2025 17:22:54 Dictated By: Macrina Curtis MD Signed By: <Electronically signed by Macrina Curtis MD in OV> 06/13/251722 DD/ 21 TD/TT: 06/13/251721 Exercise Planner: Reason For Referral Reason Consult and treat Diagnosis 1 Family history of em otional abuse (Z84.89) Diagnosis 2 Depression, unspecif ied depression type (F32.A) Referral Organization Carmelo Ching III, MD Referring Provider First Name Carmelo Referring Provider Last Name Ching Referring Provider Speciality Internal edicine Referred Provider [facility] Referred Provider Specialty Psychiatry General Notes Cathryn lAva 10/2024 09:06:13 AM >Referral sent to [facility]. 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 Diagnosis 1 Encounter for gyneco logical examination (Z01.419) Referral Organization Carmelo Ching III, MD Referring Provider First Name Carmelo Referring Provider Last Name Ching Referring Provider Speciality Internal edicine Referred Organization [facility] nter Referred Provider [facility], [facility] Referred Address [address] [place] [id number], Referred Provider Specialty OB - Gynecol ogy General Notes Cathryn Alva 11:18:57 AM > Referral Faxed Referral Priority Routine Referral Appointment Date 04/25/2025 Reason Consult and Treat Diagnosis 1 Large hiatal hernia (K44.9) Referral Organization Carmelo Ching III, MD Referring Provider First Name Carmelo Referring Provider Last Name Ching [facility] Referred Provider [facility] Referred Provider Specialty General Surg mariela General Notes Cathryn Alva 05/2025 11:07:00 AM >Referral FaxedAlistair Amber 02/25/2025 11:23:51 AM > Anna is calling [facility] [place], she stated they do not treat Hiatal Hernias there. Stated patient could be referred to [facility] or [facility] Referral Priority Routine Referral Appointment Date 04/23/2025 [...] Problem Status W/U Status Risk Notes Problem 5350200 Former smoker (Z87.891) Active confirmed She is highly motivated to remain abstinent from tobacco. She has a plan to prevent relapse in times of illness or stress. Problem Iron deficiency anemia (20558899) Iron deficiency anemia, unspecified (D50.9) Active confirmed She was continued on the iron therapy. Her ferritin is 212 and her hematocrit is normal. The mean cell volume is normal. The iron deficiency has resolved. Problem 21217556 Epigastric pain (R10.13) Active confirmed We have requested the records of the recent gastroenterology consultation. No change in her medications was made. Her weight is stable and her nutrition seems good. She has had no nausea vomiting or diarrhea. The pain today was reproduced by pressure over scar in the upper anterior abdominal wall. This raises a question of nerve entrapment. Problem 86963848 Ureterolithiasis (N20.1) Active confirmed She is asymptomatic at this time, but has a history of renal colic. Her calcium will be determined. We will see check her uric acid. She will notify me at once if she develops any additional hematuria or ureteral pain Problem 705857649 Obesity (BMI 30-39.9) (E66.9) Active confirmed Problem High antibody titer (841534137) ANNA1 antibody positive (R76.0) Active confirmed This will b e repeated. There is an inflammatory process in progress. Problem 48652273 Hyperlipidemia, unspecified hyperlipidemia type (E78.5) Active confirmed She is stable a t this time. Her lipids are being measured several times a year. I have recommended aggressive weight loss diet low animal fat. Problem 304281313 Elevated total protein (R77.8) Active confirmed Her total protein has been elevated for the last 3 determinations. On her next blood work she will need to have a serum protein electrophoresis and immunofixation. Problem 065451520 Morbid obesity (E66.01) Active confirmed Her body mass index is over 40. We discussed her weight loss strategy. We reviewed her diet and nutrition. We made a plan to lose weight at a rate of one half of a pound per week through a diet restricted in fat calories and sodium. Problem 422412633 History of depression (Z86.59) Active confirmed There was no sign of active depression on today's examination. Problem 748493987725029 Primary osteoarthritis of left knee (M17.12) Active confirmed She complains o f left knee pain and says she has arthritis. She will be able to use ibuprofen. Orthopedics will be involved if needed. Problem 83853634 Non-seasonal allergic rhinitis due to other allergic trigger (J30.89) Active confirmed We discusse d the use of non-drowsy antihistamines now that pollen season is upon us. She will reconsult with me if her symptoms are not alleviated. Problem 021234803 Intermittent asthma, unspecified asthma severity, unspecified whether complicated (J45.20) Active confirmed She was experiencing some mild inspiratory wheezing today but seemed comfortable breathing. Her current medications were continued. Problem 058378752 Elevated sedimentation rate (R70.0) Active confirmed She has had an elevated sedimentation rate and a mildly positive ANAs and an elevated total protein with an elevated IgG and IgA but no monoclonal process. The source of the information is being sought. Problem 92115544 Large hiatal hernia (K44.9) Active confirmed Problem 34781559 Urinary tract infection in female (N39.0) Active [...] Date Provider Diagnosis Carmelo Ching III, MD [address] [place] [address] [place] [address] 09/17/2024 Carmelo Ching Obesity due to exces [...] recent fall Z91.81 Carmelo Ching III, MD [address] [place] [address] [place] [address] 11/12/2024 Carmelo Ching Iron deficiency anem ia, unspecified D50.9 ; Hyperlipidemia, unspecified hyperlipidemia type E78.5 ; Obesity due to excess calories with serious comorbidity, unspecified classification E66.09 ; Acute diarrhea R19.7 ; Elevated total protein R77.8 ; Obesity (BMI 30-39.9) E66.9 and Former smoker Z87.891 Carmelo Ching III, MD [address] [place] [address] [place] [address] 12/17/2024 Carmelo Ching Urinary tract infect ion in female N39.0 ; ANNA1 antibody positive R76.0 ; Elevated total protein R77.8 ; History of depression Z86.59 ; Former smoker Z87.891 and Elevated sedimentation rate R70.0 Carmelo Ching III, MD [address] [place] [address] [place] [address] 01/02/2025 Carmelo Ching Iron deficiency anem ia, unspecified D50.9 ; Hyperlipidemia, unspecified hyperlipidemia type E78.5 ; Screening mammogram, encounter for Z12.31 ; Intermittent asthma, unspecified asthma severity, unspecified whether complicated J45.20 ; Elevated sedimentation rate R70.0 ; Former smoker Z87.891 and Moderate obesity E66.9 Carmelo Ching III, MD [address] [place] [address] [place] [address] 02/22/2025 Carmelo Ching Epigastric pain R10. 13 ; Iron deficiency anemia, unspecified D50.9 ; ANNA1 antibody positive R76.0 ; Intermittent asthma, unspecified asthma severity, unspecified whether complicated J45.20 ; Non-seasonal allergic rhinitis due to other allergic trigger J30.89 ; Hyperlipidemia, unspecified hyperlipidemia type E78.5 ; Former smoker Z87.891 ; Morbid obesity E66.01 and History of depression Z86.59 Carmelo Ching III, MD [address] [place] [address] [place] [address] 04/03/2025 Carmelo Ching ANNA1 antibody posit danny R76.0 ; Morbid obesity E66.01 ; Iron deficiency anemia, unspecified D50.9 ; Intermittent asthma, unspecified asthma severity, unspecified whether complicated J45.20 ; Non-seasonal allergic rhinitis due to other allergic trigger J30.89 ; Hyperlipidemia, unspecified hyperlipidemia type E78.5 ; Former smoker Z87.891 and Urinary tract infection in female N39.0 Carmelo Ching III, MD [address] [place] [address] [place] [address] 07/05/2024 Carmelo Ching Active asthma J45.90 9 and Dyspnea, unspecified type R06.00 Carmelo Ching III, MD [address] [place] [address] [place] [address] 09/20/2024 Carmelo Ching Hx of absence seizur es Z86.69 Carmelo Ching III, MD [address] [place] [address] [place] [address] 11/26/2024 Carmelo Ching III, MD [address] [place] [address] [place] [address] 12/03/2024 Carmelo Ching Elevated total prote in R77.8 ; Iron deficiency anemia due to chronic blood loss D50.0 and Elevated sedimentation rate R70.0 Carmelo Ching III, MD [address] [place] [address] [place] [address] 12/20/2024 Carmelo Ching III, MD [address] [place] [address] [place] [address] 12/20/2024 Carmelo Ching III, MD [address] [place] [address] [place] [address] 01/14/2025 Carmelo Ching Breast lump N63.0 Carmelo Ching III, MD [address] [place] [address] [place] [address] 01/23/2025 Carmelo Ching III, MD [address] [place] [address] [place] [address] 02/04/2025 Carmelo Ching Breast lump N63.0 Carmelo Ching III, MD [address] [place] [address] [place] [address] 03/06/2025 Carmelo Ching III, MD [address] [place] [address] [place] [address] 03/08/2025 Carmelo Ching III, MD [address] [place] [address] DR [place], [place] [address] 03/08/2025 Carmelo Ching Assessments Encounter Date Diagnosis [...] counseling and support. She was referred to [facility] [place]. 02/22/2025 History of depressio n (ICD-10 - [...] breast LT limited 02/04/2025 EEG electroencephalogram 09/20/2024 US pelvic and transvaginal 06/13/2025 Next Appt Details Provider Name:Carmelo Ching , 07/04/2025 10:30:00 AM, [address] [facility] [address], [place], [address], Provider Name:Carmelo Ching , 01/03/2026 04:00:00 PM, [address] [facility] [address], [place], [address], Insurance Providers Payer Name Payer Address Payer Phone Subscriber Number Group Number Insured Name Patient Relationship to Insured Coverage Start Date Coverage End Date [place] [address] [place] [id number] [phone] [id number] MarielyNatasha Self - patient is the insured Medical [...]
--- OUTSIDE RECORDS SUMMARY | 2025-06-18 16:26 | XMS_ITS | Patient Health Record ---
Author Organization [facility] Address [address] [place] [address] Care Team Providers Care Hospital Admitting Clerk Name Role Phone Carmelo Ching MD Primary Care Provider Selwyn Cotto Jr Unavailable [phone] Allergies Allergen (clinical drug ingredient) Drug/Non Drug Allergy documented on EMR Reaction Allergy Type Onset Date Status Iodine Unknown Drug Allergy Active iv contrast (uncoded) Unknown Allergy Active Results Component Value Reference Range Notes TSH reflex Free T4 Reviewed date:02/25/2025 08:38:06 AM Interpretation: Performing Lab:[address] [address] Notes/Report: TSH reflex Free T4 3.44 0.32-4.0 uIU/mL Complete Blood Count no Diff Reviewed date:02/25/2025 08:37:59 AM Interpretation: Performing Lab:[facility], [address] [place] [address] Notes/Report: White Blood Count 6.5 4.8-10.8 X10*3/uL [...] Panel Reviewed date:02/25/2025 08:37:52 AM Interpretation: Performing Lab:[address] [address] Notes/Report: Bilirubin Total 0.5 0.0-1.0 mg/dL Bilirubin Direct 0.1 0.0-0.5 mg/dL Aspartate Amino Transferase 19 5-31 U/L Alanine Aminotransferase 12 0-31 U/L Total Protein 7.8 6.5-8.0 g/dL Albumin Level 3.9 3.5-5.0 g/dL Alkaline Phosphatase 76 39-117 U/L Lipase Reviewed date:02/25/2025 08:37:48 AM Interpretation: Performing Lab:[address] [address] Notes/Report: Lipase 22 8-78 U/L FL upper GI w air Reviewed date:03/04/2025 08:42:07 AM Interpretation: Performing Lab: Notes/Report: [address] [address] Fluoroscopy Report Signed Patient: Li Schuster MR#: [id number] 2 : 1960 Acct:[id number] Age/Sex: 64 / F ADM Date: 03/01/25 Loc: HO.YAMILETHAY Attending Dr: Selwyn Leonard MD Ordering Physician: Selwyn Leonard MD Date of Service: 03/01/25 Procedure(s): FL upper GI w air Accession Number(s): [id number] cc: Carmelo Ching MD; Selwyn Leonard MD [...] radius old moderate size hiatal hernia and [id number] gastroesophageal reflux. The mucosal pattern of stomach, [...] OV> 03/01/2524 DD/ 0745 TD/TT: 03/01/25 0805 Radar Operator: LIANNA Reason For Referral Referring Provider First Name Carmelo Referring Provider Last Name Humza Referring Provider Speciality Oncology Referred Organization [facility] Referred Provider Selwyn Leonard Jr Referred Address [address] [place] [address], Referred Provider Specialty Gastroentero logy General Notes Socorro Harden 025 11:36:28 AM EST > requested a [facility] referral from Dr. Cihng's office for visit with on [phone] Referral Priority Routine Medications Medication SIG (Take, Route, Frequency, Duration) Notes Start Date End Date Status Dulcolax 5 MG 4 tablets for bowel prep Orally 2 pills at 3:00 p.m. and 7:00 p.m. the day before the procedure for 1 days 03/29/2025 Active MiraLax 17 GM/SCOOP take for bowel prep Orally Once a day for 1 days 03/29/2025 Active Lisinopril 30 MG Oral for 30 A ctive Pantoprazole Sodium 40 MG Oral for 30 Active Melatonin Active Ferrous Sulfate 325 (65 Fe) MG Oral for 30 Active Immunizations Vaccine Route Administration Date Status [...] W/U Status Risk Notes Problem Abdominal pain (03512005) Abdominal pain (R10.9) Active confirmed Problem Iron deficiency anemia (65610997) Iron deficiency anemia (D50.9) Active confirmed Problem 22754736 Hiatal hernia (K44.9) Active confirmed Problem 92189730 Heme positive stool (R19.5) Active confirmed Problem 75327028 Iron deficiency anemia, unspecified iron deficiency anemia type (D50.9) Active confirmed Vital Signs Temperature 97.3 degrees Fahrenheit 06/03/2025 Blood pressure diastolic 01 mm Hg 06/03/2025 Height 56 in 06/03/2025 Blood pressure systolic 001 mm Hg 06/03/2025 Weight 179.8 lbs 06/03/2025 BMI 40.31 kg/m2 06/03/2025 Encounters Encounter Location Date Provider Diagnosis [facility] [address] [place] [address] 06/03/2025 Selwyn Leonard Jr Iron deficiency anemia D50.9 [facility] [address] [place] [address] 02/07/2025 Selwyn Leonard Jr Iron deficiency anemia, unspecified iron deficiency anemia type D50.9 ; Abdominal pain R10.9 and Hiatal hernia K44.9 [facility] [address] [place] [address] 08/15/2024 Selwyn Leonard Jr [facility] [address] [place] [address] 11/07/2024 Selwyn Leonard Jr [facility] [address] [place] [address] 02/19/2025 Selwyn Leonard Jr Abdominal cramping R10.9 [facility] [address] [place] [address] 02/25/2025 Selwyn Leonard Jr Iron deficiency anemia, unspecified iron deficiency anemia type D50.9 [facility] [address] [place], [place] [address], [place] [address] 03/04/2025 Selwyn Leonard Jr Iron deficiency anemia D50.9 and Abdominal pain R10.9 [facility] [address] [place] [address] 03/28/2025 Selwyn Leonard Jr [facility] [address] [place] [address] 04/01/2025 Selwyn Leonard Jr [facility] [address] [place], [place] [address], [place] [address] 04/19/2025 Selwyn Leonard Jr [facility] [address] [place], [place] [address], [place] [address] 04/19/2025 Selwyn Leonard Jr Assessments Encounter Date [...] be pending the results of her procedures. 02/07/2025 Abdominal pain (ICD-10 - R10.9) We [...] Provider Name:Selwyn stewart Jr, 08/06/2025 08:20:00 AM, [address] [place] [address], [phone], Insurance Providers Payer Name Payer Address Payer Phone Subscriber Number Group Number Insured Name Patient Relationship to Insured Coverage Start Date Coverage End Date MEDICAID OF [facility] [address] [place] [phone] [id number] LI SCHUSTER Self - patient is the insured Medical (General) History Medical History History ICD Code hypertension asthma kidney stones Anemia arthritis Iron deficiency anemia, uppe r endoscopy and colonoscopy 2022, hiatal hernia and normal colonoscopy, capsule endoscopy 09/10, negative Surgical History Surgery Date(Month/Year) tubal ligation kidney stone removed appendectomy
== END 2025-06-18 15:45 | disposition home or self-care (01) ==
LOC: HO.HWS 15:02
PROVIDERS: PCP Internal Medicine Medical Oncology; Visit Provider Advanced Practice Midwife
DX: N95.0 Postmenopausal bleeding (principal); N84.1 Polyp of cervix uteri; R93.89 Abnormal findings on diagnostic imaging of other specified body structures
CPT/HCPCS: 99213

== ENCOUNTER → 2025-06-18 15:02 | Outpatient (BNVA) | payer MEDICAID, SELFPAY | PROVIDERS: PCP Internal Medicine Medical Oncology; Visit Provider Advanced Practice Midwife | DX: Z71.2 Person consulting for explanation of examination or test findings (principal); N95.0 Postmenopausal bleeding; N84.1 Polyp of cervix uteri; R93.89 Abnormal findings on diagnostic imaging of other specified body structures | CPT/HCPCS: 99212 ==

== ENCOUNTER 2025-06-25 11:40 | Outpatient (REF) | payer MEDICAID, SELFPAY | END 2025-06-25 11:41 | disposition home or self-care (01) | LOC: HO.LNP 11:40 | PROVIDERS: PCP Internal Medicine Medical Oncology; Visit Provider Obstetrics & Gynecology | DX: Z01.818 Encounter for other preprocedural examination (principal); N95.0 Postmenopausal bleeding; N84.1 Polyp of cervix uteri | CPT/HCPCS: 57500; 88305; 99212 ==

== ENCOUNTER 2025-06-25 11:40 | Outpatient (AMB) | payer MEDICAID, SELFPAY ==
--- OUTSIDE RECORDS SUMMARY | 2025-03-06 09:24 | XMS_ITS ---
Author Organization Carmelo Ching III, MD Address [address] [place] [address] [place] [address] Care Team Providers Care Erp Technical Lead Name Role Phone Dr. Carmelo Ching III Primary Care Provider REASON FOR VISIT elevated potassium level Social History Sex Assigned At : Social History Observation Description Sex Assigned At Female Encounters Encounter Location Date Provider Diagnosis Carmelo Ching III, MD [address] [place] [address] [place] [address] 03/06/2025 Carmelo Ching Plan Of Treatment Next Appt Details Provider Name:Carmelo Ching , 07/04/2025 10:30:00 AM, [address] [place] [address] [place], [address], Provider Name:Carmelo Ching , 01/03/2026 04:00:00 PM, [address] [place] [address] [place], [address], Progress Notes * Natasha SCHUSTERDOB:1960 (64 yo F)Acc No.[id number]:03/06/2025 Patient: Natasha COLLIER :1960 A ge:64 Y S ex:Female Address:[address] [place] [address], [address] * true * Date: Generated for Printi daniel/Fafredyg/eTransmitting on: 1 02:45 PM EDT
--- OUTSIDE RECORDS SUMMARY | 2025-03-08 12:41 | XMS_ITS ---
Author Organization Carmelo Ching III, MD Address [address] [place] [address] [place] [address] Care Team Providers Care Histologic Technician Name Role Phone Dr. Carmelo Ching III Primary Care Provider REASON FOR VISIT Rx change request Social History Sex Assigned At : Social History Observation Description Sex Assigned At Female Encounters Encounter Location Date Provider Diagnosis Carmelo Ching III, MD [address] [place] [address] [place] [address] 03/08/2025 Carmelo Ching Plan Of Treatment Next Appt Details Provider Name:Carmelo Ching , 07/04/2025 10:30:00 AM, [address] [place] [address] [place], [address], Provider Name:Carmelo Ching , 01/03/2026 04:00:00 PM, [address] [place] [address] [place], [address], Progress Notes * Natasha SCHUSTERDOB:1960 (64 yo F)Acc No.[id number]:03/08/2025 Patient: Natasha COLLIER :1960 A ge:64 Y S ex:Female Address:[address] [place] [address], [address] * true * Date: Generated for Printi ng/Fafredyg/eTransmitting on: 1 02:46 PM EDT
--- OUTSIDE RECORDS SUMMARY | 2025-03-08 12:56 | XMS_ITS ---
Author Organization Carmelo Ching III, MD Address [address] [place] [address] [place] [address] Care Team Providers Care Lead Bi Developer Name Role Phone Dr. Carmelo Ching III Primary Care Provider Medications Medication SIG (Take, Route, Frequency, Duration) Notes Start Date End Date Status Metoprolol Succinate 25 MG 1 capsule Ora lly Once a day for 90 days 03/08/2025 Active Social History Sex Assigned At : Social History Observation Description Sex Assigned At Female Encounters Encounter Location Date Provider Diagnosis Carmelo Ching III, MD [address] [place] [address] [place] [address] 03/08/2025 Carmelo Ching Plan Of Treatment Medication Medication Name Sig Start Date Stop Date Notes Metoprolol Succinate 25 MG 1 capsule Ora lly Once a day for 90 days 03/08/2025 Next Appt Details Provider Name:Carmelo Ching , 07/04/2025 10:30:00 AM, [address] [place] [address] [place], [phone], Provider Name:Carmelo Ching , 01/03/2026 04:00:00 PM, [address] [place] [address] [place], [address], Progress Notes * Natasha SCHUSTERDOB:1960 (64 yo F)Acc No.[id number]:03/08/2025 Patient: Natasha COLLIER :1960 A ge:64 Y S ex:Female Address:[address] [place] [address], [phone] * Refills Start Metoprolol Succinate Capsule ER 24 Hour Sprinkle, 25 MG, Orally, 90 Capsule, 1 capsule, Once a day, 90 days, Refills=3 * true * Date: Generated for Sarahi sanchez/Lisy/Uniqueitting on: 1 02:47 PM EDT
--- OUTSIDE RECORDS SUMMARY | 2025-04-02 06:00 | XMS_ITS ---
Author Organization [facility] Address [address] [place] [address] Care Team Providers Care Manager Emergency Department Name Role Phone Carmelo Ching MD Primary Care Provider Unavailab Selwyn Gutierrez Jr [phone] REASON FOR VISIT abdominal pain, Encounters Encounter Location Date Provider Diagnosis [facility] [place] [address] [place] [phone] 04/02/2025 Selwyn Leonard Jr Plan Of Treatment Next Appt Details Provider Name:Selwyn stewart Jr, 08/06/2025 08:20:00 AM, [address] [place] [address], [id number], Progress Notes * ZAIDADEE LORINANGELDOB:1960 (64 yo F)Acc No.[id number]:04/02/2025 EGD and COL/MAC Patient: LI COLLIER Provider: Bar Leonard MD :1960 A ge:64 Y S ex:Female Date:04/02/2025 Address:[address] [place] [address] Pcp:Carmelo Ching MD Subjective: * Chief Complaints: [...] 04/02/2025 Generated for Sarahi sanchez/Lisy/Rosalina on: 1 02:46 PM EDT
--- OUTSIDE RECORDS SUMMARY | 2025-04-03 10:30 | XMS_ITS ---
Author Organization Carmelo Ching III, MD Address [address] [place] [address] [place] [address] Care Team Providers Care Fixed Capital Clerk Name Role Phone Dr. Carmelo Ching III Primary Care Provider [phone] Allergies Allergen (clinical drug ingredient) Drug/Non Drug [...] Date Provider Diagnosis Carmelo Ching III, MD [address] [place] [address] [place] [address] 04/03/2025 Carmelo Ching ANNA1 antibody posit danny [...] capsule Ora lly Once a day 03/08/2025 Pending Test Test Name Order Date PROFILE, FASTING (COMPREHENSIVE METABOLI C) 04/03/2025 CBC w DIFF 04/03/2025 PARI (NANCI) 04/03/2025 Ferritin 04/03/2025 Lipid Panel 04/03/2025 Next Appt Details Follow Up: 3 Months, Reason: OV Provider Name:Carmelo Hopsonne , 07/04/2025 10:30:00 AM, [address] [place] [address] [address], [place], [phone], Provider Name:Carmelo Hopsonne , 01/03/2026 04:00:00 PM, [address] [place] [address] [address], [place], [phone], Progress Notes * ZAIDADEE MargaritaalirezaDOB:1960 (64 yo F)Acc No.[id number]:04/03/2025 Progress Notes Patient: Natasha COLLIER Provider: Alonso Ching MD :1960 A ge:64 Y S ex:Female Date:04/03/2025 Address:[address] [place] [phone] Subjective: * Chief Complaints: * I [place] [...] with Cancer. M other: , Unknown. C hildren: alive. D buzzer(s): alive. She is not aware of any [...] As needed for Asthma, Notes to Pharmacist: [id number] Active AsthmaLevocetirizine Dihydrochloride 5 MG Tablet Oral [...] off status: Completed true * Provider: Alonso Cihng MD Date: 0 04/03/2025 Generated for Niloi daniel/Lisy/eTransmitting on: 1 02:46 PM EDT History and Physical Notes * [...]
--- OUTSIDE RECORDS SUMMARY | 2025-04-19 06:20 | XMS_ITS ---
Author Organization [facility] Address [address] [place] [phone] Care Team Providers Care Learning Technologist Name Role Phone Carmelo Ching MD Primary Care Provider Unavailab Selwyn Gutierrez Jr REASON FOR VISIT fe def anemia, abdominal pain Encounters Encounter Location Date Provider Diagnosis [facility] Outpatient [address] [place] [phone] 04/19/2025 Selwyn Leonard Jr Plan Of Treatment Next Appt Details Provider Name:Selwyn stewart Jr, 08/06/2025 08:20:00 AM, [address] [place] [address], [phone], Progress Notes * ZAIDADEE LORINANGELDOB:1960 (64 yo F)Acc No.[id number]:04/19/2025 EGD and COL/MAC Patient: LI COLLIER Provider: Bar Leonard MD :1960 A ge:64 Y S ex:Female Date:04/19/2025 Address:[address] [place] [address] Pcp:Carmelo Ching MD Subjective: * Chief Complaints: [...] 0 04/19/2025 Generated for Sarahi sanchez/Lisy/Rosalina on: 02:46 PM EDT
--- OUTSIDE RECORDS SUMMARY | 2025-06-03 06:20 | XMS_ITS ---
Author Organization [facility] Address [address] [place] [phone] Care Team Providers Care Academic Support Assistant Name Role Phone Carmelo Ching MD Primary Care Provider Unavailab Selwyn Gutierrez Jr Unavailable Allergies Allergen (clinical drug ingredient) Drug/Non Drug Allergy documented on EMR Reaction Allergy Type Onset Date Status Iodine Unknown Drug Allergy Active iv contrast (uncoded) Unknown Allergy Active REASON FOR VISIT Patient presents today for abdominal pain Medications Medication SIG (Take, Route, Frequency, Duration) Notes Start Date End Date Status Dulcolax 5 MG 4 tablets for bowel prep Orally 2 pills at 3:00 p.m. and 7:00 p.m. the day before the procedure for 1 days 03/29/2025 Active Lisinopril 30 MG Oral for 30 A ctive Pantoprazole Sodium 40 MG Oral for 30 Active Melatonin Active Ferrous Sulfate 325 (65 Fe) MG Oral for 30 Active MiraLax 17 GM/SCOOP take for bowel prep Orally Once a day for 1 days 03/29/2025 Active Immunizations Vaccine Route Administration Date Status Comme nts Influenza Unknown 06/03/2025 Refused Social History Tobacco Use: Social History Observation [...] Never (0 point) Points 1 Interpretation Negative Vital Signs Temperature 97.3 degrees Fahrenheit 06/03/20 25 Blood pressure systolic 001 mm Hg 06/03/20 25 Blood pressure diastolic 01 mm Hg 025 Height 56 in 06/03/2025 Weight 179.8 lbs 06/03/2025 BMI 40.31 kg/m2 06/03/2025 Encounters Encounter Location Date Provider Diagnosis [facility] [address] [place] [address] 06/03/2025 Selwyn Horacio Dey Iron deficiency anemia D50.9 Assessments Encounter Date Diagnosis (ICD Code) Assessment Notes Treatment Notes Treatment Clinical Notes Section Notes 06/03/2025 Iron deficiency anemia (ICD-10 - D50.9) We discussed upper endoscopy and colonoscopy today. We discussed risks and benefits of the procedure today. She understands these and agrees to proceed. This will be scheduled at her convenience. Follow-up will be pending the results of her procedures. Plan Of Treatment Next Appt Details Provider Name:Selwyn stewart , 08/06/2025 08:20:00 AM, [address] [place] [address] , [place], [place], [phone], Progress Notes * KATY LORINANGELDOB:1960 (64 yo F)Acc No.[id number]:06/03/2025 Progress Notes Patient: LI COLLIER Provider: Bar Leonard MD :1960 A ge:64 Y S ex:Female Date:06/03/2025 Address:[address] [place], [place] [phone] Pcp:Carmelo Ching MD Subjective: * Chief Complaints: * 1 . Patient presents today for abdominal pain. * HPI: N ew symptom(s): The patient is a pleasant 64-year-old woman seen today in follow-up. Since we saw her last, she has been doing well. She has a history of iron deficiency anemia and is scheduled for follow-up evaluation with upper endoscopy and colonoscopy. Previous attempt with a single day bowel prep was unsuccessful and she has a full 2-day prep scheduled. She has no complaints of rectal bleeding or change in her bowel habits. Weight and appetite have been stable. She has been getting oral iron supplementation. * ROS: G eneral/Constitutional: Change in appetite d enies. F atigue d enies. ? E NT: Patient denies d ifficulty swallowing. R espiratory: Patient denies s hortness of breath. C ardiovascular: Patient denies c hest pain. G astrointestinal: Comments S [facility] for details. G enitourinary: Difficulty urinating d enies. I ncontinence d enies. M usculoskeletal: Patient denies m uscle aches. S kin: Patient denies p ruritis. N eurologic: Patient denies l ow back pain. P sychiatric: Patient denies m ental or physical abuse. * Medical History: H ypertension, Asthma, Kidney stones, Anemia, Arthritis, Iron deficiency anemia, upper endoscopy and colonoscopy 2022, hiatal hernia and normal colonoscopy, capsule endoscopy 09/10, negative. * Surgical History: a ppendectomy , kidney stone removed , tubal ligation . * Family History: F ather: , diagnosed with Colon cancer. M other: . S iblings: sister htn , diabetesbrother colon ca,htn. brother colon cancer and father . * Social History: T obacco Use: T obacco Use/Smoking P atient is a n onsmoker. D rugs/Alcohol: A lcohol Screen D id you have a drink containing alcohol in the past year? Y es, H ow often did you have a drink containing alcohol in the past year? M onthly or less (1 point), How many drinks did you have on a typical day when you were drinking in the past year? 1 or 2 drinks (0 point), H ow often did you have 6 or more drinks on one occasion in the past year??Never (0 point), P oints 1 , I nterpretation N egative. M iscellaneous: M arital status: . Occupation: at home. * Medications: T aking Melatonin , Taking Ferrous Sulfate 325 (65 Fe) MG Tablet Delayed Release Oral , Taking Lisinopril 30 MG Tablet Oral , Taking Pantoprazole Sodium 40 MG Tablet Delayed Release Oral , Taking Dulcolax 5 MG Tablet Delayed Release 4 tablets for bowel prep Orally 2 pills at 3:00 p.m. and 7:00 p.m. the day before the procedure , Taking MiraLax 17 GM/SCOOP Powder take for bowel prep Orally Once a day , Medication List reviewed and reconciled with the patient * Allergies: I odine, iv contrast. Objective: * Vitals: W t:179.8lbs, Ht: 56 in, BMI:40.31Index, BP:001/01mm Hg, Temp:97.3, Wt-k.56. * Examination: G eneral Examination: GENERAL APPEARANCE: i n no acute distress. HEAD: n ormocephalic. EYES: s clera non-icteric. ORAL CAVITY: m ucosa moist. NECK/THYROID: n o lymphadenopathy. SKIN: a nicteric. HEART: S 1, S2 normal, no murmurs. LUNGS: c lear to auscultation bilaterally. CHEST: n ormal shape and expansion. ABDOMEN: s oft, nontender, nondistended, bowel sounds present, no organomegaly . EXTREMITIES: n o clubbing, cyanosis, or edema. PSYCH: c ognitive function intact. Assessment: * Assessment: 1. I [place] deficiency anemia - D50.9 We discussed upper endoscopy and colonoscopy today. We discussed risks and benefits of the procedure today. She understands these and agrees to proceed. This will be scheduled at her convenience. Follow-up will be pending the results of her procedures. Plan: * Treatment: * Immunizations: Influenza (Not administered - Refused: Patient decision) * Preventive Medicine: Counseling: C are goal follow-up plan: A felicia Normal BMI Follow-up D ietary management education, guidance, and counseling, B [place] management provided Y es. * * The named appointment provid er may or may not be the originator of this progress note, and it is not deemed complete until electronically signed by the appointment provider. Sign off status: Pending * Provider: Bar Leonard MD Date: 0 06/03/2025 Generated for Sarahi sanchez/Lisy/Uniqueitting on: 1 02:47 PM EDT History and Physical Notes * HPI (History of Present Illness) Category Sub-Category Detail Notes Category Not es New symptom(s) The patient i s a pleasant 64-year-old woman seen today in follow-up. Since we saw her last, she has been doing well. She has a history of iron deficiency anemia and is scheduled for follow-up evaluation with upper endoscopy and colonoscopy. Previous attempt with a single day bowel prep was unsuccessful and she has a full 2-day prep scheduled. She has no complaints of rectal bleeding or change in her bowel habits. Weight and appetite have been stable. She has been getting oral iron supplementation. Examination Category Sub-Category Detail Notes Category Not es General Examination GENERAL APPEARANCE: in no acute di stress HEAD: normocephalic EYES: sclera non-icteric NECK/THYROID: no lymphadenopathy HEART: S1, S2 normal, no mu rmurs CHEST: normal shape and exp ansion LUNGS: clear to auscultatio n bilaterally ABDOMEN: soft, nontender, non distended, bowel sounds present, no organomegaly SKIN: anicteric EXTREMITIES: no clubbing, cyanosi s, or edema PSYCH: cognitive function i ntact ORAL CAVITY: mucosa moist
--- OUTSIDE RECORDS SUMMARY | 2025-06-24 08:46 | XMS_ITS ---
Author Organization Carmelo Ching III, MD Address [address] [place] [address] [place] [address] Care Team Providers Care Street Light Repairer Name Role Phone Dr. Carmelo Ching III Primary Care Provider REASON FOR VISIT Refill request Medications Medication SIG (Take, Route, Frequency, Duration) Notes Start Date End Date Status Vitamin D 25 MCG (1000 UT) 1 tablet Orally Once a day for 90 days 06/24/2025 06/19/2026 Active Social History Sex Assigned At : Social History Observation Description Sex Assigned At Female Encounters Encounter Location Date Provider Diagnosis Carmelo Ching III, MD [address] [place] [address] [place] [address] 06/24/2025 Carmelo Ching Plan Of Treatment Medication Medication Name Sig Start Date Stop Date Notes Vitamin D 25 MCG (1000 UT) 1 tablet Oral ly Once a day for 90 days 06/24/2025 06/19/2026 Next Appt Details Provider Name:Carmelo Ching , 07/04/2025 10:30:00 AM, [address] [place] [address] [place], [phone], Provider Name:Carmelo Ching , 01/03/2026 04:00:00 PM, [address] [facility] [place], [address], Progress Notes * Natasha SCHUSTERDOB:1960 (64 yo F)Acc No.[id number]:06/24/2025 Patient: Natasha COLLIER :1960 A ge:64 Y S ex:Female Address:[address] [place] [address], [phone] * Refills Start Vitamin D Tablet, 25 MCG (1000 UT), Orally, 90 Tablet, 1 tablet, Once a day, 90 days, Refills=3 Subjective: * Chief Complaints: * R efill request * Medical History: * Surgical History: * Hospitalization/Major Diagno stic Procedure: * Medications: Objective: * Vitals: * Physical Examination: Assessment: Plan: * Treatment: * Procedure Codes: * * Date:
--- NOTE | 2025-06-25 11:40 | MHC.OFFVIS ---
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 Services: Structural Ironworker Present (in person) Structural Ironworker Name: Nereyda BROWN Information Interpreted: non-clinical & clinical Radiology Rn: Radiology Rn Present Accompanied by: Daughter Allergies Iodinated Contrast Media (IV Contrast Dye) Allergy (Unknown, Verified 06/25/25 11:45) Unknown iodine Allergy (Unknown, Verified 06/25/25 11:45) Unknown Is last menstrual period known: Yes Last menstrual period: 07/17/20 Post menopausal: Yes Patient : No Do you need a note to return to daycare/school/sports/work: Yes (for surgery on tuesday) HPI Comments Details: Presenting referred from Anita David CNM . The patient has postmenopausal bleeding for the last 3 years, pelvic ultrasound which done on 06/13 and showed the following: Retroverted uterus measures 6.9 x 4.0 x 5.1 cm, mildly heterogeneous myometrium, no fibroid is seen. The endometrium is thickened, measuring 16 mm in thickness, multifocal cystic changes and irregularly thick septa color Doppler demonstrates mild vascular flow. Nabothian cysts at the cervix. Unremarkable atrophic ovaries, right ovary measures 1.5 x 1.5 x 1.3 cm, left ovary 1.9 x 0.9 x 0.7 cm, no suspicious ovarian lesion or abnormal vascular flow. No free fluid. Impression: Thickened endometrium with septated cystic changes and mild vascular flow, malignancy needs to be excluded, recommend tissue diagnosis. Last co testing in 02/10 was negative [facility] Medical History (Updated 06/25/25 @ 12:02 by Clifton Hammond MD) Cervical polyp Thickened endometrium PMB (postmenopausal bleeding) Hiatal hernia Arthritis Anemia Renal stones Asthma HTN (hypertension) Surgical History History of extraction of renal calculus History of esophagogastroduodenoscopy (EGD) H/O colonoscopy Hx of appendectomy Hx of tubal ligation Family History Father Colon cancer Sister Uterine cancer Social History Household Members: Spouse and Family Alcohol intake: never Patient Tobacco Use Status: Never used Tobacco service: No Current occupational status: unemployed Female Reproductive History Menstrual Date of last menstrual period: 07/17/20 Total pregnancies: 2 Full term: 2 Review of Systems Card Reports as per HPI and Reports no additional complaints Resp Reports as per HPI and Reports no additional complaints GI Reports as per HPI and Reports no additional complaints Reports as per HPI Physical Exam Vital Signs: Last Vital Signs BP 118/70 06/25/25 11:42 BMI result Body Mass Index 36.4 Const General: cooperative, healthy appearing and comfortable Resp Effort & Inspection: normal respiratory effort Auscultation: clear to auscultation bilaterally Percussion: percussion normal Cardio Palpation: normal PMI Rate: regular rate Rhythm: regular rhythm Heart sounds: no murmurs and no rubs Peripheral pulses: Peripheral pulses 2+ throughout GI Inspection: Yes normal to inspection Palpation (GI): Soft to palpation, nontender, no guarding, not rigid and No hepatosplenomegaly present Percussion: Yes normal to percussion Auscultation: normal bowel sounds Rectal Exam - Female: deferred General: Yes Bimanual renal exam normal bilaterally External Female Exam: normal external appearance Speculum Exam - Vagina: normal appearance of the vagina Speculum Exam - Cervix: abnormal appearance of the cervix (Endocervical polyp) Bimanual exam- vagina & uterus: uterine size normal Bimanual Exam- Adnexa, other: no masses 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 All questions were answered, the patient verbalized understanding and signed the consent. Urine test done in the office was negative Using a long Samanta Clamp the endocervical polyp was grasped and twisted around till it came off, hemostasis was secured using pressure. The patient tolerated the procedure well. Instructions were given to the patient to call if bleeding, temp>100.4 occur. The patient verbalized understanding and agreed with the plan. This note was generated with a voice recognition program. Some errors may have been overlooked during the review of this note. Sometimes these errors may affect the content or meaning of a given sentence. [id number]-[id number] of Cervix Procedure code (CPT) selection complete Assessment & Plan Assessment & Plan (1) PMB (postmenopausal bleeding): Comment: Abnormal thick endometrium by ultrasound Code(s): N95.0 - Postmenopausal bleeding Category: Medical Plan: Discussed with the patient the pelvic ultrasound findings, the endometrial stripe thickenss measured by ultrasound was more than 4mm. The negative predictive value, positive predictive value, Sensitivity, specificity of using ultrasound measurement of endometrial stripe to detecting endometrial pathology including hyperplasia , polyp or cancer were discussed with the patient. Recommended to the patient that the next step is an endometrial sampling via hysteroscopy D&C possible polypectomy versus endometrial biopsy to r/o endometrial pathology including hyperplasia or cancer. All the pros and cons risks and benefits of each approach were discussed with the patient, endometrial biopsy being less invasive, office procedure with less sensitivity and inability diagnose a polyp and removal versus hysteroscopy done under anesthesia more invasive more sensitive to endometrial cancer and possibility of diagnosing and endometrial polyp with the possibility of polypectomy. All questions were answered pt verbalized understanding and decided to proceed with hysteroscopy D&C polypectomy/myomectomy. Discussed with the patient the procedure , all benefits and risks including but not limited to inability to complete the procedure , insufficient endometrial tissue for a complete evaluation of the endometrial cavity , bleeding, infection, possible need for blood transfusion with all its risk ( HIV,syphilis, Hepatitis, anaphylaxis shock, others..), injury to bladder, rectum, possible need for laparoscopy/laparotomy or hysterectomy. The patient verbalized understanding and signed the consent. Instructions given the patient to stay NPO after midnight the day prior to the procedure and to take only the specific medication (s) discussed the morning of the surgical procedure and to schedule a 2 week postoperative appointment (2) Cervical polyp: Code(s): N84.1 - Polyp of cervix uteri Category: Medical Plan: Discussed with the patient the finding on pelvic exam, recommended endocervical polypectomy, done see procedure note Orders: Orders AMB W[employer] STORE MANAGER Biopsy Today N84.1 - Polyp of cervix uteri Coding Level of Care Code Est Pt Level 3 (86898) Diagnoses PMB (postmenopausal bleeding) N95.0 Cervical polyp N84.1 CPT Codes W[employer]LESS STORE MANAGER Biopsy - CPT: 23078-Bcwlyb of Cervix ([id number])
[2025-06-25 11:42] VITALS: BP 118/70; BMI 36.4
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
--- OUTSIDE RECORDS SUMMARY | 2025-06-25 14:47 | XMS_ITS | Patient Health Record ---
Author Organization [facility] Address [address] [place] [address] Care Team Providers Care Decal Maker Name Role Phone Carmelo Ching MD Primary Care Provider Selwyn Cotto Jr Unavailable [phone] Allergies Allergen (clinical drug ingredient) Drug/Non Drug Allergy documented on EMR Reaction Allergy Type Onset Date Status Iodine Unknown Drug Allergy Active iv contrast (uncoded) Unknown Allergy Active Results Component Value Reference Range Notes TSH reflex Free T4 Reviewed date:02/25/2025 08:38:06 AM Interpretation: Performing Lab:[address] [address] Notes/Report: TSH reflex Free T4 3.44 0.32-4.0 uIU/mL Complete Blood Count no Diff Reviewed date:02/25/2025 08:37:59 AM Interpretation: Performing Lab:[facility], [address] [place] [address] Notes/Report: White Blood Count 6.5 4.8-10.8 X10*3/uL [...] Panel Reviewed date:02/25/2025 08:37:52 AM Interpretation: Performing Lab:[address] [address] Notes/Report: Bilirubin Total 0.5 0.0-1.0 mg/dL Bilirubin Direct 0.1 0.0-0.5 mg/dL Aspartate Amino Transferase 19 5-31 U/L Alanine Aminotransferase 12 0-31 U/L Total Protein 7.8 6.5-8.0 g/dL Albumin Level 3.9 3.5-5.0 g/dL Alkaline Phosphatase 76 39-117 U/L Lipase Reviewed date:02/25/2025 08:37:48 AM Interpretation: Performing Lab:[address] [address] Notes/Report: Lipase 22 8-78 U/L FL upper GI w air Reviewed date:03/04/2025 08:42:07 AM Interpretation: Performing Lab: Notes/Report: [address] [address] Fluoroscopy Report Signed Patient: Li Schuster MR#: [id number] 2 : 1960 Acct:[id number] Age/Sex: 64 / F ADM Date: 03/01/25 Loc: HO.YAMILETHAY Attending Dr: Selwyn Leonard MD Ordering Physician: Selwyn Leonard MD Date of Service: 03/01/25 Procedure(s): FL upper GI w air Accession Number(s): [id number] cc: Carmelo Ching MD; Selwyn Leonard MD [...] radius old moderate size hiatal hernia and cugn-ur-viyygtqu gastroesophageal reflux. The mucosal pattern of stomach, [...] OV> 03/01/2524 DD/ 0745 TD/TT: 03/01/25 0805 Pension Fund Manager: LIANNA Reason For Referral Referring Provider First Name Carmelo Referring Provider Last Name Humza Referring Provider Speciality Oncology Referred Organization [facility] Referred Provider Selwyn Leonard Jr Referred Address [address] [place] [phone], Referred Provider Specialty Gastroentero logy General Notes Socorro Harden 025 11:36:28 AM EST > requested a [facility] referral from Dr. Ching's office for visit with on [phone] Referral Priority Routine Medications Medication SIG (Take, [...] W/U Status Risk Notes Problem Abdominal pain (46602993) Abdominal pain (R10.9) Active confirmed Problem Iron deficiency anemia (07164705) Iron deficiency anemia (D50.9) Active confirmed Problem 04336036 Hiatal hernia (K44.9) Active confirmed Problem 35400611 Heme positive stool (R19.5) Active confirmed Problem 98694172 Iron deficiency anemia, unspecified iron deficiency anemia type (D50.9) Active confirmed Vital Signs Temperature 97.3 degrees Fahrenheit 06/03/2025 Blood pressure diastolic 01 mm Hg 06/03/2025 Height 56 in 06/03/2025 Blood pressure systolic 001 mm Hg 06/03/2025 Weight 179.8 lbs 06/03/2025 BMI 40.31 kg/m2 06/03/2025 Encounters Encounter Location Date Provider Diagnosis [facility] [address] [place] [address] 06/03/2025 Selwyn Leonard Jr Iron deficiency anemia D50.9 [facility] [address] [place] [address] 02/07/2025 Selwyn Leonard Jr Iron deficiency anemia, unspecified iron deficiency anemia type D50.9 ; Abdominal pain R10.9 and Hiatal hernia K44.9 [facility] [address] [place] [address] 08/15/2024 Selwyn Leonard Jr [facility] [address] [place] [phone] 11/07/2024 Selwyn Leonard Jr [facility] [address] [place] [address] 02/19/2025 Selwyn Leonard Jr Abdominal cramping R10.9 [facility] [address] [place] [address] 02/25/2025 Selwyn Leonard Jr Iron deficiency anemia, unspecified iron deficiency anemia type D50.9 [facility] [address] [place], [place] [address], [place] [address] 03/04/2025 Selwyn Leonard Jr Iron deficiency anemia D50.9 and Abdominal pain R10.9 [facility] [address] [facility] [address] 03/28/2025 Selwyn Leonard Jr [facility] [address] [facility] [address] 04/01/2025 Selwyn Leonard Jr [facility] [address] [place], [place] [address], [place] [address] 04/19/2025 Selwyn Leonard Jr [facility] [address] [place], [place] [address] [place] [address] 04/19/2025 Selwyn Leonard Jr Assessments Encounter Date [...] Name:Selwyn stewart Jr, 08/06/2025 08:20:00 AM, [address] [place] [address], [phone], Insurance Providers Payer Name Payer Address Payer Phone Subscriber Number Group Number Insured Name Patient Relationship to Insured Coverage Start Date Coverage End Date MEDICAID OF [facility] [address] [place] [phone] [id number] LI SCHUSTER Self - patient is the insured Medical (General) History Medical History History ICD Code hypertension asthma kidney stones Anemia arthritis Iron deficiency anemia, uppe r endoscopy and colonoscopy 2022, hiatal hernia and normal colonoscopy, capsule endoscopy 09/10, negative Surgical History Surgery Date(Month/Year) tubal ligation kidney stone removed appendectomy
== END 2025-06-25 12:16 | disposition home or self-care (01) ==
LOC: HO.HWS 11:40
PROVIDERS: PCP Internal Medicine Medical Oncology; Visit Provider Obstetrics & Gynecology
DX: N84.1 Polyp of cervix uteri (principal); N95.0 Postmenopausal bleeding
CPT/HCPCS: 57500; 99213

== ENCOUNTER 2025-07-12 09:13 | Day surgery (SDC) | payer MEDICAID, SELFPAY ==
--- OUTSIDE RECORDS SUMMARY | 2025-06-25 17:50 | XMS_ITS | Data Portability ---
Author Organization [place] [facility], Allergy Address [address] [address] Assessment No assessment recorded. Plan of Treatment [...] Organization Details Recorded Time Bleeding from nose 701506395 Active 2022 Epistaxis; Note: Date Diagnosed: 08/04/2023 10:17 AM (R04.0) Not Available [facility] 4 03:25:05 Dizziness and giddiness 224307194 Active 2022 Dizziness and giddiness; Note: Date Diagnosed: 08/04/2023 10:34 AM (R42) Not Available [facility] 4 03:25:05 Headache 87600204 Active 2022 Headache, unspecifie d; Note: Date Diagnosed: 08/04/2023 10:34 AM (R51.9) Not Available [facility] 4 03:25:05 Essential hypertens ion 07804487 Active 2022 Essential (primary) hypertensi on; Note: Date Diagnosed: 08/04/2023 10:41 AM (I10) Not Available [facility] 4 03:25:04 Anterior epistaxis 323917713 Active 2023 JUAN ANTONIO LEIGH MD [address],[place] [address], [place], [address] , [facility] 4 09:53:04 Problem Notes None recorded. Procedures Surgical History Date Name Laterality Status Provider Name and Address Organization Details Recorded Time 4 Epistaxis Simple Nasal Cautery Right completed JUAN ANTONIO LEIGH MD [address],[place] [address], [place], [address], [facility] 02/02/2024 09:50:16 Imaging Results None recorded. Procedure Notes None recorded. Medical Equipment None Reported. Allergies Allergen ID Allergen Name Allergen Category Reaction Reaction Severity Criticality Documentation Date Start Date Code Code System Note Provider Name and Address Organization Details Recorded Time 826740 Iodinated contrast media (substanc e) medicatio n other Not available Not available 01/31/2024 14105 2003 SNOMED React ion: Unkno wn; Not Available [facility] 4 01:22:27 Medications Name Sig Start Date Stop Date Status Note LastModified by Organization Details LastModified Time melatonin 5 mg tablet active Not Available Not Available Not Available vitamin d3 1,000 unit softg active Not Available Not Available Not Available fluconazo le 100 mg tablet 02/01 completed Not Available Not Available Not Available cetirizin e 10 mg tablet 02/01 completed Medicatio n ID: [id number] Br and Name: cetirizin e Send Method: E-Prescri bed Subs Allowed: subs OK Medica tionGener icName: cetirizin e Medicat ion ID: [id number] Br and Name: cetirizin e Send Method: [...] tablet,de layed release active Medicatio n ID: [id number] Br and Name: pantopraz ole Send Method: [...] 30 mg tablet active Medicatio n ID: [id number] Br and Name: lisinopri l Send Method: E-Prescri bed Subs Allowed: subs OK Medica tionGener icName: lisinopri l Not Available Not Available Not Available ferrous sulfate 325 mg (65 mg iron) tablet,de layed release active Not Available Not Available Not Available Ventolin HFA 90 mcg/actua tion aerosol inhaler active Medicatio n ID: [id number] Br and Name: Ventolin HFA Send Method: E-Prescri bed Subs Allowed: subs OK Medica tionGener icName: Ventolin HFA Not Available Not Available Not Available cholecalc iferol (vitamin D3) 25 mcg (1,000 unit) capsule active Not Available Not Available Not Available mirtazapi ne 7.5 mg tablet active Not Available Not Available Not Available melatonin 5 mg tablet active Medicatio n ID: [id number] Br and Name: MELATONIN 5 MG TABLET Se nd Method: E-Prescri bed Subs Allowed: subs OK Medica tionGener icName: MELATONIN 5 MG TABLET Not Available Not Available Not Available Vitals Date Recorded Body weight Provider Name an d Address Organization Details Last Updated DateTime 02/02/2024 31299.85 g Bina Roche [place] - [facility] 02/02/2024 09:25:14 Social History None recorded. Functional Status None recorded. Mental Status None recorded. Family History Nothing Reported. Medical History Condition Response Allergies/Hayfever Y Anemia Y Hypertension Y Gynecological HistoryNo gynecological history recorded. Obstetrics History GPAL:G 0 P 0 0 0 0 Past Encounters Encounter ID Performer Location Encounter Start Date Encounter Closed Date Diagnosis/Indication Diagnosis SNOMED-CT Code Diagnosis ICD10 Code Diagnosis IMO Codes Diagnosis Note [id number] JUAN ANTONIO LEIGH MD [facility] [address] [place] [address] 02/02/2024 09:16:27 02/02/2024 09:55:49 Anterior epistaxis 131435148 R04.0 Most recent nosebleed was about a month ago. There was a small vessel of the right anterior septum which I cauterized . I did child and family counselor her that I cannot be sure that this is the vessel that has been bleeding. Had some imaging at [facility] which I requested but per their report was normal. We had a detailed discussion on nasal humidifica tion with humidifier , saline sprays, saline jelly at night, applied to the outer nares. Using pressure and Afrin as needed for a nosebleed was discussed. Essential hypertension 39857056 I10 Health Concerns Section Related Observation LastModified by Organization Detai ls LastModified Time None Recorded Concern Status LastModified by Organization Details LastModified Time None Recorded Advance Directives Directive None Recorded Payers Insurance Date Sequence Insurance Name Policy Number Policy Smith Covered Member ID Smith Member ID Guarantor Name 02/02/2024 1 [place] [facility] Natasha Schuster [id number] Natasha Schuster Notes Date Note Type Note Provider Name and Address Organization Details Recorded Time 02/02/2024 text/html 63 yo F presents with recurrent epistaxis. JUAN ANTONIO LEIGH MD [address] [address], [place], [address], [facility] - [facility] 02/02/2024 09:57:05 OBGyn Episode No OBEpisode recorded.
[2025-07-09 15:36] VITALS: BMI 36.4
--- NOTE | 2025-07-10 09:09 | HO.ANESPROP2 ---
Documented by User: Emelina Allan NP 07/10/25 09:10 HPI - Anesthesia Eval Consult details Narrative: 64yo F for D&C Hysteroscopy,possible myomectomy,possible polypectomy PMFSH Active Problems Active Problems: All Active Problems Encounter for well woman exam with routine gynecological exam (Acute) Hyperkalemia (Acute) Iron deficiency anemia (Acute) Thickened endometrium (Acute) Cervical polyp (Acute) PMB (postmenopausal bleeding) (Acute) Past Medical History Medical History Cervical polyp Thickened endometrium PMB (postmenopausal bleeding) Hiatal hernia Arthritis Anemia Renal stones Asthma HTN (hypertension) Family History Family History Father Colon cancer Sister Uterine cancer Family history of problems with anesthesia: No Surgical History Surgical History History of extraction of renal calculus History of esophagogastroduodenoscopy (EGD) H/O colonoscopy Hx of appendectomy Hx of tubal ligation History of Problems with Anesthesia: No Social History Social History Household Members: Spouse and Family Alcohol intake: never Patient Tobacco Use Status: Former Tobacco user Use of substances other than those prescribed or required for medical reasons: No Are you DNR?: No Advance Directives: No Advance Directives Information Provided: Yes service: No Current occupational status: unemployed Meds Allergies Allergy/AdvReac Type Severity Reaction Status Date / Time Iodinated Contrast Media (IV Allergy Unknown Unknown Verified 07/12/25 09:40 Contrast Dye) iodine Allergy Unknown Unknown Verified 07/12/25 09:40 Home Medications ?Medication ?Instructions ?Recorded ?Confirmed ?Last Taken ?Type albuterol sulfate 90 mcg/actuation 90 mcg inhalation DAILY 01/17/23 07/12/25 Unknown History aerosol inhaler (Ventolin HFA) cetirizine 10 mg tablet 10 mg PO DAILY 01/17/23 07/12/25 Unknown History ferrous sulfate 325 mg (65 mg 325 mg PO DAILY 01/17/23 07/12/25 01/14/23 History iron) tablet,delayed release pantoprazole 40 mg tablet,delayed 40 mg PO DAILY 01/17/23 07/12/25 Unknown History release cholecalciferol (vitamin D3) 25 25 mcg PO DAILY 06/25/25 07/12/25 Unknown History mcg (1,000 unit) capsule fluticasone furoate 100 1 ea inhalation DAILY 06/25/25 07/12/25 Unknown History mcg-vilanterol 25 mcg/dose inhalation powder (Breo Ellipta) lisinopril 30 mg tablet 30 mg PO DAILY 06/25/25 07/12/25 07/12/25 08:30 History meclizine 25 mg tablet 25 mg PO BID PRN Dizziness Or 06/25/25 07/12/25 Unknown History Vertigo Exam Height,Weight and Vital Signs: Height 4 ft 11 in Weight 81.647 kg Assessment and Plan Assessment Anesthesia Assessment: Chart Reviewed Final Anesthetic Review Family History of Problems with Anesthesia: No History of Problems with Anesthesia: No Documented by User: Cal De Guzman MD 07/12/25 11:30 PMFSH Past Medical History Medical History Cervical polyp Thickened endometrium PMB (postmenopausal bleeding) Hiatal hernia Arthritis Anemia Renal stones Asthma HTN (hypertension) Functional capacity: independent ambulation Family History Family History Father Colon cancer Sister Uterine cancer Surgical History Surgical History History of extraction of renal calculus History of esophagogastroduodenoscopy (EGD) H/O colonoscopy Hx of appendectomy Hx of tubal ligation Social History Social History Household Members: Spouse and Family Alcohol intake: never Patient Tobacco Use Status: Former Tobacco user Use of substances other than those prescribed or required for medical reasons: No Are you DNR?: No Advance Directives: No Advance Directives Information Provided: Yes service: No Current occupational status: unemployed Meds Allergies Allergy/AdvReac Type Severity Reaction Status Date / Time Iodinated Contrast Media (IV Allergy Unknown Unknown Verified 07/12/25 09:40 Contrast Dye) iodine Allergy Unknown Unknown Verified 07/12/25 09:40 Home Medications ?Medication ?Instructions ?Recorded ?Confirmed ?Last Taken ?Type albuterol sulfate 90 mcg/actuation 90 mcg inhalation DAILY 01/17/23 07/12/25 Unknown History aerosol inhaler (Ventolin HFA) cetirizine 10 mg tablet 10 mg PO DAILY 01/17/23 07/12/25 Unknown History ferrous sulfate 325 mg (65 mg 325 mg PO DAILY 01/17/23 07/12/25 01/14/23 History iron) tablet,delayed release pantoprazole 40 mg tablet,delayed 40 mg PO DAILY 01/17/23 07/12/25 Unknown History release cholecalciferol (vitamin D3) 25 25 mcg PO DAILY 06/25/25 07/12/25 Unknown History mcg (1,000 unit) capsule fluticasone furoate 100 1 ea inhalation DAILY 06/25/25 07/12/25 Unknown History mcg-vilanterol 25 mcg/dose inhalation powder (Breo Ellipta) lisinopril 30 mg tablet 30 mg PO DAILY 06/25/25 07/12/25 07/12/25 08:30 History meclizine 25 mg tablet 25 mg PO BID PRN Dizziness Or 06/25/25 07/12/25 Unknown History Vertigo Exam Exam Date and Time: 07/12/2025 Airway Mallampati Class: II TM Dist: >3cm Neck ROM: Full Heart: rrr Lungs: ctab vesicular Assessment and Plan Assessment Anesthesia Assessment: Anesthesia Plan Discussed Final Anesthetic Review NPO: Yes ASA Class: III Final Preanesthetic Review: No Changes in Pt Med Stat, Consent Obtained/Reviewed and Anes Risks/Benef Reviewed Patient Risk: Intermediate Procedure Risk: Low Anesthetic Plan Anesthetic Plan: GA Disposition: Standard PACU
[2025-07-12 09:44] VITALS: BMI 36.4
[2025-07-12 09:46] VITALS: BP 152/63; PULSE 73; RESP 16; TEMP 35.9; O2SAT 98
[2025-07-12] MEDS: Lactated Ringers 1,000 ML 100 ML IVCONT (10:00)
--- NOTE | 2025-07-12 10:03 | MHC.SHP ---
Pre-Procedural Eval Section A - 24 Hr Update-Section A only Date of Service: 07/12/25 The patient is an INPATIENT: No Changes since office visit: No Cold of Flu in the past 2 weeks, No New Medical Problems, No Changes in Medication and No Patient answered all questions The patient has been examined within 24 hours of the surgical procedure. The History & Physical has been completed within 30 days and I have reviewed it.: Yes Section B - Complete if H&P > 30 days Chief Complaint: Postmenopausal bleeding Allergies: Allergies Allergy/AdvReac Type Severity Reaction Status Date / Time Iodinated Contrast Media (IV Allergy Unknown Unknown Verified 07/12/25 09:40 Contrast Dye) iodine Allergy Unknown Unknown Verified 07/12/25 09:40 Plan Diagnosis/Plan: Unchanged I have reviewed the history and physical and performed a pertinent physical examination on my patient. No changes have occurred unless specified. Time Spent With Patient Time: Total time managing care of this patient today ____ minutes.
--- NOTE | 2025-07-12 12:19 | P.OP_ITS ---
Operative Note Operative Note Date of Service: 07/12/25 Narrative: Preop diagnosis: Abnormal endometrium by ultrasound Operation: Diagnostic Hysteroscopy, Dilataion & Curettage Post Op Diagnosis: Normal endometrial cavity QBL: Minimal Anesthesia: GLMA Surgeon: Clifton Hammond MD Us Administrative Law Judge: None Complication: None Pathology: Endometrial Scrapings Procedure: The patient was put in the dorsal lithotomy position, scrubbed, and draped in the usual manner. A sterile speculum was inserted in the patient's vagina. The anterior lip of the cervix was grasped with a single tooth tenaculum. The cervix was dilated up to 5 mm, then the scope was inserted in the patient's uterus. Inspection revealed Normal endometrial cavity. The Myosure Reach device was used; the scope was removed from the endometrial cavity , sharp curettings was carried on with minimal to moderate amount of tissues retrieved. At the end of the procedure, all instruments were taken out of the patient uterine and vaginal cavity. The single tooth tenaculum was removed and homeostasis was assured using pressure,. The patient tolerated the procedure well and was transferred to the PACU in a stable condition.
--- NOTE | 2025-07-12 12:19 | P.BOP_ITS ---
Brief Operative Note Date of Service: 07/12/25 Pre-op diagnosis: Abnormal endometrium by ultrasound Post-op diagnosis: same (Normal endometrial cavity) Procedure: Hysteroscopy D&C Surgeon: Clifton Hammond MD Anesthesia: GLMA Was an Ross Carrier Driver used for this Procedure?: No Estimated blood loss (mL): 0 Pathology: other (Endometrial Scrapping) Condition: stable Disposition: PACU
[2025-07-12 12:31] VITALS: BP 151/65; PULSE 73; RESP 16; TEMP 36.1; O2SAT 99
[2025-07-12 12:36] VITALS: BP 159/53; PULSE 70; RESP 9; O2SAT 100
[2025-07-12 12:41] VITALS: BP 138/79; PULSE 69; RESP 9; O2SAT 100
[2025-07-12 12:46] VITALS: BP 146/66; PULSE 69; RESP 12; O2SAT 97
[2025-07-12 13:01] VITALS: BP 153/85; PULSE 68; RESP 14; TEMP 36.1; O2SAT 95
== END 2025-07-12 13:56 | disposition home or self-care (01) ==
PROVIDERS: PCP Internal Medicine Medical Oncology; Visit Provider Obstetrics & Gynecology
PROC: 0UDB8ZZ Extraction of Endometrium, Via Natural or Artificial Opening Endoscopic (ICD-10-PCS; CPT 58558; principal; 2025-07-12 10:50)
DX: N95.0 Postmenopausal bleeding (principal); N84.1 Polyp of cervix uteri; N88.8 Other specified noninflammatory disorders of cervix uteri; I10 Essential (primary) hypertension; J45.909 Unspecified asthma, uncomplicated; D64.9 Anemia, unspecified; Z87.442 Personal history of urinary calculi; Z91.041 Radiographic dye allergy status; Z98.51 Tubal ligation status; Z56.0 Unemployment, unspecified; Z79.899 Other long term (current) drug therapy
CPT/HCPCS: 58558; 88305; J0330; J1100; J1885; J2003; J2371; J2405; J2704; J3010

== ENCOUNTER → 2025-07-12 09:13 | Outpatient (BNV) | payer MEDICAID, SELFPAY | PROVIDERS: PCP Internal Medicine Medical Oncology; Visit Provider Obstetrics & Gynecology | DX: N85.9 Noninflammatory disorder of uterus, unspecified (principal) | CPT/HCPCS: 58558 ==

== ENCOUNTER 2025-07-30 10:13 | Outpatient (AMB) | payer MEDICAID, SELFPAY ==
--- OUTSIDE RECORDS SUMMARY | 2024-08-15 05:00 | XMS_ITS ---
Author Organization [facility] Address [address] [place] [id number] Care Team Providers Care Metal Box Maker Name Role Phone Carmelo Ching MD Primary Care Provider Unavailab Selwyn Gutierrez Jr REASON FOR VISIT fe def anemia Encounters Encounter Location Date Provider Diagnosis [facility] [address] [place] [id number] 08/15/2024 Selwyn Leonard Jr Plan Of Treatment Next Appt Details Provider Name:Selwyn stewart Jr, 08/06/2025 07:30:00 AM, [address] [place] [address] , [place], [place], [phone], Progress Notes * LI BURNSDOB:1960 (64 yo F)Acc No.[id number]:08/15/2024 Progress Notes Patient: LI COLLIER Provider: Bar Leonard MD :1960 A ge:63 Y S ex:Female Date:08/15/2024 Address:[address] [place], [place] [id number] Pcp:Carmelo Ching MD Subjective: * Chief Complaints: * 1 . Fe def anemia. * Medical History: Objective: * Vitals: Assessment: Plan: * Treatment: * * The named appointment provid er may or may not be the originator of this progress note, and it is not deemed complete until electronically signed by the appointment provider. Sign off status: Pending * Provider: Bar Leonard MD Date: 10/15/2023 Generated for Sarahi sanchez/Lisy/Rosalina on: 09/29/2024 11:45 AM EST
--- OUTSIDE RECORDS SUMMARY | 2024-11-07 04:00 | XMS_ITS ---
Author Organization [facility] Address [address] [place] [id number] Care Team Providers Care Family Assessment Worker Name Role Phone Carmelo Ching MD Primary Care Provider Unavailab yajaira Leonard Jr, Selwyn Unavailable REASON FOR VISIT Patient presents today for a SCREENING COLON Encounters Encounter Location Date Provider Diagnosis [facility] [address] [address] 11/07/2024 Selwyn Leonard Jr Plan Of Treatment Next Appt Details Provider Name:Selwyn stewart Jr, 08/06/2025 07:30:00 AM, [address] [place] [address], [phone], Progress Notes * LI BURNSDOB:1960 (64 yo F)Acc No.[id number]:11/07/2024 Progress Notes Patient: LI COLLIER Provider: Bar Leonard MD :1960 A ge:64 Y S ex:Female Date:11/07/2024 Address:[address] [place], [place] [id number] Pcp:Carmelo Ching MD Subjective: * Chief Complaints: * 1 . Patient presents today for a SCREENING COLON. * Medical History: Objective: * Vitals: Assessment: Plan: * Treatment: * * The named appointment provid er may or may not be the originator of this progress note, and it is not deemed complete until electronically signed by the appointment provider. Sign off status: Pending * Provider: Bar Leonard MD Date: 0 11/07/2024 Generated for Sarahi sanchez/Lisy/Rosalina on: 1 09/29/2024 11:45 AM EST
--- OUTSIDE RECORDS SUMMARY | 2025-01-23 08:11 | XMS_ITS ---
Author Organization Carmelo Ching III, MD Address [address] [place] [address] [place] [address] Care Team Providers Care Manager Application Name Role Phone Dr. Carmelo Ching III Primary Care Provider REASON FOR VISIT Referral request Social History Sex Assigned At : Social History Observation Description Sex Assigned At Female Encounters Encounter Location Date Provider Diagnosis Carmelo Ching III, MD [address] [place] [address] [place] [address] 01/23/2025 Carmelo Ching Plan Of Treatment Next Appt Details Provider Name:Carmelo Ching , 08/02/2025 10:45:00 AM, [address] [place] [address] [place], [address], Provider Name:Carmelo Ching , 01/03/2026 04:00:00 PM, [address] [place] [address] [place], [address], Progress Notes * Natasha SCHUSTERDOB:1960 (64 yo F)Acc No.[id number]:01/23/2025 Patient: Natasha COLLIER :1960 A ge:64 Y S ex:Female Address:[address] [place] [address], [address] * true * Date: Generated for Niloi daniel/Lisy/eTransmitting on: 09/29/2024 11:45 AM EST
--- OUTSIDE RECORDS SUMMARY | 2025-02-04 08:03 | XMS_ITS ---
Author Organization Carmelo Ching III, MD Address [address] [place] [address] [place] [address] Care Team Providers Care Fur Blowing Machine Attendant Name Role Phone Dr. Carmelo Ching III Primary Care Provider [phone] REASON FOR VISIT Message Social History Sex Assigned At : Social History Observation Description Sex Assigned At Female Encounters Encounter Location Date Provider Diagnosis Carmelo Ching III, MD [address] [place] [address] [place] [address] 02/04/2025 Carmelo Ching Breast lump N63.0 Assessments Encounter Date Diagnosis (ICD Code) Assessment Notes Treatment Notes Treatment Clinical Notes 02/04/2025 Breast lump (ICD-10 - N63.0) Plan Of Treatment Pending Test Test Name Order Date MM diagnostic mammo BI 02/04/2025 breast LT limited 02/04/2025 Next Appt Details Provider Name:Carmelo Ching , 08/02/2025 10:45:00 AM, [address] [place] [address] [place], [address], Provider Name:Carmelo Ching , 01/03/2026 04:00:00 PM, [address] [place] [address] [place], [address], Progress Notes * Natasha SCHUSTERDOB:1960 (64 yo F)Acc No.[id number]:02/04/2025 Patient: Natasha COLLIER :1960 A ge:64 Y S ex:Female Address:[address] [place] [address] Subjective: * Chief Complaints: * M essage * Medical History: * Surgical History: * Hospitalization/Major Diagno stic Procedure: * Medications: Objective: * Vitals: * Physical Examination: Assessment: * Assessment: 1. B reast lump - N63.0 Plan: * Treatment: * Procedure Codes: * true * Date: Generated for Sarahi sanchez/Lisy/eTransmitting on: 09/29/2024 11:46 AM EST
--- OUTSIDE RECORDS SUMMARY | 2025-02-13 04:40 | XMS_ITS ---
Author Organization [facility] Address [address] [place] [address] Care Team Providers Care Aerobics Teacher Name Role Phone Carmelo Ching MD Primary Care Provider Unavailab Selwyn Gutierrez Jr [phone] REASON FOR VISIT SCREENING COLON Encounters Encounter Location Date Provider Diagnosis [facility] [address] [facility] [address] [place] [address] 02/13/2025 Selwyn Leonard Jr Plan Of Treatment Next Appt Details Provider Name:Selwyn stewart Jr, 08/06/2025 07:30:00 AM, [address] [place] [address] , [place], [place], [phone], Progress Notes * LI BURNSDOB:1960 (64 yo F)Acc No.[id number]:02/13/2025 Progress Notes Patient: LI COLLIER Provider: Bar Leonard MD :1960 A ge:64 Y S ex:Female Date:02/13/2025 Address:[address] [place] [address] Pcp:Carmelo Ching MD Subjective: * Chief Complaints: * 1 . SCREENING COLON. * Medical History: Objective: * Vitals: Assessment: Plan: * Treatment: * * The named appointment provid er may or may not be the originator of this progress note, and it is not deemed complete until electronically signed by the appointment provider. Sign off status: Pending * Provider: Bar Leonard MD Date: 0 02/13/2025 Generated for Sarahi sanchez/Lisy/Rosalina on: 1 09/29/2024 11:46 AM EST
--- OUTSIDE RECORDS SUMMARY | 2025-02-22 05:45 | XMS_ITS ---
Author Organization Carmelo Ching III, MD Address [address] [place] [address] [place] [address] Care Team Providers Care Erp Analyst Name Role Phone Dr. Carmelo Ching III Primary Care Provider Reason For Referral Reason Consult and Treat Diagnosis 1 Large hiatal hernia (K44.9) Referral Organization Carmelo Ching III, MD Referring Provider First Name Carmelo Referring Provider Last Name Humza Referring Provider Speciality Internal M edicine Ref[facility] Provider [facility] Referred Provider Specialty General Surg mariela General Notes Cathryn Alva 05/2025 11:07:00 AM >Referral FaxedAlistair Amber 02/25/2025 11:23:51 AM > Anna is [place] [facility] [place], she stated they do not treat Hiatal Hernias there. Stated patient could be referred [place] [facility] Referral Priority Routine Referral Appointment Date 04/23/2025 REASON FOR VISIT hiatal hernia- pain comes and goes x 1 year, Abdominal pain, Recent endoscopy, Positive PARI, Asthma, Allergic rhinitis, Hyperlipidemia, Arthritis left knee, Marked obesity Medications Medication SIG (Take, Route, Frequency, Duration) Notes Start Date End Date Status Ventolin HFA 108 (90 Base) MCG/ACT Inhalation Active Nebulizer - Use every 4 hours As needed for asthma 07/05/2024 Active EpiPen 2-Ramón 0.3 MG/0.3ML as directed Injection as needed for allergic reaction 05/23/2024 Active Ferrous Sulfate 325 (65 Fe) MG Oral Active Pantoprazole Sodium 40 MG Oral Active Albuterol Sulfate (2.5 MG/3ML) 0.083% 3 mL as needed Inhalation every 6 hrs As needed for Asthma J45.909 Active Asthma 07/05/2024 Active Melatonin 5 MG 1 tablet in the evening Orally Once a day Active Venlafaxine HCl 50 MG 1 tablet with food Orally Once a day 09/23/2023 Active Meclizine HCl 25 MG 1 tablet Orally every 12 hrs As needed 10/17/2023 Active Levocetirizine Dihydrochloride 5 MG Oral Active Nebulizer Cup/Tubing - Use every 4 hours As needed for Asthma 07/05/2024 Active Nebulizer Mask Adult - Use every 4 hours As needed for asthma 07/05/2024 Active Social History Tobacco Use: Social History Observation Description Date Details (start date - stop date) Former Smoker NA - NA Sex Assigned At : Social History Observation Description Sex Assigned At Female Tobacco Control (Standard) Question Answer Notes Tobacco use: Former smoker How long has it been since you last smoked? Marc ter than 10 years Additional Findings: Tobacco non-user Ex-cigaret te smoker Problems Problem Type SNOMED Code ICD Code Onset Dates Problem Status W/U Status Risk Notes Problem 64204182 Epigastric pain (R10.13) Active confirmed We have reques melisa the records of the recent gastroenterology consultation. No change in her medications was made. Her weight is stable and her nutrition seems good. She has had no nausea vomiting or diarrhea. The pain today was reproduced by pressure over scar in the upper anterior abdominal wall. This raises a question of nerve entrapment. Vital Signs Blood pressure systolic 110 mm Hg 02/23/20 25 Blood pressure diastolic 83 mm Hg 025 Heart Rate 133 /min 02/22/2025 Height 56 in in 02/22/2025 Weight 180 lbs 02/22/2025 BMI 40.35 kg/m2 02/22/2025 Oximetry 98.1 % 02/22/2025 Encounters Encounter Location Date Provider Diagnosis Carmelo Ching III, MD [address] [place] [address] DR [place], [place] [id number] 02/22/2025 Carmelo Ching Epigastric pain R10. 13 ; Iron deficiency anemia, unspecified D50.9 ; ANNA1 antibody positive R76.0 ; Intermittent asthma, unspecified asthma severity, unspecified whether complicated J45.20 ; Non-seasonal allergic rhinitis due to other allergic trigger J30.89 ; Hyperlipidemia, unspecified hyperlipidemia type E78.5 ; Former smoker Z87.891 ; Morbid obesity E66.01 and History of depression Z86.59 Assessments Encounter Date Diagnosis (ICD Code) Assessment Notes T reatment Notes Treatment Clinical Notes 02/22/2025 Epigastric pain (ICD-10 - R10.13) We have requested the records of the recent gastroenterology consultation. No change in her medications was made. Her weight is stable and her nutrition seems good. She has had no nausea vomiting or diarrhea. The pain today was reproduced by pressure over scar in the upper anterior abdominal wall. This raises a question of nerve entrapment. 02/22/2025 Iron deficiency anemia, unspecified (ICD-10 - D50.9) She was continued on the iron therapy. Her ferritin is 212 and her hematocrit is normal. The mean cell volume is normal. The iron deficiency has resolved. 02/22/2025 ANNA1 antibody positive (ICD-10 - R76.0) This will be repeated. There is an inflammatory process in progress. 02/22/2025 Intermittent asthma, unspecified asthma severity, unspecified whether complicated (ICD-10 - J45.20) She was experiencing some mild inspiratory wheezing today but seemed comfortable breathing. Her current medications were continued. 02/22/2025 Non-seasonal allergic rhinitis due to other allergic trigger (ICD-10 - J30.89) We discussed the use of non-drowsy antihistamines now that pollen season is upon us. She will reconsult with me if her symptoms are not alleviated. 02/22/2025 Hyperlipidemia, unspecified hyperlipidemia type (ICD-10 - E78.5) She is stable at this time. Her lipids are being measured several times a year. I have recommended aggressive weight loss diet low animal fat. 02/22/2025 Former smoker (ICD-10 - Z87.891) She is highly motivated to remain abstinent from tobacco. She has a plan to prevent relapse in times of illness or stress. 02/22/2025 Morbid obesity (ICD-10 - E66.01) Her body mass index is 39. We discussed her weight loss strategy. We reviewed her diet and nutrition. We made a plan to lose weight at a rate of one half of a pound per week through a diet restricted in fat calories and sodium. 02/22/2025 History of depression (ICD-10 - Z86.59) There was no sign of active depression on today's examination. Plan Of Treatment Medication Medication Name Sig Start Date Stop Date Notes Ventolin HFA 108 (90 Base) MCG/ACT Inhalation Nebulizer - Use every 4 hours 07/05/2024 EpiPen 2-Ramón 0.3 MG/0.3ML as directed In jection as needed for allergic reaction 05/23/2024 Ferrous Sulfate 325 (65 Fe) MG Oral Pantoprazole Sodium 40 MG Oral Albuterol Sulfate (2.5 MG/3ML) 0.083% 3 mL as needed Inhalation every 6 hrs 07/05/2024 J45.909 Active Asthma Melatonin 5 MG 1 tablet in the evening Orally Once a day Venlafaxine HCl 50 MG 1 tablet with food Orally Once a day 09/23/2023 Meclizine HCl 25 MG 1 tablet Orally ever y 12 hrs 10/17/2023 Levocetirizine Dihydrochloride 5 MG Oral Nebulizer Cup/Tubing - Use every 4 hours 07/05/2024 Nebulizer Mask Adult - Use every 4 hours 07/05/2024 Referrals Referral Date Details 02/25/2025 02/25/2025, Consult and Treat, General Surgery [facility] Appt Details Follow Up: 2 Weeks, Reason: ov Provider Name:Carmelo Ching , 08/02/2025 10:45:00 AM, [address] [place] [address] [address], [place], [address], Provider Name:Carmelo Ching , 01/03/2026 04:00:00 PM, [address] [place] [address] [address], [place], [address], Progress Notes * Natasha SCHUSTERDOB:1960 (64 yo F)Acc No.[id number]:02/22/2025 Progress Notes Patient: Natasha COLLIER Provider: Alonso Ching MD :1960 A ge:64 Y S ex:Female Date:02/22/2025 Address:[address] [place] [id number] Subjective: * Chief Complaints: * H iatal hernia- pain comes and goes x 1 yearAbdominal painRecent endoscopyPositive ANAAsthmaAllergic rhinitisHyperlipidemiaArthritis left kneeMarked obesity * HPI: C OVID-19 Screening: She continues to have intermittent epigastric abdominal pain.? He recently saw Dr. Carmelo Chung, gastroenterology, and she says she had an upper endoscopy. She says she was so she has a hernia but we do not have the specific information. We have requested the records. The arthritis in her knee is stable and she is able to ambulate. She is able to conduct her daily activities of daily life. Her seasonal allergies are tolerable.Her blood work from December 14, 2024 was reviewed with her. Questions H ave you had any new onset fever, chills, cough, congestion, sore throat, shortness of breath, muscle aches? N o * ROS: G eneral/Constitutional: pain U pper abdomen, and, sure, related to food. C hills d enies. F atigue a dmits. F ever d enies. E NT: Decreased hearing d enies. R espiratory: Cough d enies. C ardiovascular: Chest pain with exertion d enies. D yspnea on exertion?denies. S hortness of breath d enies. G astrointestinal: Constipation o ccasional. D ecreased appetite d enies. D iarrhea d enies. H eartburn o ccasional. N ausea d enies. R ectal bleeding d enies. V omiting d enies. H ematology: bruising d enies. p etechiae d enies. S wollen glands n one have been noted. G enitourinary: Frequent urination d enies. M usculoskeletal: Muscle aches d enies. P ainful joints d enies. S ciatica d enies. W eakness d enies. S kin: Itching d enies. R heike d enies. S kin lesion(s)?denies. N eurologic: Difficulty speaking d enies. D izziness d enies.?Headache d enies. L ow back pain d enies. P sychiatric: Depressed mood d enies. * Medical History: * Surgical History: K medhat stone removed No history Appendectomy * Hospitalization/Major Diagno stic Procedure: N o history * Family History: F ather: , colon cancer, diagnosed with Cancer. M other: , Unknown. C lj: alive. D pema(s): alive. She is not aware of any inherited cancer family syndromes. She is not aware of any family history of mental illness, addiction, or substance use disorder. * Social History: T obacco Use: T obacco Control (Standard) T obacco use: F ormer smoker H ow long has it been since you last smoked??Greater than 10 years A dditional Findings: Tobacco non-user E x-cigarette smoker * Medications: T akingMeclizine HCl 25 MG Tablet 1 tablet Orally every 12 hrs As neededVenlafaxine HCl 50 MG Tablet 1 tablet with food Orally Once a day Melatonin 5 MG Tablet 1 tablet in the evening Orally Once a day Ventolin HFA 108 (90 Base) MCG/ACT Aerosol Solution Inhalation Pantoprazole Sodium 40 MG Tablet Delayed Release Oral Ferrous Sulfate 325 (65 Fe) MG Tablet Delayed Release Oral EpiPen 2-Ramón 0.3 MG/0.3ML Solution Auto-injector as directed Injection as needed for allergic reaction Nebulizer - Miscellaneous Use every 4 hours As needed for asthmaNebulizer Mask Adult - Miscellaneous Use every 4 hours As needed for asthmaNebulizer Cup/Tubing - Device Use every 4 hours As needed for AsthmaAlbuterol Sulfate (2.5 MG/3ML) 0.083% Nebulization Solution 3 mL as needed Inhalation every 6 hrs As needed for Asthma, Notes to Pharmacist: J45.909 Active AsthmaLevocetirizine Dihydrochloride 5 MG Tablet Oral Medication List reviewed and reconciled with the patientTaking Meclizine HCl 25 MG Tablet 1 tablet Orally every 12 hrs As neededTaking Venlafaxine HCl 50 MG Tablet 1 tablet with food Orally Once a day Taking Melatonin 5 MG Tablet 1 tablet in the evening Orally Once a day Taking Ventolin HFA 108 (90 Base) MCG/ACT Aerosol Solution Inhalation Taking Pantoprazole Sodium 40 MG Tablet Delayed Release Oral Taking Ferrous Sulfate 325 (65 Fe) MG Tablet Delayed Release Oral Taking EpiPen 2-Ramón 0.3 MG/0.3ML Solution Auto-injector as directed Injection as needed for allergic reaction Taking Nebulizer - Miscellaneous Use every 4 hours As needed for asthmaTaking Nebulizer Mask Adult - Miscellaneous Use every 4 hours As needed for asthmaTaking Nebulizer Cup/Tubing - Device Use every 4 hours As needed for AsthmaTaking Albuterol Sulfate (2.5 MG/3ML) 0.083% Nebulization Solution 3 mL as needed Inhalation every 6 hrs As needed for Asthma, Notes to Pharmacist: J45.909 Active AsthmaTaking Levocetirizine Dihydrochloride 5 MG Tablet Oral Medication List reviewed and reconciled with the patient Objective: * Vitals: H t: 56 in, Wt: 180, BMI:40.35, BP: 110/83, HR: 133, Oxygen sat %: 98.1, Ht-cm: 142.24, Wt-k.65. * Examination: G eneral Examination: GENERAL APPEARANCE: p leasant, well nourished, well developed, in no acute distress, calm and relaxed, morbidly obese, woman. HEAD: a traumatic, normocephalic. EYES: e radha, perrla, anicteric, conjugate. EARS: n ormal. NOSE: s eptum intact, congested. ORAL CAVITY: n ormal, unremarkable. NECK/THYROID: n o jugular venous distention, no carotid bruit, thyroid normal. LYMPH NODES: n o enlarged lymph nodes,spleen normal. SKIN: n o suspicious lesions, anicteric. HEART: n o clicks, gallops, murmurs, or rubs, regular rhythm, S1, S2 normal, no s3, or vascular bruits. LUNGS: c lear to auscultation . BREASTS: N ot examined. ABDOMEN: b owel sounds normal, no ascites, no organomegaly, no mass, morbid obesity, Tenderness to palpation around her abdomen where there is a scar. RECTAL EXAM: n ot examined. MUSCULOSKELETAL: e xtremities unremarkable, no clubbing, cyanosis or edema. PERIPHERAL PULSES: n ormal. NEUROLOGIC: a lert and oriented, cranial nerves 2-12 grossly intact, deep tendon reflexes 2+ symmetrical, motor strength normal upper and lower extremities, sensory exam intact. PSYCH: a lert, oriented. Assessment: * Assessment: 1. E pigastric pain - R10.13 (Primary) N otes :We have requested the records of the recent gastroenterology consultation. No change in her medications was made. Her weight is stable and her nutrition seems good. She has had no nausea vomiting or diarrhea. The pain today was reproduced by pressure over scar in the upper anterior abdominal wall. This raises a question of nerve entrapment. 2 . I [place] deficiency anemia, unspecified - D50.9 N otes :She was continued on the iron therapy. Her ferritin is 212 and her hematocrit is normal. The mean cell volume is normal. The iron deficiency has resolved. 3 . A NNA1 antibody positive - R76.0 N otes :This will be repeated. There is an inflammatory process in progress. 4 . I ntermittent asthma, unspecified asthma severity, unspecified whether complicated - J45.20 N otes :She was experiencing some mild inspiratory wheezing today but seemed comfortable breathing. Her current medications were continued. 5 . N on-seasonal allergic rhinitis due to other allergic trigger - J30.89? Notes :We discussed the use of non-drowsy antihistamines now that pollen season is upon us. She will reconsult with me if her symptoms are not alleviated. 6 . H yperlipidemia, unspecified hyperlipidemia type - E78.5 N otes :She is stable at this time. Her lipids are being measured several times a year. I have recommended aggressive weight loss diet low animal fat. 7 . F ormer smoker - Z87.891 N otes :She is highly motivated to remain abstinent from tobacco. She has a plan to prevent relapse in times of illness or stress. 8 . M orbid obesity - E66.01 N otes :Her body mass index is 39. We discussed her weight loss strategy. We reviewed her diet and nutrition. We made a plan to lose weight at a rate of one half of a pound per week through a diet restricted in fat calories and sodium. 9 . H istory of depression - Z86.59 N otes :There was no sign of active depression on today's examination. Plan: * Treatment: * Procedure Codes: 9 4760 MEASURE BLOOD OXYGEN LEVEL * Preventive Medicine: Counseling: C are goal follow-up plan: Counseling for abnormal BMI given Y es Above Normal BMI Follow-up D ietary management education, guidance, and counseling, Dietary needs education, Exercise promotion: strength training, Exercise promotion: stretching, Feeding regime, Giving encouragement to exercise, Lifestyle education regarding diet, Nutrition / feeding management, Nutrition therapy, Prescribed activity/exercise education, Prescribed diet education, Prescribed dietary intake, Special diet education, Weight monitoring , Intervention, Order not done: Medical or Other reason not done S moking/Tobacco Use Patient counseled on the dangers of tobacco use and urged to quit. 0 02/22/2025 * Follow Up: 2 Weeks (Reason: ov) * Images: * Sign off status: Completed true * Provider: Alonso Ching MD Date: 0 02/22/2025 Generated for Niloi daniel/Lisy/Rosalina on: 1 09/29/2024 11:45 AM EST History and Physical Notes * HPI (History of Present Illness) Category Sub-Category Detail Notes COVID-19 Screening Questions Have you had any new onset fever, chills, cough, congestion, sore throat, shortness of breath, muscle aches?: No Examination Category Sub-Category Detail Notes General Examination GENERAL APPEARANCE: pleasant , well nourished, well developed, in no acute distress, calm and relaxed, morbidly obese, woman HEAD: atraumatic, normocep halic EYES: eomi, perrla, anicte sourav, conjugate EARS: normal NOSE: septum intact, conge sted NECK/THYROID: no jugular venous di stention, no carotid bruit, thyroid normal HEART: no clicks, gallops, murmurs, or rubs, regular rhythm, S1, S2 normal, no s3, or vascular bruits LUNGS: clear to auscultatio n ABDOMEN: bowel sounds normal, no ascites, no organomegaly, no mass, morbid obesity, Tenderness to palpation around her abdomen where there is a scar NEUROLOGIC: alert and oriented, cranial nerves 2-12 grossly intact, deep tendon reflexes 2+ symmetrical, motor strength normal upper and lower extremities, sensory exam intact SKIN: no suspicious lesion s, anicteric PERIPHERAL PULSES: normal BREASTS: Not examined MUSCULOSKELETAL: extremities unremark able, no clubbing, cyanosis or edema LYMPH NODES: no enlarged lymph no matt,spleen normal RECTAL EXAM: not examined PSYCH: alert, oriented ORAL CAVITY: normal, unremarkable Consultation Request Notes Referral Date Referring Provider Referred Provider Not es 02/25/2025 Carmelo Ching [facility], General Surgery C onsult and Treat
--- OUTSIDE RECORDS SUMMARY | 2025-03-06 08:24 | XMS_ITS ---
Author Organization Carmelo Ching III, MD Address [address] [place] [address] [place] [address] Care Team Providers Care Snack Bar Cashier Name Role Phone Dr. Carmelo Ching III Primary Care Provider REASON FOR VISIT elevated potassium level Social History Sex Assigned At : Social History Observation Description Sex Assigned At Female Encounters Encounter Location Date Provider Diagnosis Carmelo Ching III, MD [address] [place] [address] [place] [address] 03/06/2025 Carmelo Ching Plan Of Treatment Next Appt Details Provider Name:Carmelo Ching , 08/02/2025 10:45:00 AM, [address] [place] [address] [place], [address], Provider Name:Carmelo Ching , 01/03/2026 04:00:00 PM, [address] [place] [address] [place], [address], Progress Notes * Natasha SCHUSTERDOB:1960 (64 yo F)Acc No.[id number]:03/06/2025 Patient: Natasha COLLIER :1960 A ge:64 Y S ex:Female Address:[address] [place] [address], [address] * true * Date: Generated for Niloi daniel/Lisy/eTransmitting on: 1 09/29/2024 11:45 AM EST
--- OUTSIDE RECORDS SUMMARY | 2025-03-08 11:41 | XMS_ITS ---
Author Organization Carmelo Ching III, MD Address [address] [place] [address] [place] [address] Care Team Providers Care Automated Logistics Specialist Name Role Phone Dr. Carmelo Ching III Primary Care Provider [phone] REASON FOR VISIT Rx change request Social History Sex Assigned At : Social History Observation Description Sex Assigned At Female Encounters Encounter Location Date Provider Diagnosis Carmelo Ching III, MD [address] [place] [address] [place] [address] 03/08/2025 Carmelo Ching Plan Of Treatment Next Appt Details Provider Name:Carmelo Ching , 08/02/2025 10:45:00 AM, [address] [place] [address] [place], [address], Provider Name:Carmelo Ching , 01/03/2026 04:00:00 PM, [address] [place] [address] [place], [address], Progress Notes * Natasha SCHUSTERDOB:1960 (64 yo F)Acc No.[id number]:03/08/2025 Patient: Natasha COLLIER :1960 A ge:64 Y S ex:Female Address:[address] [place] [address], [address] * true * Date: Generated for Printi daniel/Fafredyg/eTransmitting on: 1 09/29/2024 11:45 AM EST
--- OUTSIDE RECORDS SUMMARY | 2025-03-08 11:56 | XMS_ITS ---
Author Organization Carmelo Ching III, MD Address [address] [place] [address] [place] [address] Care Team Providers Care Cafeteria Counter Attendant Name Role Phone Dr. Carmelo Ching III Primary Care Provider [phone] Medications Medication SIG (Take, Route, Frequency, Duration) Notes Start Date End Date Status Metoprolol Succinate 25 MG 1 capsule Ora lly Once a day for 90 days 03/08/2025 Active Social History Sex Assigned At : Social History Observation Description Sex Assigned At Female Encounters Encounter Location Date Provider Diagnosis Carmelo Ching III, MD [address] [place] [address] [place] [address] 03/08/2025 Carmelo Ching Plan Of Treatment Medication Medication Name Sig Start Date Stop Date Notes Metoprolol Succinate 25 MG 1 capsule Ora lly Once a day for 90 days 03/08/2025 Next Appt Details Provider Name:Carmelo Ching , 08/02/2025 10:45:00 AM, [address] [place] [address] [place], [address], Provider Name:Carmelo Ching , 01/03/2026 04:00:00 PM, [address] [place] [address] [place], [address], Progress Notes * Natasha SCHUSTERDOB:1960 (64 yo F)Acc No.[id number]:03/08/2025 Patient: Natasha COLLIER :1960 A ge:64 Y S ex:Female Address:[address] [place] [address], [address] * Refills Start Metoprolol Succinate Capsule ER 24 Hour Sprinkle, 25 MG, Orally, 90 Capsule, 1 capsule, Once a day, 90 days, Refills=3 * true * Date: Generated for Sarahi sanchez/Lisy/Uniqueitting on: 09/29/2024 11:46 AM EST
--- OUTSIDE RECORDS SUMMARY | 2025-04-02 05:00 | XMS_ITS ---
Author Organization [facility] Address [address] [place] [address] Care Team Providers Care Bellhop Service Captain Name Role Phone Carmelo Ching MD Primary Care Provider Unavailab Selwyn Gutierrez Jr [phone] REASON FOR VISIT abdominal pain, Encounters Encounter Location Date Provider Diagnosis [facility] [address] [place] [id number] 04/02/2025 Selwyn Leonard Jr Plan Of Treatment Next Appt Details Provider Name:Selwyn stewart Jr, 08/06/2025 07:30:00 AM, [address] [place] [address], [phone], Progress Notes * ZAIDADEE LORINANGELDOB:1960 (64 yo F)Acc No.[id number]:04/02/2025 EGD and COL/MAC Patient: LI COLLIER Provider: Bar Leonard MD :1960 A ge:64 Y S ex:Female Date:04/02/2025 Address:[address] [place] [address] Pcp:Carmelo Ching MD Subjective: * Chief Complaints: * 1 . Abdominal pain,. * Medical History: Objective: * Vitals: Assessment: Plan: * Treatment: * * The named appointment provid er may or may not be the originator of this progress note, and it is not deemed complete until electronically signed by the appointment provider. Sign off status: Pending * Provider: Bar Leonard MD Date: 0 04/02/2025 Generated for Sarahi sanchez/Lisy/Rosalina on: 1 09/29/2024 11:44 AM EST
--- OUTSIDE RECORDS SUMMARY | 2025-04-03 09:30 | XMS_ITS ---
Author Organization Carmelo Ching III, MD Address [address] [place] [address] [place] [address] Care Team Providers Care Booster Pump Oiler Name Role Phone Dr. Carmelo Ching III Primary Care Provider Allergies Allergen (clinical drug ingredient) Drug/Non Drug Allergy documented on EMR Reaction Allergy Type Onset Date Status Dog dander Dog Dander Unknown Allergy Active Contrast Allergy PreMed Pack Unknown Drug Allergy Active Iodine Unknown Drug Allergy Active REASON FOR VISIT Iron deficiency, Asthma, Allergic rhinitis, Hyperlipidemia, Depression, Hiatal hernia, Obesity Medications Medication SIG (Take, Route, Frequency, Duration) Notes Start Date End Date Status Albuterol Sulfate (2.5 MG/3ML) 0.083% 3 mL as needed Inhalation every 6 hrs As needed for Asthma J45.909 Active Asthma 07/05/2024 Active Levocetirizine Dihydrochloride 5 MG Oral Active Nebulizer - Use every 4 hours As needed for asthma 07/05/2024 Active Nebulizer Mask Adult - Use every 4 hours As needed for asthma 07/05/2024 Active Nebulizer Cup/Tubing - Use every 4 hours As needed for Asthma 07/05/2024 Active Melatonin 5 MG 1 tablet in the evening Orally Once a day Active Ventolin HFA 108 (90 Base) MCG/ACT Inhalation Active Pantoprazole Sodium 40 MG Oral Active Ferrous Sulfate 325 (65 Fe) MG Oral Active EpiPen 2-Ramón 0.3 MG/0.3ML as directed Injection as needed for allergic reaction 05/23/2024 Active Meclizine HCl 25 MG 1 tablet Orally every 12 hrs As needed 10/17/2023 Active Venlafaxine HCl 50 MG 1 tablet with food Orally Once a day 09/23/2023 Active Metoprolol Succinate 25 MG 1 capsule Orally Once a day 03/08/2025 Active Social History Tobacco Use: Social History [...] Additional Findings: Tobacco non-user Ex-cigaret te smoker Vital Signs Temperature 97.7 degrees Fahrenheit 04/03/20 25 Blood pressure systolic 148 mm Hg 04/03/20 25 Blood pressure diastolic 90 mm Hg 025 Heart Rate 74 /min 04/03/2025 Height 56 in in 04/03/2025 Weight 181 lbs 04/03/2025 BMI 40.57 kg/m2 04/03/2025 Encounters Encounter Location Date Provider Diagnosis Carmelo Ching III, MD [address] [place] [address] [place] [address] 04/03/2025 Carmelo Ching ANNA1 antibody posit danny R76.0 ; Morbid obesity E66.01 ; Iron deficiency anemia, unspecified D50.9 ; Intermittent asthma, unspecified asthma severity, unspecified whether complicated J45.20 ; Non-seasonal allergic rhinitis due to other allergic trigger J30.89 ; Hyperlipidemia, unspecified hyperlipidemia type E78.5 ; Former smoker Z87.891 and Urinary tract infection in female N39.0 Assessments Encounter Date Diagnosis (ICD Code) Assessment Notes Treat ment Notes Treatment Clinical Notes 04/03/2025 ANNA1 antibody positive (ICD-10 - R76.0) This will be repeated. There is an inflammatory process in progress. 04/03/2025 Morbid obesity (ICD-10 - E66.01) Her body mass index is over 40. We discussed her weight loss strategy. We reviewed her diet and nutrition. We made a plan to lose weight at a rate of one half of a pound per week through a diet restricted in fat calories and sodium. 04/03/2025 Iron deficiency anemia, unspecified (ICD-10 - D50.9) She was continued on the iron therapy. Her ferritin is 212 and her hematocrit is normal. The mean cell volume is normal. The iron deficiency has resolved. 04/03/2025 Intermittent asthma, unspecified asthma severity, unspecified whether complicated (ICD-10 - J45.20) She was experiencing some mild inspiratory wheezing today but seemed comfortable breathing. Her current medications were continued. 04/03/2025 Non-seasonal allergic rhinitis due to other allergic trigger (ICD-10 - J30.89) We discussed the use of non-drowsy antihistamines now that pollen season is upon us. She will reconsult with me if her symptoms are not alleviated. 04/03/2025 Hyperlipidemia, unspecified hyperlipidemia type (ICD-10 - E78.5) She is stable at this time. Her lipids are being measured several times a year. I have recommended aggressive weight loss diet low animal fat. 04/03/2025 Former smoker (ICD-10 - Z87.891) She is highly motivated to remain abstinent from tobacco. She has a plan to prevent relapse in times of illness or stress. 04/03/2025 Urinary tract infection in female (ICD-10 - N39.0) She has symptoms and back pain and was given an antibiotic. She is having frequent urinary tract infections and the cause will be evaluated. Plan Of Treatment Medication Medication Name Sig Start Date Stop Date Notes Albuterol Sulfate (2.5 MG/3ML) 0.083% 3 mL as needed Inhalation every 6 hrs 07/05/2024 J45.909 Active Asthma Levocetirizine Dihydrochloride 5 MG Oral Nebulizer - Use every 4 hours 07/05/2024 Nebulizer Mask Adult - Use every 4 hours 07/05/2024 Nebulizer Cup/Tubing - Use every 4 hours 07/05/2024 Melatonin 5 MG 1 tablet in the evening Orally Once a day Ventolin HFA 108 (90 Base) MCG/ACT Inhalation Pantoprazole Sodium 40 MG Oral Ferrous Sulfate 325 (65 Fe) MG Oral EpiPen 2-Ramón 0.3 MG/0.3ML as directed In jection as needed for allergic reaction 05/23/2024 Meclizine HCl 25 MG 1 tablet Orally ever y 12 hrs 10/17/2023 Venlafaxine HCl 50 MG 1 tablet with food Orally Once a day 09/23/2023 Metoprolol Succinate 25 MG 1 capsule Ora lly Once a day 03/08/2025 Next Appt Details Follow Up: 3 Months, Reason: OV Provider Name:Carmelo Ching , 08/02/2025 10:45:00 AM, [address] [facility] [address], [place], [address], Provider Name:Carmelo Ching , 01/03/2026 04:00:00 PM, [address] [facility] [address], [place], [address], Progress Notes * Natasha SCHUSTERDOB:1960 (64 yo F)Acc No.[id number]:04/03/2025 Progress Notes Patient: Natasha COLLIER Provider: Alonso Ching MD :1960 A ge:64 Y S ex:Female Date:04/03/2025 Address:[address] [place] [phone] Subjective: * Chief Complaints: * I [place] deficiencyAsthmaAllergic rhinitisHyperlipidemiaDepressionHiatal herniaObesity * HPI: C OVID-19 Screening: She comes to the office today looking bright and happy. Her abdominal pain has resolved. Her allergies are not troubling her at this time. She is compliant with all of her medications. She feels well and strong today. She denies any new complaints. The epigastric distress from the hiatal hernia has resolved. Questions H ave you had any new onset fever, chills, cough, congestion, sore throat, shortness of breath, muscle aches? N o * ROS: G eneral/Constitutional: pain o nly normal aches and pains. C hills d enies.?Fatigue a dmits. F ever d enies. E NT: Decreased hearing d enies. R espiratory: Cough d enies. C ardiovascular: Chest pain with exertion d enies. D yspnea on exertion?denies. S hortness of breath d enies. G astrointestinal: Constipation d enies. D ecreased appetite d enies.?Diarrhea d enies. H eartburn o ccasional. N ausea d enies. R ectal bleeding d enies. V omiting d enies. H ematology: bruising d enies. p etechiae d enies. S wollen glands n one have been noted. G enitourinary: Frequent urination a t night. M usculoskeletal: Muscle aches d enies. P ainful joints d enies. S ciatica d enies. W eakness d enies. S kin: Itching d enies. R heike d enies. S kin lesion(s)?denies. N eurologic: Difficulty speaking d enies. D izziness d enies.?Headache d enies. L ow back pain d enies. P sychiatric: Depressed mood d enies. * Medical History: * Surgical History: K idney stone removed No history Appendectomy * Hospitalization/Major Diagno stic Procedure: N o history * Family History: F ather: , colon cancer, diagnosed with Cancer. M other: , Unknown. C hilen: alive. D pema(s): alive. She is not [...] Active AsthmaLevocetirizine Dihydrochloride 5 MG Tablet Oral Metoprolol Succinate 25 MG Capsule ER 24 Hour Sprinkle 1 capsule Orally Once a day Medication List reviewed and reconciled with the [...] AsthmaTaking Levocetirizine Dihydrochloride 5 MG Tablet Oral Taking Metoprolol Succinate 25 MG Capsule ER 24 Hour Sprinkle 1 capsule Orally Once a day Medication List reviewed and reconciled with the patient * Allergies: C ontrast Allergy PreMed PackDog DanderIodineno[Allergies Verified] Objective: * Vitals: H t: 56 in, Wt: 181, BMI:40.57, BP: 148/90, HR: 74, Temp: 97.7, Ht-cm: 142.24, Wt- k.1. * Examination: G eneral Examination: GENERAL APPEARANCE: p leasant, well nourished, well developed, in no acute distress, calm and relaxed, morbidly obese, woman. HEAD: a traumatic, normocephalic. EYES: e radha, perrla, anicteric, conjugate. EARS: n ormal. NOSE: s eptum intact. ORAL CAVITY: n ormal, unremarkable. NECK/THYROID: n o jugular venous distention, no carotid bruit, thyroid normal. LYMPH NODES: n o enlarged lymph nodes,spleen normal. SKIN: n o suspicious lesions, anicteric. HEART: n o clicks, gallops, murmurs, or rubs, regular rhythm, S1, S2 normal, no s3, or vascular bruits. LUNGS: c lear to auscultation, no wheezes, rales, rhonchi.? BREASTS: N ot examined. ABDOMEN: b owel sounds normal, no ascites, no organomegaly, no mass, morbid obesity. RECTAL EXAM: n ot examined. MUSCULOSKELETAL: e xtremities unremarkable, no clubbing, cyanosis or edema. PERIPHERAL PULSES: n ormal. NEUROLOGIC: a lert and oriented, cranial nerves 2-12 grossly intact, deep tendon reflexes 2+ symmetrical, motor strength normal upper and lower extremities, sensory exam intact. PSYCH: a lert, oriented. Assessment: * Assessment: 1. M orbid obesity - E66.01 (Primary) N otes :Her body mass index is over 40. We discussed her weight loss strategy. We reviewed her diet and nutrition. We made a plan to lose weight at a rate of one half of a pound per week through a diet restricted in fat calories and sodium. 2 . A NNA1 antibody positive - R76.0 N otes :This will be repeated. There is an inflammatory process in progress. 3 . I [place] deficiency anemia, unspecified - D50.9 N otes :She was continued on the iron therapy. Her ferritin is 212 and her hematocrit is normal. The mean cell volume is normal. The iron deficiency has resolved. 4 . I ntermittent asthma, unspecified asthma [...] times of illness or stress. 8 . U rinary tract infection in female - N39.0 N otes :She has symptoms and back pain and was given an antibiotic. She is having frequent urinary tract infections and the cause will be evaluated. Plan: * Treatment: 2. I [place] deficiency anemia, unspecified L AB: PROFILE, FASTING (COMPREHENSIVE METABOLIC) L AB: CBC w DIFF L AB: PARI (NANCI) L AB: Ferritin L AB: Lipid Panel 3. H yperlipidemia, unspecified hyperlipidemia type L AB: PROFILE, FASTING (COMPREHENSIVE METABOLIC) L AB: CBC w DIFF L AB: PARI (NANCI) L AB: Ferritin L AB: Lipid Panel 4. O thers Continue Metoprolol Succinate Capsule ER 24 Hour Sprinkle, 25 MG, 1 capsule, Orally, Once a day;?Continue Meclizine HCl Tablet, 25 MG, 1 tablet, Orally, every 12 hrs As needed; C ontinue Venlafaxine HCl Tablet, 50 MG, 1 tablet with food, Orally, Once a day; C ontinue Melatonin Tablet, 5 MG, 1 tablet in the evening, Orally, Once a day; C ontinue Ventolin HFA Aerosol Solution, 108 (90 Base) MCG/ACT, Inhalation; C ontinue Pantoprazole Sodium Tablet Delayed Release, 40 MG, Oral; C ontinue Ferrous Sulfate Tablet Delayed Release, 325 (65 Fe) MG, Oral; C ontinue EpiPen 2-Ramón Solution Auto-injector, 0.3 MG/0.3ML, as directed, Injection, as needed for allergic reaction;?Continue Nebulizer Miscellaneous, -, Use every 4 hours As needed for asthma; C ontinue Nebulizer Mask Adult Miscellaneous, -, Use every 4 hours As needed for asthma; C ontinue Nebulizer Cup/Tubing Device, -, Use every 4 hours As needed for Asthma; C ontinue Albuterol Sulfate Nebulization Solution, (2.5 MG/3ML) 0.083%, 3 mL as needed, Inhalation, every 6 hrs As needed for Asthma, Notes to Pharmacist: J45.909 Active Asthma; C ontinue Levocetirizine Dihydrochloride Tablet, 5 MG, Oral. * Procedure Codes: * Preventive Medicine: Counseling: C are goal [...] tobacco use and urged to quit. 0 04/03/2025 * Follow Up: 3 Months (Reason: OV) * Images: * Sign off status: Completed true * Provider: Alonso Ching MD Date: 0 04/03/2025 Generated for Niloi ng/Lisy/eTransmitting on: 1 09/29/2024 11:46 AM EST History and Physical Notes * [...] or vascular bruits LUNGS: clear to auscultatio n, no wheezes, rales, rhonchi ABDOMEN: bowel sounds normal, no ascites, no organomegaly, no mass, morbid obesity NEUROLOGIC: alert and oriented, cranial nerves 2-12 [...]
--- OUTSIDE RECORDS SUMMARY | 2025-04-19 05:20 | XMS_ITS ---
Author Organization [facility] Address [address] [place] [address] Care Team Providers Care Automatic Washer Mechanic Name Role Phone Carmelo Ching MD Primary Care Provider Unavailab Selwyn Gutierrez Jr REASON FOR VISIT fe def anemia, abdominal pain Encounters Encounter Location Date Provider Diagnosis [facility] Outpatient [address] [place] [phone] 04/19/2025 Selwyn Leonard Jr Plan Of Treatment Next Appt Details Provider Name:Selwyn stewart Jr, 08/06/2025 07:30:00 AM, [address] [place] [address], [phone], Progress Notes * ZAIDADEE LORINANGELDOB:1960 (64 yo F)Acc No.[id number]:04/19/2025 EGD and COL/MAC Patient: LI COLLIER Provider: Bar Leonard MD :1960 A ge:64 Y S ex:Female Date:04/19/2025 Address:[address] [place] [address] Pcp:Carmelo Ching MD Subjective: * Chief Complaints: * 1 . Fe def anemia, abdominal pain. * Medical History: Objective: * Vitals: Assessment: Plan: * Treatment: * * The named appointment provid er may or may not be the originator of this progress note, and it is not deemed complete until electronically signed by the appointment provider. Sign off status: Pending * Provider: Bar Leonard MD Date: 0 04/19/2025 Generated for Sarahi sanchez/Lisy/Rosalina on: 09/29/2024 11:45 AM EST
--- OUTSIDE RECORDS SUMMARY | 2025-06-24 07:46 | XMS_ITS ---
Author Organization Carmelo Ching III, MD Address [address] [address] Care Team Providers Care Cad Programmer Name Role Phone Dr. Carmelo Ching III Primary Care Provider [phone] REASON FOR VISIT Refill request Medications Medication SIG (Take, Route, Frequency, Duration) Notes Start Date End Date Status Vitamin D 25 MCG (1000 UT) 1 tablet Orally Once a day for 90 days 06/24/2025 06/19/2026 Active Social History Sex Assigned At : Social History Observation Description Sex Assigned At Female Encounters Encounter Location Date Provider Diagnosis Carmelo Ching III, MD [address] [place] [address] [place] [address] 06/24/2025 Carmelo Ching Plan Of Treatment Medication Medication Name Sig Start Date Stop Date Notes Vitamin D 25 MCG (1000 UT) 1 tablet Oral ly Once a day for 90 days 06/24/2025 06/19/2026 Next Appt Details Provider Name:Carmelo Ching , 08/02/2025 10:45:00 AM, [address] [facility] [place], [address], Provider Name:Carmelo Ching , 01/03/2026 04:00:00 PM, [address] [facility] [place], [address], Progress Notes * Natasha SCHUSTERDOB:1960 (64 yo F)Acc No.[id number]:06/24/2025 Patient: Natasha COLLIER :1960 A ge:64 Y S ex:Female Address:[address] [place] [address], [phone] * Refills Start Vitamin D Tablet, 25 MCG (1000 UT), Orally, 90 Tablet, 1 tablet, Once a day, 90 days, Refills=3 Subjective: * Chief Complaints: * R efill request * Medical History: * Surgical History: * Hospitalization/Major Diagno stic Procedure: * Medications: Objective: * Vitals: * Physical Examination: Assessment: Plan: * Treatment: * Procedure Codes: * true * Date: Generated for Sarahi sanchez/Lisy/Rosalina on: 09/29/2024 11:44 AM EST
--- OUTSIDE RECORDS SUMMARY | 2025-07-04 12:00 | XMS_ITS ---
Author Organization Carmelo Ching III, MD Address [address] [place] [address] [place] [address] Care Team Providers Care Semaphore Operator Name Role Phone Dr. Carmelo Ching III Primary Care Provider Allergies Allergen (clinical drug ingredient) Drug/Non Drug Allergy documented on EMR Reaction Allergy Type Onset Date Status Dog dander Dog Dander Unknown Allergy Active Contrast Allergy PreMed Pack Unknown Drug Allergy Active Iodine Unknown Drug Allergy Active REASON FOR VISIT Follow up Medications Medication SIG (Take, Route, Frequency, Duration) Notes Start Date End Date Status Albuterol Sulfate (2.5 MG/3ML) 0.083% 3 mL as needed Inhalation every 6 hrs As needed for Asthma J45.909 Active Asthma 07/05/2024 Active Levocetirizine Dihydrochloride 5 MG Oral Active Nebulizer Mask Adult - Use every 4 hours As needed for asthma 07/05/2024 Active Nebulizer Cup/Tubing - Use every 4 hours As needed for Asthma 07/05/2024 Active Nebulizer - Use every 4 hours As needed for asthma 07/05/2024 Active Ventolin HFA 108 (90 Base) MCG/ACT Inhalation Active Pantoprazole Sodium 40 MG Oral Active Melatonin 5 MG 1 tablet in the evening Orally Once a day Active Venlafaxine HCl 50 MG 1 tablet with food Orally Once a day 09/23/2023 Active EpiPen 2-Ramón 0.3 MG/0.3ML as directed Injection as needed for allergic reaction 05/23/2024 Active Meclizine HCl 25 MG 1 tablet Orally every 12 hrs As needed 10/17/2023 Active Vitamin D 25 MCG (1000 UT) 1 tablet Orally Once a day 06/24/2025 Active Metoprolol Succinate 25 MG 1 capsule Orally Once a day 03/08/2025 Active Ferrous Sulfate 325 (65 Fe) MG TAKE 1 TABLET BY MOUTH EVERY DAY Active Social History Tobacco Use: Social History Observation Description Date Details (start date - stop date) Former Smoker NA - NA Sex Assigned At : Social History Observation Description Sex Assigned At Female Tobacco Control (Standard) Question Answer Notes Tobacco use: Former smoker How long has it been since you last smoked? Lettya ter than 10 years Additional Findings: Tobacco non-user Ex-cigaret te smoker Encounters Encounter Location Date Provider Diagnosis Carmelo Ching III, MD [address] [place] [address] [address] [place] [address] 07/04/2025 Carmelo Ching Plan Of Treatment Medication Medication Name Sig Start Date Stop Date Notes Albuterol Sulfate (2.5 MG/3ML) 0.083% 3 mL as needed Inhalation every 6 hrs 07/05/2024 J45.909 Active Asthma Levocetirizine Dihydrochloride 5 MG Oral Nebulizer Mask Adult - Use every 4 hours 07/05/2024 Nebulizer Cup/Tubing - Use every 4 hours 07/05/2024 Nebulizer - Use every 4 hours 07/05/2024 Ventolin HFA 108 (90 Base) MCG/ACT Inhalation Pantoprazole Sodium 40 MG Oral Melatonin 5 MG 1 tablet in the evening Orally Once a day Venlafaxine HCl 50 MG 1 tablet with food Orally Once a day 09/23/2023 EpiPen 2-Ramón 0.3 MG/0.3ML as directed In jection as needed for allergic reaction 05/23/2024 Meclizine HCl 25 MG 1 tablet Orally ever y 12 hrs 10/17/2023 Vitamin D 25 MCG (1000 UT) 1 tablet Oral ly Once a day 06/24/2025 Metoprolol Succinate 25 MG 1 capsule Ora lly Once a day 03/08/2025 Ferrous Sulfate 325 (65 Fe) MG TAKE 1 TABLET BY MOUTH EVERY DAY Next Appt Details Provider Name:Carmelo Ching , 08/02/2025 10:45:00 AM, [address] [place] [address] [place], [place], [address], Provider Name:Carmelo Ching , 01/03/2026 04:00:00 PM, [address] [place] [address] [place], [place], [address], Progress Notes * Natasha BURNSDOB:1960 (64 yo F)Acc No.[id number]:07/04/2025 Progress Notes Patient: Natasha COLLIER Provider: Alonso Ching MD :1960 A ge:64 Y S ex:Female Date:07/04/2025 Address:[address] [place] [address], [phone] Subjective: * Chief Complaints: * 1 . Follow up. * HPI: C OVID-19 Screening: Questions H ave you had any new [...] appetite d enies.?Diarrhea d enies. H eartburn d enies. N ausea d enies. R ectal bleeding?denies. V omiting d enies. H ematology: bruising [...] Depressed mood d enies. * Medical History: N on-seasonal allergic rhinitis due to other allergic trigger, Intermittent asthma, unspecified asthma severity, unspecified whether complicated, Hyperlipidemia, unspecified hyperlipidemia type, Obesity due to excess calories with serious comorbidity, unspecified classification, ANNA1 antibody positive, Iron deficiency anemia, unspecified, Pain in left knee, Ureterolithiasis, Abdominal pain, dizziness and syncope. * Surgical History: K idney stone removed , No history , Appendectomy . * Hospitalization/Major Diagno stic Procedure: N o history . * Family History: F ather: , colon [...] non-user E x-cigarette smoker * Medications: T aking Metoprolol Succinate 25 MG Capsule ER 24 Hour Sprinkle 1 capsule Orally Once a day , Taking Meclizine HCl 25 MG Tablet 1 tablet Orally every 12 hrs As needed, Taking Venlafaxine HCl 50 MG Tablet 1 tablet with food Orally Once a day , Taking Melatonin 5 MG Tablet 1 tablet in the evening Orally Once a day , Taking Ventolin HFA 108 (90 Base) MCG/ACT Aerosol Solution Inhalation , Taking Pantoprazole Sodium 40 MG Tablet Delayed Release Oral , Taking EpiPen 2-Ramón 0.3 MG/0.3ML Solution Auto- injector as directed Injection as needed for allergic [...] Notes to Pharmacist: J45.909 Active Asthma, Taking Levocetirizine Dihydrochloride 5 MG Tablet Oral , Taking Ferrous Sulfate 325 (65 Fe) MG Tablet Delayed Release TAKE 1 TABLET BY MOUTH EVERY DAY , Taking Vitamin D 25 MCG (1000 UT) Tablet 1 tablet Orally Once a day , stop date 06/19/2026, Medication List reviewed and reconciled with the patient * Allergies: C ontrast Allergy PreMed Pack, Dog Dander, Iodine. Objective: * Vitals: * Examination: G eneral Examination: GENERAL APPEARANCE: p leasant, well nourished, well developed, in no acute distress, calm and relaxed. HEAD: a traumatic, normocephalic. EYES: e radha, [...] LUNGS: c lear to auscultation . BREASTS: no masses palpable bilaterally. ABDOMEN: b owel sounds normal, no ascites, no organomegaly, no mass. RECTAL EXAM: n ot examined. MUSCULOSKELETAL: e xtremities unremarkable, no clubbing, cyanosis or edema. PERIPHERAL PULSES: n ormal. NEUROLOGIC: a lert and oriented, cranial nerves 2-12 grossly intact, deep tendon reflexes 2+ symmetrical, motor strength normal upper and lower extremities, sensory exam intact. PSYCH: a lert, oriented. Assessment: Plan: * Treatment: * Images: * The named appointment provid er may or may not be the originator of this progress note, and it is not deemed complete until electronically signed by the appointment provider. Sign off status: Pending * Provider: Alonso Ching MD Date: Generated for Sarahi sanchez/Lisy/Rosalina on: 09/29/2024 11:46 AM EST History and Physical [...]
--- OUTSIDE RECORDS SUMMARY | 2025-07-19 04:00 | XMS_ITS ---
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 Carmelo Ching III Primary Care Provider [phone] Allergies Allergen (clinical drug ingredient) Drug/Non Drug Allergy documented on EMR Reaction Allergy Type Onset Date Status Dog dander Dog Dander Unknown Allergy Active Contrast Allergy PreMed Pack Unknown Drug Allergy Active Iodine Unknown Drug Allergy Active REASON FOR VISIT endometrial thickening, iron deficiency anemia, Asthma, Hyperlipidemia, Ureterolithiasis, Morbid obesity, Depression Medications Medication SIG (Take, Route, Frequency, Duration) Notes Start Date End Date Status EpiPen 2-Ramón 0.3 MG/0.3ML as directed Injection as needed for allergic reaction 05/23/2024 Active Nebulizer Mask Adult - Use every 4 hours As needed for asthma 07/05/2024 Active Nebulizer - Use every 4 hours As needed for asthma 07/05/2024 Active Nebulizer Cup/Tubing - Use every 4 hours As needed for Asthma 07/05/2024 Active Metoprolol Succinate ER 50 MG 1 tablet Orally Once a day for 30 days 07/19/2025 Active Ventolin HFA 108 (90 Base) MCG/ACT Inhalation Active Melatonin 5 MG 1 tablet in the evening Orally Once a day Active Pantoprazole Sodium 40 MG Oral Active Meclizine HCl 25 MG 1 tablet Orally every 12 hrs As needed 10/17/2023 Active Venlafaxine HCl 50 MG 1 tablet with food Orally Once a day 09/23/2023 Active Metoprolol Succinate 25 MG 1 capsule Orally Once a day 03/08/2025 Active Vitamin D 25 MCG (1000 UT) 1 tablet Orally Once a day 06/24/2025 Active Albuterol Sulfate (2.5 MG/3ML) 0.083% 3 mL as needed Inhalation every 6 hrs As needed for Asthma J45.909 Active Asthma 07/05/2024 Active Ferrous Sulfate 325 (65 Fe) MG TAKE 1 TABLET BY MOUTH EVERY DAY Active Levocetirizine Dihydrochloride 5 MG Oral Active Immunizations Vaccine Route Administration Date Status Comme nts Influenza Vaccine Afluria IM Intramuscular 07/19/2025 Admi nistered Social History Tobacco Use: Social History Observation [...] Problem Status W/U Status Risk Notes Problem [id number] Thickened endometrium (R93.89) Active confirmed The biopsy showed only benign tissue. She has an appointment to discuss this abnormality with HALL CLERK next week. Vital Signs Temperature 97.9 degrees Fahrenheit 07/19/20 25 Blood pressure systolic 132 mm Hg 07/19/20 25 Blood pressure diastolic 83 mm Hg 025 Heart Rate 65 /min 07/19/2025 Height 56 in in 07/19/2025 Weight 172 lbs 07/19/2025 BMI 38.56 kg/m2 07/19/2025 Encounters Encounter Location Date Provider Diagnosis Carmelo Ching III, MD [address] [place] [address] [place] [address] 07/19/2025 Carmelo Ching Encounter for immunization Z23 ; Iron deficiency anemia, unspecified D50.9 ; Former smoker Z87.891 ; Obesity (BMI 30-39.9) E66.9 ; ANNA1 antibody positive R76.0 ; Intermittent asthma, unspecified asthma severity, unspecified whether complicated J45.20 ; Hyperlipidemia, unspecified hyperlipidemia type E78.5 and Thickened endometrium R93.89 Assessments Encounter Date Diagnosis (ICD Code) Assessment Notes Treat ment Notes Treatment Clinical Notes 07/19/2025 Encounter for immunization (ICD-10 - Z23) After giving informed consent. She received an influenza vaccine without complication. She tolerated it well. 07/19/2025 Iron deficiency anemia, unspecified (ICD-10 - D50.9) She was continued on the iron therapy. Her ferritin is 212 and her hematocrit is normal. The mean cell volume is normal. The iron deficiency has resolved. 07/19/2025 Former smoker (ICD-1 0 - Z87.891) She is highly motivated to remain abstinent from tobacco. She has a plan to prevent relapse in times of illness or stress. 07/19/2025 Obesity (BMI 30-39.9 ) (ICD-10 - E66.9) She has lost 9 more pounds. She says her appetite is good. She has no abdoominal pain or vomiting. She will be followed carefully. 07/19/2025 ANNA1 antibody positive (ICD-10 - R76.0) This will be repeated. There is an inflammatory process in progress. 07/19/2025 Intermittent asthma, unspecified asthma severity, unspecified whether complicated (ICD-10 - J45.20) She was experiencing some mild inspiratory wheezing today but seemed comfortable breathing. Her current medications were continued. 07/19/2025 Hyperlipidemia, unspecified hyperlipidemia type (ICD-10 - E78.5) She is stable at this time. Her lipids are being measured several times a year. I have recommended aggressive weight loss diet low animal fat. 07/19/2025 Thickened endometriu m (ICD-10 - R93.89) The biopsy showed only benign tissue. She has an appointment to discuss this abnormality with HALL CLERK next week. Plan Of Treatment Medication Medication Name Sig Start Date Stop Date Notes EpiPen 2-Ramón 0.3 MG/0.3ML as directed In jection as needed for allergic reaction 05/23/2024 Nebulizer Mask Adult - Use every 4 hours 07/05/2024 Nebulizer - Use every 4 hours 07/05/2024 Nebulizer Cup/Tubing - Use every 4 hours 07/05/2024 Metoprolol Succinate ER 50 MG 1 tablet Orally Once a day for 30 days 07/19/2025 Ventolin HFA 108 (90 Base) MCG/ACT Inhalation Melatonin 5 MG 1 tablet in the evening Orally Once a day Pantoprazole Sodium 40 MG Oral Meclizine HCl 25 MG 1 tablet Orally ever y 12 hrs 10/17/2023 Venlafaxine HCl 50 MG 1 tablet with food Orally Once a day 09/23/2023 Metoprolol Succinate 25 MG 1 capsule Ora lly Once a day 03/08/2025 Vitamin D 25 MCG (1000 UT) 1 tablet Oral ly Once a day 06/24/2025 Albuterol Sulfate (2.5 MG/3ML) 0.083% 3 mL as needed Inhalation every 6 hrs 07/05/2024 J45.909 Active Asthma Ferrous Sulfate 325 (65 Fe) MG TAKE 1 TABLET BY MOUTH EVERY DAY Levocetirizine Dihydrochloride 5 MG Oral Next Appt Details Follow Up: 3 Weeks, Reason: ov Provider Name:Carmelo Ching , 08/02/2025 10:45:00 AM, [address] [place] [address] [place], [place], [address], Provider Name:Carmelo Ching , 01/03/2026 04:00:00 PM, [address] [place] [address] NA[place], [place], [phone], Progress Notes * ZAIDADEENatashaDOB:1960 (64 yo F)Acc No.[id number]:07/19/2025 Progress Notes Patient: Natasha COLLIER Provider: Alonso Ching MD :1960 A ge:64 Y S ex:Female Date:07/19/2025 Address:[address] [place] [id number] Subjective: * Chief Complaints: * E ndometrial thickeningIron deficiency anemiaAsthmaHyperlipidemiaUreterolithiasisMorbid obesityDepression * HPI: C OVID-19 Screening: She returns for a periodic scheduled visit to manage her medical issues. She recently went to the saute chef for postmenopausal spotting. Ultrasound showed a thickened endometrium with cystic changes. H ysteroscopy with biopsy of the endometrium showed benign tissue. She is going to discuss this with her saute chef at an office visit next week. The spotting has stopped. She has no new allergies. Comprehensive blood work was reviewed with her and her anemia is well compensated. She has had no asthma. Her depression is in remission. The arthritis in the left knee continues and is mild to moderate. Questions H ave you had any new onset fever, chills, cough, congestion, sore throat, shortness of breath, muscle aches? N o * ROS: G eneral/Constitutional: pain L eft knee and upper abdomen, otherwise only normal aches and pains. C hills d enies. F atigue a dmits. F ever d enies. E NT: Decreased hearing d enies. R espiratory: Cough d enies. C ardiovascular: Chest pain with exertion d enies. D yspnea on exertion?denies. S hortness of breath d enies. G astrointestinal: Constipation o ccasional. D ecreased appetite d enies. D iarrhea d enies. H eartburn d enies. N ausea d enies. R ectal bleeding [...] with Cancer. M other: , Unknown. C sydneeen: alive. D augvidyaer(s): alive. She is not aware of any [...] non-user E x-cigarette smoker * Medications: T akingFerrous Sulfate 325 (65 Fe) MG Tablet Delayed Release TAKE 1 TABLET BY MOUTH EVERY DAY Vitamin D 25 MCG (1000 UT) Tablet 1 tablet Orally Once a day Metoprolol Succinate 25 MG Capsule ER 24 Hour Sprinkle 1 capsule Orally Once a day Meclizine HCl 25 MG Tablet 1 tablet Orally every 12 hrs As neededVenlafaxine HCl 50 MG Tablet 1 tablet with food Orally Once a day Melatonin 5 MG Tablet 1 tablet in the evening Orally Once a day Ventolin HFA 108 (90 Base) MCG/ACT Aerosol Solution Inhalation Pantoprazole Sodium 40 MG Tablet Delayed Release Oral EpiPen 2-Ramón [...] List reviewed and reconciled with the patientTaking Ferrous Sulfate 325 (65 Fe) MG Tablet Delayed Release TAKE 1 TABLET BY MOUTH EVERY DAY Taking Vitamin D 25 MCG (1000 UT) Tablet 1 tablet Orally Once a day Taking Metoprolol Succinate 25 MG Capsule ER 24 Hour Sprinkle 1 capsule Orally Once a day Taking Meclizine HCl 25 MG Tablet 1 tablet Orally every 12 hrs As neededTaking Venlafaxine HCl 50 MG Tablet 1 tablet with food Orally Once a day Taking Melatonin 5 MG Tablet 1 tablet in the evening Orally Once a day Taking Ventolin HFA 108 (90 Base) MCG/ACT Aerosol Solution Inhalation Taking Pantoprazole Sodium 40 MG Tablet Delayed Release Oral Taking EpiPen [...] As needed for Asthma, Notes to Pharmacist: J45.729 Active AsthmaTaking Levocetirizine Dihydrochloride 5 MG Tablet Oral Medication List reviewed and reconciled with the patient * Allergies: C ontrast Allergy PreMed PackDog DanderIodineno[Allergies Verified] Objective: * Vitals: H t: 56 in, Wt: 172, BMI:38.56, BP: 132/83, HR: 65, Temp: 97.9, Ht-cm: 142.24, Wt- k.02. * P ast Orders: Lab:Pathology * Collection Date 06/25/2025 01/18/2023 Collection Time 12:30 PM 12:24 PM Order Date 06/25/2025 01/18/2023 ???Lab:HPV High risk (Order Date - 04/25/2025) (Collection Date & Time - 04/25/2025 01:24 PM)?ValueReference Range?HPV High RiskNegative Negative -?HPV Genotype 16NegativeNegative -?HPV Genotype 18 NegativeNegative - ???Lab:Pap Smear (Order Date - 04/25/2025) (Collection Date & Time - 04/25/2025 01:24 PM) ???Lab:Bacterial Vaginosis Panel (Order Date - 04/25/2025) (Collection Date & Time - 04/25/2025 10:26 AM)?ValueReference Range?Trichomonas vaginalis PCRNOT DETECTEDNot Detect -?Bacterial Vaginosis PCRPOSITIVEA Negative -?Reena Group PCRNOT DETECTEDNot Detect -?Reena glab krusei PCRNOT DETECTEDNot Detect - ???Lab:CT NG by PCR (Order Date - 04/25/2025) (Collection Date & Time - 04/25/2025 10:26 AM)?ValueReference Range?CT PCRNOT DETECTEDNot Detect. -?NG PCRNOT DETECTEDNot Detect. - ???Imaging:US pelvic and transvaginal (Order Date - 06/13/2025) (Performed Date - 06/13/2025) ???Imaging:US breast LT limited mamm only (Order Date - 05/14/2025) (Performed Date - 05/14/2025) ???Imaging:MM tomosynthesis diagnostic BI (Order Date - 05/14/2025) (Performed Date - 05/14/2025) * Examination: G eneral Examination: GENERAL APPEARANCE: p leasant, well nourished, well developed, in no acute distress, calm and relaxed: obese: woman. HEAD: a traumatic, normocephalic. EYES: e [...] normal, no ascites, no organomegaly, no mass, Epigastric area and right upper quadrant unremarkable. RECTAL EXAM: n ot examined. MUSCULOSKELETAL: e xtremities unremarkable, no clubbing, cyanosis or edema. PERIPHERAL PULSES: n ormal. NEUROLOGIC: a lert and oriented, cranial nerves 2-12 grossly intact, deep tendon reflexes 2+ symmetrical, motor strength normal upper and lower extremities, sensory exam intact. PSYCH: a lert, oriented. Assessment: * Assessment: 1. I [place] deficiency anemia, unspecified - D50.9 (Primary) N otes :She was continued on the iron therapy. Her ferritin is 212 and her hematocrit is normal. The mean cell volume is normal. The iron deficiency has resolved. 2 . E ncounter for immunization - Z23 N otes :After giving informed consent. She received an influenza vaccine without complication. She tolerated it well. 3 . F ormer smoker - Z87.891 N otes :She is highly motivated to remain abstinent from tobacco. She has a plan to prevent relapse in times of illness or stress. 4 . O besity (BMI 30-39.9) - E66.9 N otes :She has lost 9 more pounds. She says her appetite is good. She has no abdoominal pain or vomiting. She will be followed carefully. 5 . A NNA1 antibody positive - R76.0 N otes :This will be repeated. There is an inflammatory process in progress. 6 . I ntermittent asthma, unspecified asthma severity, unspecified whether complicated - J45.20 N otes :She was experiencing some mild inspiratory wheezing today but seemed comfortable breathing. Her current medications were continued. 7 . H yperlipidemia, unspecified hyperlipidemia type - E78.5 N otes :She is stable at this time. Her lipids are being measured several times a year. I have recommended aggressive weight loss diet low animal fat. 8 . T hickened endometrium - R93.89 N otes :The biopsy showed only benign tissue. She has an appointment to discuss this abnormality with HALL CLERK next week. Plan: * Treatment: 2. O thers Continue Ferrous Sulfate Tablet Delayed Release, 325 (65 Fe) MG, TAKE 1 TABLET BY MOUTH EVERY DAY;?Continue Vitamin D Tablet, 25 MCG (1000 UT), 1 tablet, Orally, Once a day; C ontinue Meclizine HCl Tablet, 25 MG, 1 tablet, [...] Delayed Release, 40 MG, Oral; C ontinue EpiPen 2-Ramón Solution Auto-injector, 0.3 MG/0.3ML, as directed, Injection, as needed for allergic reaction; C ontinue Nebulizer Miscellaneous, -, Use every 4 hours [...] C ontinue Levocetirizine Dihydrochloride Tablet, 5 MG, Oral; S tart Metoprolol Succinate ER Tablet Extended Release 24 Hour, 50 MG, 1 tablet, Orally, Once a day, 30 days, 30, Refills 11. * Immunizations: Influenza Vaccine Afluria : 0.5 mL (Dose No:1) (Route: Intramuscular) given by Cathryn Alva on Left Arm (Encounter for immunization) ???Immunization record has been reviewed and updated. * Procedure Codes: 9 [id number] CCIIV4 VAC NO PRSV 0.5 ML [id number] FLU VACC 4 SASHA 3 YRS PLUS IM * Preventive Medicine: Counseling: C are goal [...] of tobacco use and urged to quit. 1 * Follow Up: 3 Weeks (Reason: ov) * Images: * Sign off status: Completed true * Provider: Alonso Ching MD Date: Generated [...] developed, in no acute distress, calm and relaxed: obese: woman HEAD: atraumatic, normocep halic EYES: eomi, perrla, anicte sourav, conjugate EARS: normal NOSE: septum intact NECK/THYROID: no jugular venous di stention, no carotid bruit, thyroid normal HEART: no clicks, gallops, murmurs, or rubs, regular rhythm, S1, S2 normal, no s3, or vascular bruits LUNGS: clear to auscultatio n ABDOMEN: bowel sounds normal, no ascites, no organomegaly, no mass, Epigastric area and right upper quadrant unremarkable NEUROLOGIC: alert and oriented, cranial nerves 2-12 [...]
--- NOTE | 2025-07-30 10:20 | MHC.OFFVIS ---
Vital Signs 07/30/25 10:21 Height 4 ft 11 in Weight 180 lb BMI 36.4 BP 150/82 H Respiration 15 Pulse 68 Pulse Oximetry (%) 98 Intake Visit Reasons: post op Construction Code Administrator Required: Yes Construction Code Administrator Language: Construction Accountant Services: Construction Code Administrator Present (in person) Information Interpreted: non-clinical & clinical Accompanied by: Daughter Allergies Iodinated Contrast Media (IV Contrast Dye) Allergy (Unknown, Verified 07/30/25 10:22) Unknown iodine Allergy (Unknown, Verified 07/30/25 10:22) Unknown Post menopausal: Yes HPI Comments Details: The patient is presenting post hysteroscopy D&C no complaints minimal vaginal bleeding no feverishness chills or abdominal pain. The pathology showed the following: Endometrium, curettage: Benign atrophic endometrium, fragments of benign endometrial polyp, and benign endocervical glandular epithelium; no atypia or carcinoma PFSH Medical History Cervical polyp Thickened endometrium PMB (postmenopausal bleeding) Hiatal hernia Arthritis Anemia Renal stones Asthma HTN (hypertension) Surgical History History of extraction of renal calculus History of esophagogastroduodenoscopy (EGD) H/O colonoscopy Hx of appendectomy Hx of tubal ligation Family History Father Colon cancer Sister Uterine cancer Social History Household Members: Spouse and Family Alcohol intake: never Patient Tobacco Use Status: Former Tobacco user service: No Current occupational status: unemployed Review of Systems Const All systems reviewed & are unremarkable except as noted in HPI and below Reports as per HPI and Reports no additional complaints GI Reports no additional complaints Reports no additional complaints Physical Exam Vital Signs: Last Vital Signs Pulse 68 07/30/25 10:21 Resp 15 07/30/25 10:21 BP 150/82 H 07/30/25 10:21 Pulse Ox 98 07/30/25 10:21 BMI result Body Mass Index 36.4 Assessment & Plan Assessment & Plan (1) PMB (postmenopausal bleeding): Comment: Abnormal thick endometrium by ultrasound Code(s): N95.0 - Postmenopausal bleeding Category: Medical Plan: Discussed with the patient the pathology results. Discussed with the patient the sensitivity, specificity, positive and negative predictive value, of endometrial biopsy in detecting endometrial pathology including but not limited to endometrial hyperplasia, cancer and other pathology; instructed the patient to call in case vaginal bleeding recurs, the next step will be to proceed with further endometrial sampling evaluation to rule out endometrial pathology. All questions answered and the patient verbalized understanding and agreed with the plan. Coding Level of Care Code Est Pt Level 3 (90322) Diagnoses PMB (postmenopausal bleeding) N95.0
[2025-07-30 10:21] VITALS: BP 150/82; PULSE 68; RESP 15; O2SAT 98; BMI 36.4
--- OUTSIDE RECORDS SUMMARY | 2025-07-30 11:45 | XMS_ITS | Patient Health Record ---
Author Organization Carmelo Ching III, MD Address [address] [place] [address] DR NAYAK Deidre [place] [address] Care Team Providers Care Specialty Cook Name Role Phone Dr. Carmelo Ching III Primary Care Provider [phone] Allergies Allergen (clinical drug ingredient) Drug/Non Drug [...] Reviewed date:12/19/2024 02:20:36 PM Interpretation: Performing Lab:[facility], [address] [place] [phone] Notes/Report: Urine Culture Report Result Urine Culture [...] Negative - Menstrating No Complete Blood Count Auto Di ff Reviewed date:10/26/2024 04:55:57 AM Interpretation: Performing Lab:[facility], [address] [place] [phone] Notes/Report: White Blood Count 7.3 4.8-10.8 X10*3/uL [...] Reviewed date:10/26/2024 04:55:57 AM Interpretation: Performing Lab:[facility], [address] [place] [phone] Notes/Report: Sodium 138 135-145 mmol/L Potassium 5.3 [...] PROFILE Reviewed date:10/26/2024 04:55:57 AM Interpretation: Performing Lab:[address] [address] Notes/Report: Iron 61 30-160 mcg/dL Total Iron Binding Capacity 255 228-428 mcg/dL Percent Iron Saturation 24 15-50 % Unsaturated Iron Binding 194 Ferritin Reviewed date:10/26/2024 04:55:57 AM Interpretation: Performing Lab:[facility], [address] [place] [phone] Notes/Report: Ferritin 320 10-250 ng/mL Complete Blood Count Auto Di ff Reviewed date:11/07/2024 03:42:25 PM Interpretation: Performing Lab:[facility], [address] [place] [phone] Notes/Report: White Blood Count 6.6 4.8-10.8 X10*3/uL [...] Reviewed date:11/07/2024 03:42:25 PM Interpretation: Performing Lab:[facility], [address] [place] [phone] Notes/Report: Sodium 141 135-145 mmol/L Potassium 4.1 [...] ff Reviewed date:12/15/2024 07:56:11 AM Interpretation: Performing Lab:[facility], [address] [place] [phone] Notes/Report: White Blood Count 5.7 4.8-10.8 X10*3/uL [...] Reviewed date:12/15/2024 07:56:11 AM Interpretation: Performing Lab:[facility], [address] [place] [phone] Notes/Report: Reticulocytes Absolute 0.085 0.026-0.0 95 X10*6/uL Immature Retic Fraction 14.6 3.0-15.9 % Retic HGB Equivalent 31.7 30.0-35.0 pg Reticulocyte Percent 2.1 0.5-1.8 % Ferritin Reviewed date:12/15/2024 07:56:11 AM Interpretation: Performing Lab:[facility], [address] [place] [phone] Notes/Report: Ferritin 212 10-250 ng/mL Protein Electrophoresis, Ser um Reviewed date:12/19/2024 02:20:36 PM Interpretation: Performing Lab:[facility], [address] [place] [phone] Notes/Report: Prot Elec - Total Protein 7.5 [...] already ordered). THIS TEST WAS PERFORMED AT: [facility] [address] [place] [phone] SOTERO CUBA MD Immunofixation Pnl, Serum Reviewed date:12/19/2024 02:20:36 PM Interpretation: Performing Lab:[address] [address] Notes/Report: IgG 5632 209-0443 mg/dL IgA 476 70-320 mg/dL IgM 82 50-300 mg/dL THIS TEST WAS PERFORMED AT: [facility] [address] [place] [phone] SOTERO CUBA MD Immunofixation Interpretation SEE NOTE No monoclonal protei ns detected. Urinalysis and Microscopic Reviewed date:12/18/2024 08:44:11 AM Interpretation: Performing Lab:[facility], [address] [place] [phone] Notes/Report: Color Urine Yellow Appearance Urine Turbid PH 5.5 5.0-9.0 Glucose Urine UA Negative Negative mg/dL Urine Blood Trace Negative Specific [place] - Urine 1.020 1.005-1.025 Urine Protein Trace [...] date:03/06/2025 01:53:01 PM Interpretation: Performing Lab: Notes/Report: [address] [address] Fluoroscopy Report Signed Patient: Natasha Schuster MR#: [id number] 2 : 1960 Acct:[id number] Age/Sex: 64 / F ADM Date: 03/01/25 Loc: HO.XRAY Attending Dr: Selwyn Leonard MD Ordering Physician: Selwyn Leonard MD Date of Service: 03/01/25 Procedure(s): FL upper GI w air Accession Number(s): [id number] cc: Carmelo Ching MD; Selwyn Leonard MD [...] radius old moderate size hiatal hernia and kptr-kd-ihtckjyg gastroesophageal reflux. The mucosal pattern of stomach, [...] 03/01/25 0924 DD/ 0745 TD/TT: 03/01/25 0805 Education Site Manager: [place] [address] Fluoroscopy Report Signed Patient: Karine Schuster MR#: [id number] 2 : 1960 Acct:[id number] Age/Sex: 64 / F ADM Date: 03/01/25 Loc: HO.XRAY Attending Dr: Jabari Leonard MD Ordering Physician: Selwyn Leonard MD Date of Service: 03/01/25 Procedure(s): FL upp er GI w air Accession Number(s): [id number] cc: Cramelo Ching MD; Selwyn Leonard MD EXAMINATION: XR [...] radius old moderate size hiatal hernia and kxrx-tx-dejzuqzl gastroesophageal ref lux. The mucosal pattern of stomach, duodenal bulb and the sweep is normal FLUOROSCOPY TIME: 1 minute 23 seconds. DOSE AREA PRODUCT: 36.33 uGy-m2 (microgray-meter squared) F L/FL upper GI w air IMPRESSION: Nonreducible moderat e size hiatal hernia with gastroesophageal reflux. Electronically ac d by: Efrem Kaufman MD 03/01/2025 09:24 AM EDT RP Dictated By: Lauren Kaufman MD Signed By: <Electronically signed by Efrem Kaufman MD in OV> 03/01/25 0924 DD/ 0745 TD/TT: 03/01/25 0805 Education Site Manager: [facility] Complete Blood Count Auto Di ff Reviewed date:03/06/2025 01:53:01 PM Interpretation: Performing Lab:[facility], [address] [place] [phone] Notes/Report: White Blood Count 5.3 4.8-10.8 X10*3/uL [...] Reviewed date:03/06/2025 01:53:01 PM Interpretation: Performing Lab:[facility], [address] [place] [phone] Notes/Report: Sodium 140 135-145 mmol/L Potassium 5.2 [...] Reviewed date:03/06/2025 01:53:01 PM Interpretation: Performing Lab:[facility], [address] [place] [phone] Notes/Report: Iron 41 30-160 mcg/dL Total Iron Binding Capacity 289 228-428 mcg/dL Percent Iron Saturation 14 15-50 % Unsaturated Iron Binding 248 Ferritin Reviewed date:03/06/2025 01:53:01 PM Interpretation: Performing Lab:[facility], [address] [place] [phone] Notes/Report: Ferritin 97 10-250 ng/mL Vitamin B12 and Folate Reviewed date:03/06/2025 01:53:01 PM Interpretation: Performing Lab:[facility], [address] [place] [phone] Notes/Report: Vitamin B12 687 200-900 pg/mL NORMAL 200-900 PG/ML INDETERMINATE 160-199 PG/ML DEFICIENT < 160 PG/ML Folate 11.1 > or = 4.0 ng/mL Reference Values: > or = 4.0 ng/mL < 4.0 ng/mL suggests folate deficiency Methotrexate, aminopterin and folinic acid (leucovorin) are chemotherapeutic agents whose molecular structures are similar to folate; therefore, the [employer] folate assay cannot be used for patients using these drugs. CT NG by PCR Reviewed date:04/28/2025 07:04:49 AM Interpretation: Performing Lab:[address] [address] Notes/Report: CT PCR NOT DETECTED Not Detect. [...] Reviewed date:04/28/2025 07:04:49 AM Interpretation: Performing Lab:[facility], [address] [place] [phone] Notes/Report: Trichomonas vaginalis PCR NOT DETECTED Not [...] Reviewed date:06/03/2025 01:05:18 PM Interpretation: Performing Lab:[facility], [address] [place] [phone] Notes/Report: ----- Name: Natasha Schuster Age/Sex: 64/F : 1960 Unit#: [id number] Attend Dr: Anita David CNM Re04/25/25 Status : DEP REF Location: [facility] Disch: ----- SPEC : [id number] REC STATUS: SELINALizbeth DENNIS NUM: [id number] TATIANA: 04/25/25-[address] [facility] [address]: Anita David CNM ENTERED: 04/26/25 45 SP TYPE: Pap Zeina STERN DR: Carmelo Ching MD ORDERED: Pap Smear Interpretation Satisfactory for evaluation. Negative for intraepithelial lesion or malignancy. Moderate inflammation. HPV High Risk: Negative HPV Genotyping 16: Negative HPV Genotyping 18: Negative Clinical Information LMP: Menopausal Previous PAP test: 2 008, unknown findings Other history: Encou nter for well woman exam with routine gynecological exam, polyp of cervix Material Received ThinPrep-Cervical PAP Disclaimer As of July 11, the technical services to include automated prescreening performed by the ThinPrep Imag ing System, PAP screening and HPV testing will be performed at [facility] (CLIA #[id number]), [address] [place] [address]. Testing for H PV was performed using the [employer] YOSELIN 6800 system. The presence of HPV in the female ge nital tract is associated with a number of [...] or more subtypes, whereas a negative result lisa cates such sequences were not detected. All professional ser vices are performed by [facility] ([address] [place] [address]; P h: [phone]; CLIA #[id number]). The PAP Test is a screening procedure with the inherent possibility of both false negative and false positive results. Results should be interpreted in the context of historic and current clinical findings. Reliability of the PAP Test is enhanced by performing the test on a regular repetit danny basis. CONTINUED ON NEXT PAGE ----- Name: Natasha Schuster Age/Sex: 64/F : 1960 Unit#: [id number] Attend Dr: Anita David CNM Re04/25/25 Status : DEP REF Location: [facility] Disch: ----- SPEC : [id number] REC STATUS: SLY COLLINS NUM: [id number] TATIANA: 04/25/25-[address]: Anita David CNM ENTERED: 04/26/25 45 SP TYPE: Pap Smr OTHR DR: Carmelo Ching MD ORDERED: Pap Smear Copies To: Carmelo Ching MD [address] [place] [address] Anita David CNM [facility] Women's Services [address] [place] [address] ----- Signed (signature on file) CARIDAD Garg (ASCP) 04/30/25 0820 ----- END OF REPORT HPV High risk Reviewed date:06/03/2025 01:05:18 PM Interpretation: Performing Lab:[facility], [address] [place] [phone] Notes/Report: HPV High Risk Negative Negative HPV Genotype 16 Negative Negative HPV Genotype 18 Negative Negative HPV testing performed at [facility] (CLIA #[id number]), [address] [place] [address]. Testing for HPV was performed using the [...] date:06/03/2025 01:05:18 PM Interpretation: Performing Lab: Notes/Report: [place] [facility] [address] [place] [address] Mammography Report Signed Patient: Natasha Schuster MR#: [id number] 2 : 1960 Acct:[id number] Age/Sex: 64 / F ADM Date: 05/14/25 Loc: HO.MAMMO Attending Dr: Carmelo Ching MD Ordering Physician: Carmelo Ching MD Results: 2Benign Findings Date of Service: 05/14/25 Follow Up: 1 Year From [facility] ina Mammogram Procedure(s): MM tomosynthesis diagnostic BI Accession Number(s): [id number] cc: Carmelo Ching MD EXAMINATIONS: 1. MM [...] 05/14/25 1715 DD/ 1440 TD/TT: 05/14/25 1500 Education Site Manager: [facility] [address] [place] [address] Mammography Report Signed Patient: Karine Schuster MR#: [id number] 2 : 1960 Acct:[id number] Age/Sex: 64 / F ADM Date: 05/14/25 Loc: HO.MAMMO Attending Dr: Carmelo Ching MD Ordering Physician: Carmelo Ching MD Results: 2Benign Findings Date of Service: Follow Up: 1 Year From Orig inal Mammogram Procedure(s): MM tomosynthesis diagnostic BI Accession Number(s): [id number] cc: Carmelo Ching MD EXAMINATIONS: 1. MM DIAGNOSTIC DIG ITAL BREAST TOMOSYNTHESIS, BILATERAL 2. Targeted ultrasou nd of the left breast CLINICAL INFORMATION: According to the requisition, left breast mass at 6 o'clock position. According to the pat ient, left breast mass at about 3 o'clock [...] Findings are compati ble with fat necrosis. M M/MM tomosynthesis diagnostic BI IMPRESSION: RIGHT BREAST: Negati [...] on the clinical impression. 2. Otherwise, routine a nnual screening mammography. Results were provide d to [...] 05/14/25 1715 DD/ 1440 TD/TT: 05/14/25 1500 Education Site Manager: US breast LT limited mamm on ly Reviewed date:06/03/2025 01:05:18 PM Interpretation: Performing Lab: Notes/Report: [facility]'[address] [place] [address] Ultrasound Report Signed Patient: Natasha Schuster MR#: [id number] 2 : 1960 Acct:[id number] Age/Sex: 64 / F ADM Date: 05/14/25 Loc: HO.MAMMO Attending Dr: Carmelo Ching MD Ordering Physician: Carmelo Ching MD Date of Service: 05/14/25 Procedure(s): US breast LT limited mamm only Accession Number(s): [id number] cc: Carmelo Ching MD EXAMINATIONS: 1. MM [...] 05/14/25 1715 DD/ 1450 TD/TT: 05/14/25 1545 Education Site Manager: [facility] [address] [place] [address] Ultrasound Report Signed Patient: Karine Schuster MR#: [id number] 2 : 1960 Acct:[id number] Age/Sex: 64 / F ADM Date: 05/14/25 Loc: HO.MAMMO Attending Dr: Carmelo Ching MD Ordering Physician: Carmelo Ching MD Date of Service: 05/14/25 Procedure(s): US jamshid ast LT limited mamm only Accession Number(s): [id number] cc: Carmelo Ching MD EXAMINATIONS: 1. MM DIAGNOSTIC DIG ITAL BREAST TOMOSYNTHESIS, BILATERAL 2. Targeted ultrasou nd of the left breast CLINICAL INFORMATION: According to the requisition, left breast mass at 6 o'clock position. According to the pat ient, left breast mass at about 3 o'clock [...] Findings are compati ble with fat necrosis. U S/US breast LT limited mamm only IMPRESSION: RIGHT [...] on the clinical impression. 2. Otherwise, routine a nnual screening mammography. Results were provide d to [...] 05/14/25 1715 DD/ 1450 TD/TT: 05/14/25 1545 Education Site Manager: US pelvic and transvaginal Reviewed date:06/29/2025 06:21:37 AM Interpretation: Performing Lab: Notes/Report: [address] [address] Ultrasound Report Signed with Addenda Patient: Natasha Schuster MR#: [id number] 2 : 1960 Acct:[id number] Age/Sex: 64 / F ADM Date: 06/13/25 Loc: HO.US Attending Dr: Anita David CNM Ordering Physician: Anita David CNM Date of Service: 06/13/25 Procedure(s): US pelvic and transvaginal Accession Number(s): [id number] cc: Carmelo Ching MD; Anita David CNM [...] signed by Macrina Curtis MD in OV> 06/14/25 1248 Addendum Cosigned By: DD/ TD/TT: 06/14/25 CLINICAL [...] in OV> 06/13/251722 DD/ 21 TD/TT: 06/13/251721 Education Site Manager: [place] [address] Ultrasound Report Signed with Addenda Patient: Karine Schuster MR#: [id number] 2 : 1960 Acct:[id number] Age/Sex: 64 / F ADM Date: 06/13/25 Loc: HO. Attending Dr: Anita David CNM Ordering Physician: Anita David CNM Date of Service: 06/13/25 Procedure(s): US pel garrison and transvaginal Accession Number(s): [id number] cc: Carmelo Ching MD; Anita David CNM Reason for Exam: N95 .0 - Postmenopausal bleeding ADDENDUM This document has be en electronically signed by: Macrina Cutris MD on 06/13/2025 17:22:54 ADDENDUM: Receipt of [...] 5.0 - Postmenopausal bleeding Ultrasound of the fe male pelvis Comparison: None provided Technique: Grayscale ultrasound [...] signed by Macrina Curtis MD in OV> 06/13/25 172 DD/ 21 TD/TT: 06/13/251721 Education Site Manager: Pathology Reviewed date:06/29/2025 06:21:36 AM Interpretation: Performing Lab:[facility], [address] [place] [phone] Notes/Report: ----- Name: Natasha Schuster Age/Sex: 64/F : 1960 Unit#: [id number] Attend Dr: Clifton Hammond MD Re06/25/25 Status : DEP REF Location: [facility] Disch: ----- SPEC : [id number] RECD : 06/25/25 STATUS: SLY COLLINS NUM: [id number] TATIANA: 06/25/25 [facility] DR: Clifton Hammond MD ENTERED: 06/25/25 SP TYPE: Surgical OTHR DR: Carmelo Ching MD ORDERED: HE Stain/2, Gross Micro L4 Diagnosis Cervical polyp, resection: Abundant mucus and scant benign endocervical glandular and rare benign squamous epithelium; no polyp identified. Clinical History Cervical polyp Microscopic Description Microscopic sections reviewed. Material Received Cervical polyp Gross Description Received in formalin labeled ?cervical polyp? are fragments of pink-chapman soft tissue and mucus forming in aggregate measuring 1.5 x 1.2 x 0.5 cm which is wrapped in lens paper and entirely submitted f or microscopic examination, multiple pieces in cassette A. ([facility]) IHC S/NG Disclaimer NOTE: Unless otherwi se stated, all tissue is formalin-fixed and paraffin-embedded. Some or all of the immunohistochemical tests reported herein may have been developed and their performance characteristics determined by [facility]. They have not been cleared or appr diana by the U.S. Food and Drug Administration (FDA). However, the FDA has determined that such clearance or approval is not necessary. This laboratory is certified under the Clinical Laboratory Improvement Amendments of 1988 (CLIA) as qualified to perform high complexity clinical laboratory testing. Copies To: Carmelo Ching MD [address] [place], [place] [id number] Clifton Hammond MD [facility] Women's Services [address] [place] [address] CONTINUED ON NEXT PAGE ----- Name: Natasha Schuster Age/Sex: 64/F : 1960 Unit#: [id number] Attend Dr: Clifton Hammond MD Re06/25/25 Status : DEP REF Location: [facility] Disch: ----- SPEC : [id number] RECD : 06/25/25 STATUS: SLY DENNIS NUM: [id number] TATIANA: 06/25/25 [facility] DR: Clifton Hammond MD ENTERED: 06/25/25 SP TYPE: Surgical OTHR DR: Carmelo Ching MD ORDERED: JOSSIE Rodriguez/2, Gross Micro L4 ----- Signed (signature on file) Tiesha Karen 06/26/25 1356 ----- END OF REPORT Pathology Reviewed date:07/26/2025 06:03:49 AM Interpretation: Performing Lab:[facility], [address], [place] [address] Notes/Report: ----- Name: Natasha Schuster Age/Sex: 64/F : 1960 Unit#: [id number] Attend Dr: Clifton Hammond MD Re07/12/25 Status : [facility] Location: [facility] Disch: ----- SPEC : [id number] RECD : 07/12/251358 STATUS: SLY COLLINS NUM: [id number] TATIANA: 07/12/25-12[address] [facility] [address]: Clifton Hammond MD ENTERED: 07/12/25 SP TYPE: Surgical OTHR DR: Carmelo Ching MD ORDERED: HE Stain/2, Gross Micro L4 Diagnosis Endometrium, curetta ge: Benign atrophic endometrium, fragments of benign endometrial polyp, and benign endocervical glandular epithelium; no atypia or carcinoma. Clinical History Pre-Op Dx: Postmenop ausal bleeding Post-Op Dx: Normal endometrial cavity Microscopic Description Microscopic sections reviewed. Material Received [facility] Gross Description Received in formalin on a Telfa pad is a 2.2 x 2.0 x 0.3 cm aggregate of pink-red, glistening, irregula r soft tissue admixed with a minimal amount of clotted blood. The specimen is filtered and totally submitted in cassette A1. ([facility]) Excision to formalin time: Immediate; total time in formalin: 48-72 hours IHC S/NG Disclaimer NOTE: Unless otherwi se stated, all tissue is formalin-fixed and paraffin-embedded. Some or all of the immunohistochemical tests reported herein may have been developed and their performance characteristics determined by [facility]. They have not been cleared or appr diana by the U.S. Food and Drug Administration (FDA). However, the FDA has determined that such clearance or approval is not necessary. This laboratory is certified under the Clinical Laboratory Improvement Amendments of 1988 (CLIA) as qualified to perform high complexity clinical laboratory testing. Copies To: Carmelo Ching MD [address] [place] [address], [place] [id number] CONTINUED ON NEXT PAGE ----- Name: Natasha Schuster Age/Sex: 64/F : 1960 Unit#: [id number] Attend Dr: Clifton Hammond MD Re07/12/25 Status : [facility] Location: [facility] Disch: ----- SPEC : [id number] RECD : 07/12/250470 STATUS: SLY COLLINS NUM: [id number] TATIANA: 07/12/[address] [facility] [address]: Clifton Hammond MD ENTERED: 07/12/25 SP TYPE: Surgical OTHR DR: Carmelo Ching MD ORDERED: HE Stain/2, Gross Micro L4 Copies To: (Continued) Clifton Hammond MD [facility] Women's Services [address] [facility] [place] [address] ----- Signed (signature on file) Tiesha Jones 07/15/25 1336 ----- END OF REPORT Reason For Referral Reason Consult and treat Diagnosis 1 Family history of em otional abuse (Z84.89) Diagnosis 2 Depression, unspecif ied depression type (F32.A) Referral Organization Carmelo Ching III, MD Referring Provider First Name Carmelo Referring Provider Last Name Humza Referring Provider Speciality Internal edicine Referred Provider [facility] for, [facility] Referred Provider Specialty Psychiatry General Notes Cathryn Alva 10/2024 09:06:13 AM >Referral sent to [facility]. 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 EXHAUSTER Diagnosis 1 Encounter for gyneco logical examination (Z01.419) Referral Organization Carmelo Ching III, MD Referring Provider First Name Carmelo Referring Provider Last Name Humza Referring Provider Speciality Internal edicine Referred Organization [facility] nter Referred Provider [facility] er, [facility] Referred Address [address] [place] [address],[facility] [place],[id number] Referred Provider Specialty OB - Gynecol ogy General Notes Cathryn Alva CADEN 11:18:57 AM > Referral Faxed Referral Priority Routine Referral Appointment Date 04/25/2025 Reason Consult and Treat Diagnosis 1 Large hiatal hernia (K44.9) Referral Organization Carmelo Ching III, MD Referring Provider First Name Carmelo Referring Provider Last Name Ching Referring Provider Speciality Internal M edicine Referred Provider General Jane Cuello Referred Provider Specialty General Surg mariela General Notes Cathryn Alva CADEN 05/2025 11:07:00 AM >Referral Faxed, Zoe Sainz 02/25/2025 11:23:51 AM > Anna is calling from [facility] General surgery, she stated they do not treat Hiatal Hernias there. Stated patient could be referred to [facility] or [facility] Referral Priority Routine Referral Appointment Date 04/23/2025 Medications Medication SIG (Take, Route, Frequency, Duration) Notes Start Date End Date Status Metoprolol Succinate ER 50 MG 1 tablet Orally Once a day for 30 days 07/19/2025 Active Ventolin HFA 108 (90 Base) MCG/ACT Inhalation Active Melatonin 5 MG 1 tablet in the evening Orally Once a day Active Metoprolol Succinate 25 MG 1 capsule Orally Once a day 03/08/2025 Active EpiPen 2-Ramón 0.3 MG/0.3ML as directed Injection as needed for allergic reaction 05/23/2024 Active Pantoprazole Sodium 40 MG Oral Active Nebulizer Mask Adult - Use every 4 hours As needed for asthma 07/05/2024 Active Nebulizer - Use every 4 hours As needed for asthma 07/05/2024 Active Vitamin D 25 MCG (1000 UT) 1 tablet Orally Once a day 06/24/2025 Active Albuterol Sulfate (2.5 MG/3ML) 0.083% 3 mL as needed Inhalation every 6 hrs As needed for Asthma J45.909 Active Asthma 07/05/2024 Active Ferrous Sulfate 325 (65 Fe) MG TAKE 1 TABLET BY MOUTH EVERY DAY Active Nebulizer Cup/Tubing - Use every 4 hours As needed for Asthma 07/05/2024 Active Meclizine HCl 25 MG 1 tablet Orally every 12 hrs As needed 10/17/2023 Active Levocetirizine Dihydrochloride 5 MG Oral Active Venlafaxine HCl 50 MG 1 tablet with food Orally Once a day 09/23/2023 Active Immunizations Vaccine Route Administration Date Status Comme nts Influenza, quad Unknown 08/31/2018 Administered SHINGRIX Unknown 02/05/2022 Administered Influenza no Preserv 3 and > Unknown 07/09/2022 Administered COVID PFIZER Unknown 11/05/2020 Administered COVID PFIZER Unknown 08/20/2021 Administered SHINGRIX Unknown 04/12/2022 Administered Influenza no Preserv 3 and > Unknown 07/08/2021 Administered COVID PFIZER Unknown 11/28/2020 Administered Influenza no Preserv 3 and > Unknown 07/15/2017 Administered Fluzone High-Dose (HD-IIV3) Unknown 07/17/2024 Administered Influenza Vaccine Afluria IM Intramuscular 07/19/2025 Admi [...] Problem Status W/U Status Risk Notes Problem 9085040 Former smoker (Z87.891) Active confirmed She is highly motivated to remain abstinent from tobacco. She has a plan to prevent relapse in times of illness or stress. Problem Iron deficiency anemia (49535176) Iron deficiency anemia, unspecified (D50.9) Active confirmed She was continued on the iron therapy. Her ferritin is 212 and her hematocrit is normal. The mean cell volume is normal. The iron deficiency has resolved. Problem 30906561 Epigastric pain (R10.13) Active confirmed We have requested the records of the recent gastroenterology consultation. No change in her medications was made. Her weight is stable and her nutrition seems good. She has had no nausea vomiting or diarrhea. The pain today was reproduced by pressure over scar in the upper anterior abdominal wall. This raises a question of nerve entrapment. Problem 22434531 Ureterolithiasis (N20.1) Active confirmed She is asymptomatic at this time, but has a history of renal colic. Her calcium will be determined. We will see check her uric acid. She will notify me at once if she develops any additional hematuria or ureteral pain Problem 273891865 Obesity (BMI 30-39.9) (E66.9) Active confirmed She has los t 9 more pounds. She says her appetite is good. She has no abdoominal pain or vomiting. She will be followed carefully. 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 There is an inflammatory process in progress. Problem 42741069 Hyperlipidemia, unspecified hyperlipidemia type (E78.5) Active confirmed She is stable a t this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
--- OUTSIDE RECORDS SUMMARY | 2025-07-30 11:45 | XMS_ITS | Data Portability ---
Author Organization [place] - [facility], Allergy Address [address] [place] [address] [address] Assessment No assessment recorded. Plan of Treatment [...] Organization Details Recorded Time Bleeding from nose 555453836 Active 2022 Epistaxis; Note: Date Diagnosed: 08/04/2023 10:17 AM (R04.0) Not Available [facility] 4 03:25:05 Dizziness and giddiness 714553097 Active 2022 Dizziness and giddiness; Note: Date Diagnosed: 08/04/2023 10:34 AM (R42) Not Available [facility] 4 03:25:05 Headache 34397870 Active 2022 Headache, unspecifie d; Note: Date Diagnosed: 08/04/2023 10:34 AM (R51.9) Not Available [facility] 4 03:25:05 Essential hypertens ion 02650770 Active 2022 Essential (primary) hypertensi on; Note: Date Diagnosed: 08/04/2023 10:41 AM (I10) Not Available [facility] 4 03:25:04 Anterior epistaxis 072963358 Active 2023 JUAN ANTONIO LEIGH MD [address],[place] [address], [place], [address] , [facility] 4 09:53:04 Problem Notes None recorded. Procedures Surgical History Date Name Laterality Status Provider Name and Address Organization Details Recorded Time 4 Epistaxis Simple Nasal Cautery Right completed JUAN ANTONIO LEIGH MD [address],[facility], [place], [address], [facility] 02/02/2024 09:50:16 Imaging Results None recorded. Procedure Notes None recorded. Medical Equipment None Reported. Allergies Allergen ID Allergen Name Allergen Category Reaction Reaction Severity Criticality Documentation Date Start Date Code Code System Note Provider Name and Address Organization Details Recorded Time 218709 Iodinated contrast media (substanc e) medicatio n other Not available Not available 01/31/2024 17205 2003 SNOMED React ion: Unkno wn; Not Available [facility] 4 01:22:27 Medications Name Sig Start Date Stop Date Status Note LastModified by Organization Details LastModified Time vitamin d3 1,000 unit softg active Not Available Not Available Not Available melatonin 5 mg tablet active Not Available Not Available Not Available fluconazo le 100 mg tablet 02/01 completed Not Available Not Available Not Available cetirizin e 10 mg tablet 02/01 completed Medicatio n ID: [id number] Br and Name: cetirizin e Send Method: E-Prescri bed Subs Allowed: subs OK Medica tionGener icName: cetirizin e Medicat ion ID: [id number] Br and Name: cetirizin e Send Method: [...] tablet,de layed release active Medicatio n ID: [id number] Br and Name: pantopraz ole Send Method: [...] 30 mg tablet active Medicatio n ID: [id number] Br and Name: lisinopri l Send Method: E-Prescri bed Subs Allowed: subs OK Medica tionGener icName: lisinopri l Not Available Not Available Not Available ferrous sulfate 325 mg (65 mg iron) tablet,de layed release active Not Available Not Available Not Available Ventolin HFA 90 mcg/actua tion aerosol inhaler active Medicatio n ID: [id number] Br and Name: Ventolin HFA Send Method: E-Prescri bed Subs Allowed: subs OK Medica tionGener icName: Ventolin HFA Not Available Not Available Not Available cholecalc iferol (vitamin D3) 25 mcg (1,000 unit) capsule active Not Available Not Available Not Available mirtazapi ne 7.5 mg tablet active Not Available Not Available Not Available melatonin 5 mg tablet active Medicatio n ID: [id number] Br and Name: MELATONIN 5 MG TABLET Se nd Method: E-Prescri bed Subs Allowed: subs OK Medica tionGener icName: MELATONIN 5 MG TABLET Not Available Not Available Not Available Vitals Date Recorded Body weight Provider Name an d Address Organization Details Last Updated DateTime 02/02/2024 94355.85 g Bina Roche [place] - [facility] 02/02/2024 09:25:14 Social History None recorded. Functional [...] Note 467 JUAN ANTONIO LEIGH MD [facility] [address] [place] [address] 02/02/2024 09:16:27 02/02/2024 09:55:49 Anterior epistaxis 830892102 R04.0 Most recent nosebleed was about a month ago. There was a small vessel of the right anterior septum which I cauterized . I did student support counselor her that I cannot be sure that this is the vessel that has been bleeding. Had some imaging at [facility] which I requested but per their report was normal. We had a detailed discussion on nasal humidifica tion with humidifier , saline sprays, saline jelly at night, applied to the outer nares. Using pressure and Afrin as needed for a nosebleed was discussed. Essential hypertension 83643398 I10 Health Concerns Section Related Observation LastModified by Organization Detai ls LastModified Time None Recorded Concern Status LastModified by Organization Details LastModified Time None Recorded Advance Directives Directive None Recorded Payers Insurance Date Sequence Insurance Name Policy Number Policy Smith Covered Member ID Smith Member ID Guarantor Name 02/02/2024 1 [place] [facility] Natasha Schuster [id number] Natasha Schuster Notes Date Note Type Note Provider Name and Address Organization Details Recorded Time 02/02/2024 text/html 63 yo F presents with recurrent epistaxis. JUAN ANTONIO LEIGH MD [address] [address], [place], [address], [facility] - [facility] 02/02/2024 09:57:05 OBGyn Episode No OBEpisode recorded.
--- OUTSIDE RECORDS SUMMARY | 2025-07-30 11:47 | XMS_ITS | Patient Health Record ---
Author Organization [facility] Address [address] [place] [address] Care Team Providers Care Pot Fisher Name Role Phone Carmelo Ching MD Primary Care Provider Selwyn Cotto Jr Unavailable Allergies Allergen (clinical drug ingredient) Drug/Non Drug Allergy documented on EMR Reaction Allergy Type Onset Date Status Iodine Unknown Drug Allergy Active iv contrast (uncoded) Unknown Allergy Active Results Component Value Reference Range Notes TSH reflex Free T4 Reviewed date:02/25/2025 08:38:06 AM Interpretation: Performing Lab:[address] [address] Notes/Report: TSH reflex Free T4 3.44 0.32-4.0 uIU/mL Complete Blood Count no Diff Reviewed date:02/25/2025 08:37:59 AM Interpretation: Performing Lab:[facility], [address] [place] [address] Notes/Report: White Blood Count 6.5 4.8-10.8 X10*3/uL [...] Panel Reviewed date:02/25/2025 08:37:52 AM Interpretation: Performing Lab:[address] [address] Notes/Report: Bilirubin Total 0.5 0.0-1.0 mg/dL Bilirubin Direct 0.1 0.0-0.5 mg/dL Aspartate Amino Transferase 19 5-31 U/L Alanine Aminotransferase 12 0-31 U/L Total Protein 7.8 6.5-8.0 g/dL Albumin Level 3.9 3.5-5.0 g/dL Alkaline Phosphatase 76 39-117 U/L Lipase Reviewed date:02/25/2025 08:37:48 AM Interpretation: Performing Lab:[address] [address] Notes/Report: Lipase 22 8-78 U/L FL upper GI w air Reviewed date:03/04/2025 08:42:07 AM Interpretation: Performing Lab: Notes/Report: [address] [address] Fluoroscopy Report Signed Patient: Li Schuster MR#: [id number] 2 : 1960 Acct:[id number] Age/Sex: 64 / F ADM Date: 03/01/25 Loc: HO.YAMILETHAY Attending Dr: Selwyn Leonard MD Ordering Physician: Selwyn Leonard MD Date of Service: 03/01/25 Procedure(s): FL upper GI w air Accession Number(s): [id number] cc: Carmelo Ching MD; Selwyn Leonard MD [...] radius old moderate size hiatal hernia and [id number] gastroesophageal reflux. The mucosal pattern of stomach, [...] OV> 03/01/2524 DD/ 0745 TD/TT: 03/01/25 0805 Barker Peeler: LIANNA Reason For Referral Referring Provider First Name Carmelo Referring Provider Last Name Humza Referring Provider Speciality Oncology Referred Organization [facility] Referred Provider Selwyn Leonard Jr Referred Address [address] [place] [address], Referred Provider Specialty Gastroentero logy General Notes Socorro Harden 025 11:36:28 AM EST > requested a [facility] referral from Dr. Ching's office for visit with on [phone] Referral Priority Routine Medications Medication SIG (Take, Route, Frequency, Duration) Notes Start Date End Date Status Dulcolax 5 MG 4 tablets for bowel prep Orally 2 pills at 3:00 p.m. and 7:00 p.m. the day before the procedure; Duration: 1 days 03/29/2025 Active MiraLax 17 GM/SCOOP take for bowel prep Orally Once a day; Duration: 1 days 03/29/2025 Active Lisinopril 30 MG Oral; Duration: 30 Active Pantoprazole Sodium 40 MG Oral; Duration: 30 Active Melatonin Active Ferrous Sulfate 325 (65 Fe) MG Oral; Duration: 30 Active Immunizations Vaccine Route Administration Date [...] W/U Status Risk Notes Problem Abdominal pain (20175581) Abdominal pain (R10.9) Active confirmed Problem Iron deficiency anemia (42409244) Iron deficiency anemia (D50.9) Active confirmed Problem Hiatal hernia (51147651) Hiatal hernia (K44.9) Active confirmed Problem Abnormal feces (488471551) Heme positive stool (R19.5) Active confirmed Problem Iron deficiency anemia (63928379) Iron deficiency anemia, unspecified iron deficiency anemia type (D50.9) Active confirmed Vital Signs Temperature 97.3 degrees Fahrenheit 06/03/2025 Blood pressure diastolic 01 mm Hg 06/03/2025 Height 56 in 06/03/2025 Blood pressure systolic 001 mm Hg 06/03/2025 Weight 179.8 lbs 06/03/2025 BMI 40.31 kg/m2 06/03/2025 Encounters Encounter Location Date Provider Diagnosis [facility] [address] [place] [address] 02/07/2025 Selwyn Leonard Jr Iron deficiency anemia, unspecified iron deficiency anemia type D50.9 ; Abdominal pain R10.9 and Hiatal hernia K44.9 [facility] [address] [place] [address] 06/03/2025 Selwyn Leonard Jr Iron deficiency anemia D50.9 [facility] [address] [place] [address] 08/15/2024 Selwyn Leonard Jr [facility] [address] [place] [address] 11/07/2024 Selwyn Leonard Jr [facility] [address] [place] [address] 02/19/2025 Selwyn Leonard Jr Abdominal cramping R10.9 [facility] [address] [place] [address] 02/25/2025 Selwyn Leonard Jr Iron deficiency anemia, unspecified iron deficiency anemia type D50.9 [facility] [address] [place] [address] 03/04/2025 Selwyn Leonard Jr Iron deficiency anemia D50.9 and Abdominal pain R10.9 [facility] [address] [place] [address] 03/28/2025 Selwyn Leonard Jr [facility] [address] [place] [address] 04/01/2025 Selwyn Leonard Jr [facility] [address] [place] [address] 04/19/2025 Selwyn Leonard Jr [facility] [address] [place] [address] 04/19/2025 Selwyn Leonard Jr [facility] [address] [place] [address] 07/04/2025 Selwyn Leonard Jr Assessments Encounter Date Diagnosis [...] her upper GI series and lab work. 06/03/2025 Iron deficiency anemia (ICD-10 - D50.9) We discussed upper endoscopy and colonoscopy today. We discussed risks and benefits of the procedure today. She understands these and agrees to proceed. This will be scheduled at her convenience. Follow-up will be pending the results of her procedures. 02/19/2025 Abdominal cramping (ICD-10 - R10.9) 02/25/2025 [...] COLONOSCOPY 03/05/2025 Next Appt Details Provider Name:Selwyn Alistair stewart Jr, 08/06/2025 07:30:00 AM, [address] [facility] , [place], [place], [phone], Insurance Providers Payer Name Payer Address Payer Phone Subscriber Number Group Number Insured Name Patient Relationship to Insured Coverage Start Date Coverage End Date MEDICAID OF [employer] [address] [place] [phone] [id number] LI SCHUSTER Self - patient is the insured Medical (General) History Medical History History ICD Code hypertension asthma kidney stones Anemia arthritis Iron deficiency anemia, uppe r endoscopy and colonoscopy 2022, hiatal hernia and normal colonoscopy, capsule endoscopy 09/10, negative Surgical History Surgery Date(Month/Year) tubal ligation kidney stone removed appendectomy
== END 2025-07-30 10:29 | disposition home or self-care (01) ==
LOC: HO.HWS 10:13
PROVIDERS: PCP Internal Medicine Medical Oncology; Visit Provider Obstetrics & Gynecology
DX: N95.0 Postmenopausal bleeding (principal)
CPT/HCPCS: 99213

== ENCOUNTER → 2025-07-30 10:13 | Outpatient (BNVA) | payer MEDICAID, SELFPAY | PROVIDERS: PCP Internal Medicine Medical Oncology; Visit Provider Obstetrics & Gynecology | DX: N95.0 Postmenopausal bleeding (principal) | CPT/HCPCS: 99212 ==